=== PATIENT | male | born 1940 | race Two or more races ===

== ENCOUNTER 2018-04-01 18:02 | Inpatient (IN) | payer MEDICARE, MEDICAID ==
[~2018-04-01] VITALS: Ht 165.1 cm; Wt 59.4 kg
[2018-04-01 18:58] LABS: BASOPHILS % (AUTO) 0.9 % (0.0-2.0); HEMATOCRIT 31 % (39-51); HEMOGLOBIN 10.1 g/dL (13.5-17.5); LYMPHOCYTES # (AUTO) 0.9 /CMM (0.8-4.8); LYMPHOCYTES % (AUTO) 17.4 % (20.0-44.0); MEAN CORPUSCULAR HEMOGLOBIN 32 PG (26.0-33.0); MEAN CORPUSCULAR HGB CONC 33 g/dl (31.0-36.0); MEAN CORPUSCULAR VOLUME 99 fL (80-96); MONOCYTES # (AUTO) 0.6 /CMM (0.1-1.30); MONOCYTES % (AUTO) 11.5 % (2.0-12.0); NEUTROPHILS # (AUTO) 3.5 /CMM (1.8-8.9); NEUTROPHILS % (AUTO) 69.2 % (43.0-81.0); PLATELET COUNT (AUTO) 201 /CMM (150-450); RED BLOOD CELL COUNT(AUTO) 3.12 MIL/uL (4.5-6.0); WHITE BLOOD COUNT (AUTO) 5.1 K/uL (4.3-11.0)
[2018-04-01] MEDS ORDERED: IV NS 0.9% 500 ML BAG IV ONE (19:00)
[2018-04-01 19:06] LABS: CALCIUM, SERUM 8.5 mg/dL (8.5-10.1); CARBON DIOXIDE 31 mmol/L (21-32); CHLORIDE 106 mmol/L (98-107); CREATININE 1.4 mg/dL (0.6-1.3); GLUCOSE 116 mg/dL (74-106); POTASSIUM 3.9 mmol/L (3.5-5.1); SODIUM SERUM 141 mmol/L (136-145); UREA NITROGEN, BLOOD 21 mg/dL (7-18)
[2018-04-01 19:12] LABS: ALANINE AMINOTRANSFERASE 34 U/L (12-78); ALBUMIN 3.6 g/dL (3.4-5.0); ALKALINE PHOSPHATASE 85 U/L (46-116); ASPARTATE AMINOTRANSFERASE 22 U/L (15-37); BILIRUBIN,DIRECT 0.1 mg/dL (0.0-0.2); BILIRUBIN,TOTAL 0.3 mg/dL (0.2-1.0); TOTAL PROTEIN, SERUM 7.6 g/dL (6.4-8.2)
[2018-04-01] MEDS ORDERED: LIDOCAINE VISCOUS 2% UD 15 ML UDC ONE (21:51)
[2018-04-01] MEDS ORDERED: MIDAZOLAM HCL 2 MG/2ML VIAL ONE (21:57)
[2018-04-01] MEDS ORDERED: MORPHINE SULFATE INJ 2 MG/ML DISP.SYRIN IV PRN (22:00)
[2018-04-01] MEDS ORDERED: MIDAZOLAM HCL 2 MG/2ML VIAL IV ONE (22:00)
[2018-04-01] MEDS ORDERED: ZOLPIDEM TARTRATE 5 MG TABLET PO PRN (22:00)
[2018-04-01] MEDS ORDERED: IV NS 0.9% 1,000 ML IV PRN (22:00)
[2018-04-01] MEDS ORDERED: BISACODYL SUPP (10 MG) 10 MG/SUPP.RECT SUPP.RECT RC PRN (22:00)
[2018-04-01 23:05] VITALS: BP 148/73
[2018-04-02] MEDS: PANTOPRAZOLE 40 MG VIAL IV SCH ×3 (00:32→21:11)
[2018-04-02 01:37] VITALS: BP 137/75
[2018-04-02 04:00] VITALS: BP 154/71
[2018-04-02 04:59] VITALS: BP 154/71
[2018-04-02 07:12] LABS: EOSINOPHILS % (AUTO) 0.2 % (0.0-6.0); HEMATOCRIT 31 % (39-51); HEMOGLOBIN 10.1 g/dL (13.5-17.5); LYMPHOCYTES # (AUTO) 0.7 /CMM (0.8-4.8); LYMPHOCYTES % (AUTO) 13.5 % (20.0-44.0); MEAN CORPUSCULAR HEMOGLOBIN 33 PG (26.0-33.0); MEAN CORPUSCULAR HGB CONC 33 g/dl (31.0-36.0); MEAN CORPUSCULAR VOLUME 101 fL (80-96); MONOCYTES # (AUTO) 0.5 /CMM (0.1-1.30); MONOCYTES % (AUTO) 9.4 % (2.0-12.0); NEUTROPHILS # (AUTO) 3.9 /CMM (1.8-8.9); NEUTROPHILS % (AUTO) 76.9 % (43.0-81.0); PLATELET COUNT (AUTO) 145 /CMM (150-450); RDW COEFFICIENT OF VARIATION 15.9 (11.5-15.0); RED BLOOD CELL COUNT(AUTO) 3.04 MIL/uL (4.5-6.0)
[2018-04-02 07:14] LABS: CHOLESTEROL 111 mg/dL (<200); HDL CHOLESTEROL 47 mg/dL (40-60); LDL 59 mg/dL (0-99); TRIGLYCERIDES 62 mg/dL (30-150)
[2018-04-02 07:34] LABS: CALCIUM, SERUM 8.1 mg/dL (8.5-10.1); CARBON DIOXIDE 31 mmol/L (21-32); CHLORIDE 107 mmol/L (98-107); GLUCOSE 133 mg/dL (74-106); PHOSPHORUS 2.4 mg/dL (2.5-4.9); POTASSIUM 3.8 mmol/L (3.5-5.1); SODIUM SERUM 144 mmol/L (136-145); UREA NITROGEN, BLOOD 19 mg/dL (7-18)
[2018-04-02 08:00] VITALS: BP 124/81
[2018-04-02] MEDS ORDERED: MORPHINE SULFATE INJ 4 MG/ML DISP.SYRIN IV PRN (08:01)
[2018-04-02] MEDS ORDERED: AMLO10TA2 PO (08:05)
[2018-04-02] MEDS: HEPARIN SODIUM, PORCINE 5000 UNITS/1 ML VIAL SQ SCH ×3 (09:00→21:12)
[2018-04-02 16:00] VITALS: BP 172/70
[2018-04-02] MEDS ORDERED: NEUTRA PHOS 1 POWD.PACKET PO ONE (17:00)
[2018-04-02] MEDS: ONDANSETRON HCL/PF 4 MG/2 ML VIAL IVP PRN ×2 (17:57→21:11)
[2018-04-02 20:00] VITALS: BP 154/74
[2018-04-02] MEDS ORDERED: Morphine Sulfate Inj IV (20:44)
[2018-04-02] MEDS ORDERED: PANT40VI IV (20:44)
[2018-04-02] MEDS ORDERED: BISA10SU8 RC (20:44)
[2018-04-02] MEDS ORDERED: HEPA50008 SQ (20:44)
[2018-04-02] MEDS ORDERED: ONDA4VIA30 IVP (20:44)
[2018-04-02] MEDS ORDERED: NORM10004 IV (20:44)
== END 2018-04-02 22:59 | disposition short-term general hospital (02) | DRG 388 ==
LOC: ER 18:05 → MEDSG2 21:14 → TELE 22:41
PROVIDERS: ADMIT Nurse Practitioner Acute Care; ATTEND Nurse Practitioner Acute Care
DX: K56.609 Unspecified intestinal obstruction, unspecified as to partial versus complete obstruction (principal); N17.0 Acute kidney failure with tubular necrosis; I12.9 Hypertensive chronic kidney disease with stage 1 through stage 4 chronic kidney disease, or unspecified chronic kidney disease; N18.9 Chronic kidney disease, unspecified; Z85.038 Personal history of other malignant neoplasm of large intestine; Z85.05 Personal history of malignant neoplasm of liver; Z98.890 Other specified postprocedural states; Z90.49 Acquired absence of other specified parts of digestive tract; D63.8 Anemia in other chronic diseases classified elsewhere
CPT/HCPCS: 36415; 71045-TC; 74018; 80048-TC; 80061-TC; 80076-TC; 83735-TC; 84100-TC; 85025-TC; 87081-TC; A4606; C9113; J1644; J2250; J2405; J7030; Z7610

== ENCOUNTER 2020-07-01 18:55 | Inpatient (IN) | payer MEDICARE, OTHER ==
[~2020-07-01] VITALS: Ht 167.6 cm; Wt 63.5 kg
[~2020-07-01 18:55] MED LIST: AMLO-213 PO; BISA10SU11 RC; HEPA50008 SQ; Morphine Sulfate Inj IV; NORM10004 IV; ONDA4VIA23 IVP; PANT40VI IV
--- NOTE | 2020-07-01 19:05 | NUR ---
PT BIBRA C/O SOB. BILATERAL WHEEZING NOTED UPON AUSCULTATION. . PT SATTING ON THE 80'S ON ROOM AIR PER REPORT. PT RECEIVED BREATHING TX CIRCUIT WALKER. PT NOW SATTING 98%, PLACED ON 3LPM VIA N/C. PT CONNECTED TO THE SANDWICH ARTIST AND POX
[2020-07-01] MEDS ORDERED: ACETAMINOPHEN ES 500 MG TABLET ONE (19:08)
--- NOTE | 2020-07-01 19:19 | NUR ---
INFLUENZA SWAB SENT TO LAB
--- NOTE | 2020-07-01 19:19 | NUR ---
COVID SWAB COLLECTED AND SENT TO LAB
[2020-07-01] MEDS ORDERED: ACETAMINOPHEN ES 500 MG TABLET PO ONE (19:30)
--- NOTE | 2020-07-01 19:40 | NUR ---
XRAY AT BEDSIDE
[2020-07-01 19:44] LABS: HEMOGLOBIN 9.1 g/dL (13.5-17.5); MEAN CORPUSCULAR HGB CONC 32 g/dl (31.0-36.0); MEAN CORPUSCULAR VOLUME 104 fL (80-96); MONOCYTES # (AUTO) 0.3 /CMM (0.1-1.30)
[2020-07-01 19:49] LABS: BASOPHILS % (AUTO) 0.8 % (0.0-2.0); EOSINOPHILS % (AUTO) 0.5 % (0.0-6.0); HEMATOCRIT 28 % (39-51); LYMPHOCYTES % (AUTO) 22.9 % (20.0-44.0); MONOCYTES % (AUTO) 7.9 % (2.0-12.0); NEUTROPHILS % (AUTO) 67.9 % (43.0-81.0); PLATELET COUNT (AUTO) 168 /CMM (150-450); RED BLOOD CELL COUNT(AUTO) 2.72 MIL/uL (4.5-6.0); WHITE BLOOD COUNT (AUTO) 4.4 K/uL (4.3-11.0)
[2020-07-01 20:03] LABS: D-DIMER 5.64 mg/L(FEU (0.17-0.50)
[2020-07-01 20:13] LABS: ALANINE AMINOTRANSFERASE 102 U/L (12-78); ALKALINE PHOSPHATASE 185 U/L (46-116); ASPARTATE AMINOTRANSFERASE 257 U/L (15-37); B-TYPE NATRIURETIC PEPTIDE 1102 PG/ML (0-125); BILIRUBIN,TOTAL 1.3 mg/dL (0.2-1.0); CALCIUM, SERUM 7.1 mg/dL (8.5-10.1); CARBON DIOXIDE 24 mmol/L (21-32); CHLORIDE 107 mmol/L (98-107); CREATININE 1.1 mg/dL (0.6-1.3); GLUCOSE 153 mg/dL (74-106); SODIUM SERUM 144 mmol/L (136-145); TOTAL PROTEIN, SERUM 6.9 g/dL (6.4-8.2); UREA NITROGEN, BLOOD 22 mg/dL (7-18)
--- NOTE | 2020-07-01 20:22 | NUR ---
RT AT BEDSIDE FOR ABG
[2020-07-01 20:28] LABS: ABG BASE EXCESS -4.9 mmol/L; ABG OXYGEN SATURATION 91.7 % (92.0-98.5); ABG PCO2 37.2 mmHg (35.0-45.0); ABG PH 7.352 (7.350-7.450); ABG PO2 71.5 mmHg (75.0-100.0); AaDO2 170.9 mmHg; COHb 0.8 % (0.5-1.5); MetHb 0.4 % (0.0-1.5); O2Hb 90.6 % (94.0-97.0); SITE, ABG Right Radial; VENT MODE, BG 5L NC
[2020-07-01 20:28] LABS: BILIRUBIN,URINE SMALL (NEGATIVE); BLOOD, URINE NEGATIVE Ery/uL (NEGATIVE); COLOR,URINE YELLOW (YELLOW); LEUKOCYTE ESTERASE ,URINE NEGATIVE (NEGATIVE); NITRITE, URINE NEGATIVE (NEGATIVE); PH,URINE 5.5 (5.0-8.0); PROTEIN,URINE TRACE mg/dl (NEGATIVE); UGLUCOSE NEGATIVE (NEGATIVE)
[2020-07-01 20:42] LABS: RBC,URINE 0-2 /HPF (0-2); WBC,URINE 0-2 /HPF (0-3)
[2020-07-01 20:43] LABS: BACTERIA,URINE RARE /HPF (None Seen); SQUAMOUS EPITHELIAL CELL,UR 0-2 /HPF (None Seen)
--- NOTE | 2020-07-01 20:46 | NUR ---
PT'S SON CIELO [phone]
[2020-07-01 20:59] LABS: BAND % (MANUAL) 12 % (0.0-5.0); EOSINOPHILS % (MANUAL) 2 % (0-4); LYMPHOCYTES % (MANUAL) 26 % (16-48); MONOCYTES % (MANUAL) 5 % (0-11.0); NEUTROPHILS % (MANUAL) 55 (42-76)
--- NOTE | 2020-07-01 20:59 | NUR ---
YASHIRA SENT TO LAB
[2020-07-01] MEDS ORDERED: IOHEXOL-350 100 ML VIAL IV ONE (21:11)
[2020-07-01] MEDS ORDERED: CT SWABBABLE VALVE TRANS SET 1 EA INFUS.SET MC ONE (21:11)
[2020-07-01] MEDS ORDERED: IV NS 0.9% 250 ML IV ONE (21:11)
--- NOTE | 2020-07-01 21:13 | NUR ---
PT TAKEN TO RADIOLOGY FOR CT
[2020-07-01 21:56] LABS: C-REACTIVE PROTEIN 0.5 mg/dL (0.0-0.9); CREATINE KINASE, TOTAL 154 U/L (39-308); FERRITIN 916 ng/mL (8-388)
--- NOTE | 2020-07-01 22:00 | NUR ---
LAB CALLED REGARDING NEGATIVE COVID RESULT.
--- NOTE | 2020-07-01 22:22 | NUR ---
ATTEMPTED TO GIVE REPORT, NURSE NOT AVAILABLE
--- NOTE | 2020-07-01 22:41 | NUR ---
REPORT GIVEN TO JANNA MCNEIL FOR SOFIE
--- NOTE | 2020-07-01 23:07 | NUR ---
RN ADMITTING NOTE RECEIVED PATIENT FROM ER VIA GURNEY ACCOMPANIED BY 2 ER STAFF AND TRANSFERRED TO BED VIA 2 PERSON ASSIST. PATIENT IS ALERT AND ORIENTED X4, PRIMARY LANGUAGE IS NAURUAN BUT UNDERSTANDS AND SPEAKS LITHUANIAN. NO SIGN OF DISTRESS NOTED. PATIENT ON 2L VIA NC WITH RESPIRATIONS EVEN AND UNLABORED, SATURATING AT 99%, WHEEZING NOTED ON INSPIRATION. NOTED IV LINE AT LAC 18G, PATENT AND FLUSHING WELL, PORTACATH AT LEFT CHEST WALL INTACT. COMPREHENSIVE PHYSICAL ASSESSMENT DONE. NOTED NON PITTING EDEMA WITH REDNESS AT B LOWER LEGS. CALL LIGHT WITHIN REACH, SAFETY MEASURES IN PLACE, WILL CONTINUE MONITOR AND ASSESS THROUGHOUT THE SHIFT. WILL CARRY OUT MD ORDERS ACCORDINGLY.
[2020-07-01 23:17] LABS: BILIRUBIN,DIRECT 1.8 mg/dL (0.0-0.2)
[2020-07-01 23:25] VITALS: BP 144/78
--- NOTE | 2020-07-01 23:25 | NUR ---
RN NOTE TELEPHONE CALL RECEIVED FROM TAISHA OF LAB, RELAYED LACTIC ACID CRITICAL VALUE OF 3.5. DR MORALES WAS NOTIFIED AND ORDERED TO START 1/2 NS AT 75 ML/HR. COMPUTER NUMERICAL CONTROL PROGRAMMER WAS MADE AWARE.
--- NOTE | 2020-07-01 23:36 | NUR ---
PT TRANSFERRED TO ROOM VIA ACLS PROTOCOL
[2020-07-02] VITALS: BP 144/78
[2020-07-02] MEDS ORDERED: MAGNESIUM HYDROXIDE 30 ML UDC PO PRN
[2020-07-02] MEDS ORDERED: ONDANSETRON HCL/PF 4 MG/2 ML VIAL IVP PRN
[2020-07-02] MEDS ORDERED: ZOLPIDEM TARTRATE 5 MG TABLET PO PRN
[2020-07-02] MEDS ORDERED: MAG HYDROX/AL HYDROX/SIMETH 30 ML UDC PO PRN
[2020-07-02] MEDS ORDERED: HYDROCODONE/APAP 5/325MG TABLET PO PRN
[2020-07-02] MEDS ORDERED: Z GUARD REMEDY 2 OZ OINT TP PRN
[2020-07-02] MEDS: IV 1/2NS 1000 ML 1,000 ML IV PRN ×2 (00:32→22:37)
[2020-07-02 04:00] VITALS: BP 124/49
[2020-07-02] MEDS ORDERED: LEVOFLOXACIN 500 MG /D5W 100ML 500 MG in PREMIX 1 EA IV SCH (04:00)
[2020-07-02] MEDS ORDERED: LEVOFLOXACIN 500 MG /D5W 100ML 100 ML IV ONE (04:26)
[2020-07-02 07:12] LABS: BASOPHILS % (AUTO) 0.2 % (0.0-2.0); EOSINOPHILS % (AUTO) 0.1 % (0.0-6.0); HEMATOCRIT 23 % (39-51); HEMOGLOBIN 7.8 g/dL (13.5-17.5); LYMPHOCYTES # (AUTO) 0.2 /CMM (0.8-4.8); LYMPHOCYTES % (AUTO) 1.4 % (20.0-44.0); MEAN CORPUSCULAR HGB CONC 33 g/dl (31.0-36.0); MEAN CORPUSCULAR VOLUME 102 fL (80-96); MONOCYTES # (AUTO) 1.2 /CMM (0.1-1.30); MONOCYTES % (AUTO) 7.6 % (2.0-12.0); NEUTROPHILS # (AUTO) 14.6 /CMM (1.8-8.9); NEUTROPHILS % (AUTO) 90.7 % (43.0-81.0); PLATELET COUNT (AUTO) 99 /CMM (150-450); WHITE BLOOD COUNT (AUTO) 16.1 K/uL (4.3-11.0)
--- NOTE | 2020-07-02 07:37 | NUR ---
RN TELE1 PATIENT IN BED, NO S/S OF DISTRESS, ON 2L NASAL CANULA, O2 SAT >95%, A/O X 3, UP TO COMMODE WITH ASSIST, USES URINAL TO VOID, FALL RISK, BED ALARM ON, NPO, MICHELLE CATH LEFT CHEST WALL PRESENT INTACT CLEAN, LEFT AC 18G IV RUNNING 1/2 NS AT 75ML/HR, BED IN LOWEST LOCKED POSITION, CALL LIGHT WITHIN REACH, SAFETY MEASURES IN PLACE, WILL CONTINUE TO MONITOR.
[2020-07-02 07:51] LABS: CALCIUM, SERUM 6.9 mg/dL (8.5-10.1); CREATININE 1.1 mg/dL (0.6-1.3); PHOSPHORUS 3.4 mg/dL (2.5-4.9)
[2020-07-02 08:00] VITALS: BP 131/51
--- NOTE | 2020-07-02 08:00 | NUR ---
TELE 1 RECEIVED REPORT FROM NARESH IN LAB OF CRITICAL MAGNESIUM 0.8 WILL CONTACT
[2020-07-02 08:03] LABS: MAGNESIUM 0.8 mg/dL (1.8-2.4); POTASSIUM 3.7 mmol/L (3.5-5.1)
--- NOTE | 2020-07-02 08:30 | NUR ---
RN TELE1 CALLED SELENA MESA NP, BECAUSE WAS NOT ASSIGNED YET TO NOTIFY OF CRITICAL LAB OF MAGNESIUM 08. SHE ORDERED REPEAT MAGNESIUM DRAW. CALLED LAB TO HAVE THE ORDER COMPLETED SOON POSSIBLE.
[2020-07-02 08:42] LABS: BAND % (MANUAL) 7 % (0.0-5.0); LYMPHOCYTES % (MANUAL) 1 % (16-48); MONOCYTES % (MANUAL) 5 % (0-11.0); NEUTROPHILS % (MANUAL) 87 (42-76)
[2020-07-02] MEDS: ENOXAPARIN SODIUM 40 MG/0.4 ML DISP.SYRIN SQ SCH (09:00)
--- NOTE | 2020-07-02 09:00 | NUR ---
RN TELE1 PLATELETS ARE [address] BIOPSY ORDERED FOR TOMORROW. HELD LOVENOX PER MD ORDER.
[2020-07-02] MEDS ORDERED: DIPH1TAB PO (09:07)
[2020-07-02] MEDS ORDERED: VITA1TAB56 PO (09:07)
[2020-07-02] MEDS ORDERED: IBUP-1953 PO (09:07)
[2020-07-02] MEDS ORDERED: TAMS-12 PO (09:07)
[2020-07-02] MEDS ORDERED: BISA-79 PO (09:07)
--- NOTE | 2020-07-02 09:50 | NUR ---
JANNA TELE1 RECEIVED REPORT FROM NARESH IN LAB, REPEAT MAGNESIUM WAS 0.9 WILL NOTIFY JONNY WEEKS.
--- NOTE | 2020-07-02 09:55 | NUR ---
JANNA JACOBS1 REPORTED MAGNESIUM 0.9 TO JONNY WEEKS, ORDERED 2GM OF IV MAGNESIUM.
[2020-07-02] MEDS: Magnesium 1GM/D5W 100ML PREMIX 100 ML IV SCH ×2 (10:23→11:37)
[2020-07-02] MEDS: PANTOPRAZOLE 40 MG TABLET.DR PO SCH (10:24)
[2020-07-02 12:00] VITALS: BP 131/69
--- NOTE | 2020-07-02 12:05 | NUR ---
JANNA TELE1 O2 SAT 92%, PATIENT REMOVED NASAL CANULA RUNNING AT 2L, EDUCATED AND PUT IT BACK ON NOW O2 SAT IS 95 Addendum: 07/02/20 at 1209 by WIL CABRERA RN 96% NOT 95
[2020-07-02] MEDS ORDERED: ALBUTEROL FS 2.5 MG/0.5 ML VIAL.NEB NEB PRN (13:30)
[2020-07-02] MEDS: methylPREDNISolone SOD SUCC 40 MG/ML VIAL IV SCH ×2 (13:52→21:53)
[2020-07-02] MEDS: ACETAMINOPHEN 325 MG TABLET PO PRN (15:22)
--- NOTE | 2020-07-02 15:30 | NUR ---
RN TELE1 PRN TYLENOL GIVEN FOR TEMP OF 101.3. WILL REASSESS TEMP WITHIN 2 HOURS.
[2020-07-02 16:00] VITALS: BP 154/81
--- NOTE | 2020-07-02 17:30 | NUR ---
RN TELE1 REASSESSED PATIENT TEMPERATURE. IS NOW 99.5 DEGREES FAHRENHEIT. TYLENOL WAS EFFECTIVE IN LOWERING.
[2020-07-02] MEDS ORDERED: PIPERACILLIN /TAZOBACTAM 3.375 G in IV D5W 50 ML IV SCH (19:00)
--- NOTE | 2020-07-02 19:30 | NUR ---
RN TELE1 PATIENT IN BED, NO S/S OF DISTRESS, ON 2 L NC O2 SAT >95%, REPORTED POSTIVE BLOOD CULTURE AND ENDORSED CARE TO SALESPERSON DRIVER NURSE, LAST TEMP WAS HIGH AT 95.5 FARENHEIT, EDEMA PRESENT IN LEGS, IV L HAND INTACT CLEAN DRY, RUNNING 75ML 1.2NS AT 75ML/HR, PATIENT TOLERATING WELL, BED IN LOWEST LOCKED POSITION, CALL LIGHT WITHIN REACH, SAFETY MEASURES IN PLACE. ENDORSED TO [facility] SHIFT TO CALL SON, TO GET PRIMARY PHYSICIANS PHONE NUMBER, FOR JONNY WEEKS TO DISCUSS PATIENT CONDITION.
[2020-07-02 20:00] VITALS: BP 131/67
[2020-07-02] MEDS ORDERED: MEROPENEM 500 MG VIAL IV ONE (21:58)
[2020-07-02] MEDS: MEROPENEM 500 MG in IV NS 0.9% 50 ML IV SCH (22:07)
[2020-07-03] VITALS: BP 134/69
[2020-07-03 04:00] VITALS: BP 125/70
[2020-07-03] MEDS ORDERED: MEROPENEM 500 MG VIAL IV ONE (04:31)
[2020-07-03] MEDS: MEROPENEM 500 MG in IV NS 0.9% 50 ML IV SCH (04:47)
[2020-07-03] MEDS: methylPREDNISolone SOD SUCC 40 MG/ML VIAL IV SCH ×3 (04:54→21:33)
--- NOTE | 2020-07-03 05:32 | NUR ---
RN notes In bed resting comfortably watching TV with no distress noted. Breathing even and unlabored. On 2l O2 via nasal cannula, tolerating well. Alert and oriented, verbally able to communicate needs. Ambulatory. No complaint of pain or discomfort. Needs attended. Vital signs WNL. Collected urine specimen for repeat culture. For biopsy in the lung (mass). Kept clean and dry. Will endorse to next shift for continuity of care.
--- NOTE | 2020-07-03 07:30 | NUR ---
RN TELE1 PATIENT IN BED, NO S/S OF DISTRESS, ON 2L NC, O2 SAT >95%, A/O X 3 WITH EPISODES OF CONFUSION, TELE MONITOR IN PLACE, SINUS RHYTHM, AMMBULATORY WITH ASSIST, REDNESS AND SWELLING BILATERAL LEGS, EDEMA +2 BILATERAL LEGS, FALL RISK, BED ALARM ON, NPO SINCE MIDNIGHT, MICHELLE CATH PRESENT FOR CHEMO, L AC 18G IV INTACT CLEAN DRY FLUSHES WELL, RUNNING 1/2 NS AT 75ML/HR, BED IN LOWEST LOCKED POSITION, SAFETY MEASURES IN PLACE, WILL CONTINUE TO MONITOR.
--- NOTE | 2020-07-03 07:52 | NUR ---
RN TELE1 SPOKE TO ROUTE SALES DRIVER, NOTIFIED OF REDNESS AND EDEMA ON LEGS, SHORTNESS OF BREATH, PLAN TO HAVE CT OF LUNG WITH BIOPSY TODAY, NO NEW ORDERS.
[2020-07-03 08:00] VITALS: BP 136/60
[2020-07-03] MEDS: ENOXAPARIN SODIUM 40 MG/0.4 ML DISP.SYRIN SQ SCH (09:00)
[2020-07-03] MEDS: PANTOPRAZOLE 40 MG TABLET.DR PO SCH (09:16)
[2020-07-03] MEDS ORDERED: Magnesium 1GM/D5W 100ML PREMIX PIGGYBACK IV ONE (09:30)
[2020-07-03] MEDS ORDERED: BISACODYL (5 MG) 5 MG TABLET.DR PO PRN (09:30)
[2020-07-03] MEDS ORDERED: MGSO4/D5W 100 ML IV SCH ×2 (09:30→12:00)
[2020-07-03 10:32] LABS: BASOPHILS % (AUTO) 0.3 % (0.0-2.0); EOSINOPHILS % (AUTO) 0.1 % (0.0-6.0); HEMATOCRIT 31 % (39-51); LYMPHOCYTES # (AUTO) 0.2 /CMM (0.8-4.8); LYMPHOCYTES % (AUTO) 2.1 % (20.0-44.0); MEAN CORPUSCULAR HGB CONC 33 g/dl (31.0-36.0); MEAN CORPUSCULAR VOLUME 102 fL (80-96); MONOCYTES # (AUTO) 0.3 /CMM (0.1-1.30); MONOCYTES % (AUTO) 2.9 % (2.0-12.0); NEUTROPHILS # (AUTO) 8.5 /CMM (1.8-8.9); NEUTROPHILS % (AUTO) 94.6 % (43.0-81.0); PLATELET COUNT (AUTO) 134 /CMM (150-450); RED BLOOD CELL COUNT(AUTO) 3.01 MIL/uL (4.5-6.0)
[2020-07-03 10:37] LABS: CALCIUM, SERUM 7.4 mg/dL (8.5-10.1); CREATININE 1.2 mg/dL (0.6-1.3); MAGNESIUM 1.8 mg/dL (1.8-2.4); POTASSIUM 3.7 mmol/L (3.5-5.1)
[2020-07-03 11:10] LABS: IRON, SERUM 26 ug/dl (50-175); TOTAL IRON BINDING CAPACITY 214 ug/dl (250-450)
--- NOTE | 2020-07-03 11:44 | NUR ---
rn tele1 non admin magnesium ordered for 929 becasue order was not seen. contacted pharmacy to reorder.
[2020-07-03] MEDS: VITAMIN B COMP W-C 1 TAB TABLET PO SCH (11:45)
[2020-07-03] MEDS: AMLODIPINE BESYLATE 10 MG TABLET PO SCH (11:46)
[2020-07-03 12:00] VITALS: BP 137/64
--- NOTE | 2020-07-03 12:30 | NUR ---
REMOVED L HAND IV BECAUSE PATIENT REPORTED PAIN AND PUT 22 GAUGE INTO L ANTECUBITAL AREA. FLUSHING WELL, INTACT CLEAN DRY. TOLERATED WELL
[2020-07-03] MEDS: MEROPENEM 500 MG in IV NS 0.9% 100 ML IV SCH ×2 (13:56→21:33)
[2020-07-03] MEDS: IPRATROPIUM/ALBUTEROL INHALER IH SCH ×2 (13:56→18:15)
--- NOTE | 2020-07-03 15:30 | NUR ---
RN TELE1 CONTACTED [facility] TO RETRIEVE ONCOLOGY AND PATHOLOGY MEDICAL RECORDS, NO ANSWER BUT LEFT A MESSAGE FOR CALL BACK, ENDORSED FOLLOW UP TO FOOD SAFETY DIRECTOR TO RELAY TO TOMORROW'S RN.
[2020-07-03 16:00] VITALS: BP 133/52
--- NOTE | 2020-07-03 19:30 | NUR ---
RN TELE1 PATIENT IS IN BED, NO S/S OF DISTRESS, ON 2 L NASAL CANULA, O 2 SAT 99%, A/O X 3, IV UPPER LEFT ARM 22G IN PLACE RUNNING 1/2 NS AT 75ML/HR, AMBULATORY WITH ASSIST, COMMODE AT BEDSIDE, BED IN LOWEST LOCKED POSITION CALL LIGHT WIHTIN REACH, BED ALARM ON, SAFETY MEASURES INPLACE.
[2020-07-03 20:00] VITALS: BP 160/72
--- NOTE | 2020-07-03 20:00 | NUR ---
PENOLOGY TEACHER NOTES PATIENT IN BED, ALERT AND ORIENTED X3, ABLE TO COMMUNICATE NEEDS. ON O2 VIA NC AT 2 LPM WITH O2 SAT AT 97% DENIES ANY SOB NO RESPIRATORY DISTRESS NOTED, DENIES ANY CHEST PAIN. ON EXTERNAL MONITOR, WITH SINUS RHYTHM HR 92. WITH LEFT AC IVLINE PATENT AND INTACT NO SIGNS OF INFILTRATION NOTED, NO INFECTION NOTED. VS STABLE. CALL LIGHT WITHIN REACH, SIDE RAILS UP X 2, BED LOCKED IN LOWEST POSITION.
[2020-07-03] MEDS: IV 1/2NS 1000 ML 1,000 ML IV PRN (21:32)
[2020-07-04] VITALS (8 sets, daily range): BP systolic 119–150; BP diastolic 58–95
--- NOTE | 2020-07-04 | NUR ---
HOT MILL ROLLER NOTES PATIENT WITH EPISODE OF CONFUSION, GETTING UP FROM BED, LOOKING FOR HIS SON, CLAIMING SON IS COMING TO GIVE FOOD. ALSO WITH EPISODE OF REMOVING O2, NO SOB NOTED. ON FREQUENT VISUAL CHECK, REMINDED PATIENT NOT TO TAKE OUT OXYGEN.
[2020-07-04] MEDS: IPRATROPIUM/ALBUTEROL INHALER IH SCH ×4 (01:34→18:18)
[2020-07-04] MEDS: MEROPENEM 500 MG in IV NS 0.9% 100 ML IV SCH ×2 (05:18→14:52)
[2020-07-04] MEDS: methylPREDNISolone SOD SUCC 40 MG/ML VIAL IV SCH (05:18)
--- NOTE | 2020-07-04 06:28 | NUR ---
BURGLAR ALARM INSPECTOR NOTES PATIENT IN BED SLEEPING, EASILY AROUSABLE BY VERBAL AND TOUCH STIMULI. WITH O2 VIA NC AT 2 LPM, SATING AT 100%, BREATHING EVEN AND UNLABORED. NO SOB NOTED.. PATIENT REFUSED TO HAVE BLOOD PRESSURE AND TEMP CHECK, DENIES ANY PAIN.REFUSED BLOOD DRAW FOR AM LABS. UNCOOPERATIVE AND EASILY GETTING AGGRESSIVE WITH LEFT FOREARM IV PATENT AND INTACT WITH IVF 0.45 NS @ 75 ML/HR INFUSING WELL. ALL SAFETY MEASURES IMPLEMENTED, CALL LIGHT WITHIN REACH, SIDE RAILS UP X 2, BED LOCKED IN LOWEST POSITION. WILL ENDORSE TO AM SHIFT NURSE TO FOLLOW UP
[2020-07-04] MEDS ORDERED: methylPREDNISolone SOD SUCC 40 MG/ML VIAL IV SCH ×2 (07:00→21:00)
--- NOTE | 2020-07-04 07:30 | NUR ---
RN TELE1 PATIENT IN BED, NO S/S OF DISTRESS, A/O X3, ON 2L NASAL CANULA, O2 SAT> 95%, TELE MONITOR ON SINUS RHYTHM, BATHROOM PRIVILEGES, AMBULATORY, REDNESS AND EDEMA BILATERAL LEGS, BED ALARM ON CARDIAC DIET, CALL LIGHT WIHTIN REACH, BED IN LOWEST LOCKED POSITION, SAFETY MEASURES IN [place], IV REMOVED DURING NIGHT, WILL ATTEMPT TO GET A NEW ONE IN SOON.
[2020-07-04 08:07] LABS: IMMUNOGLOBULIN A, SERUM 234 mg/dL (61-437); IMMUNOGLOBULIN G, SERUM 1336 mg/dL (603-1613); IMMUNOGLOBULIN M, SERUM 63 mg/dL (15-143)
[2020-07-04] MEDS: TAMSULOSIN 0.4 MG CAP.SR.24H PO SCH (08:15)
[2020-07-04] MEDS: AMLODIPINE BESYLATE 10 MG TABLET PO SCH (08:15)
[2020-07-04] MEDS: VITAMIN B COMP W-C 1 TAB TABLET PO SCH (08:15)
[2020-07-04] MEDS: PANTOPRAZOLE 40 MG TABLET.DR PO SCH (08:15)
[2020-07-04] MEDS: ENOXAPARIN SODIUM 40 MG/0.4 ML DISP.SYRIN SQ SCH (08:22)
--- NOTE | 2020-07-04 08:23 | NUR ---
NON ADMIN LOVENOX BECAUSE PLATELETS ARE 134.
--- NOTE | 2020-07-04 09:00 | NUR ---
RN TELE1 PATIENT ACCIDENTALLY REMOVED THE IV DURING THE NIGHT SO REMOVED IV AND PLACED A 24 GAUGE IN THE LEFT FOREARM.
[2020-07-04 12:41] LABS: BASOPHILS % (AUTO) 0.3 % (0.0-2.0); HEMATOCRIT 30 % (39-51); HEMOGLOBIN 9.7 g/dL (13.5-17.5); LYMPHOCYTES # (AUTO) 0.2 /CMM (0.8-4.8); MEAN CORPUSCULAR HGB CONC 33 g/dl (31.0-36.0); MEAN CORPUSCULAR VOLUME 102 fL (80-96); MONOCYTES # (AUTO) 0.2 /CMM (0.1-1.30); MONOCYTES % (AUTO) 2.8 % (2.0-12.0); NEUTROPHILS % (AUTO) 93.9 % (43.0-81.0); PLATELET COUNT (AUTO) 156 /CMM (150-450); RED BLOOD CELL COUNT(AUTO) 2.91 MIL/uL (4.5-6.0); WHITE BLOOD COUNT (AUTO) 7.5 K/uL (4.3-11.0)
[2020-07-04 13:09] LABS: CALCIUM, SERUM 7.6 mg/dL (8.5-10.1); CREATININE 1.3 mg/dL (0.6-1.3); POTASSIUM 3.7 mmol/L (3.5-5.1)
--- NOTE | 2020-07-04 14:00 | NUR ---
RN TELE1 NOTIFIED JONNY WEEKS MD, THAT THE PATIENT'S IV IS NOT WORKING. ORDERED TO PLACE A MIDLINE.
--- NOTE | 2020-07-04 14:15 | NUR ---
RN TELE1 MIDLINE INSERTED TO RIGHT UPPER ARM OF THE PATIENT, TOLERATED WELL, INTACT CLEAN DRY, FLUSHES WELL.
--- NOTE | 2020-07-04 14:30 | NUR ---
RN TELE1 NOTIFIED PHARMACY THAT IV WAS NOT IN PLACE FOR THE PATIENTS AND NEW ONE THAT WAS INSERTED IS NO LONGER WORKING SO NOW THAT A MIDLINE IS PLACE ON THE PATIENT, PHARMACY APPROVED TO GIVE MERREM NOW.
[2020-07-04 15:12] LABS: *SPE A/G RATIO 0.8 (0.7-1.7); *SPE ALBUMIN 2.8 g/dL (2.9-4.4); *SPE ALPHA-1-GLOBULIN 0.5 g/dL (0.0-0.4); *SPE ALPHA-2-GLOBULIN 0.8 g/dL (0.4-1.0); *SPE GLOBULIN, TOTAL 3.6 g/dL (2.2-3.9); *SPE M-SPIKE Not Observed g/dL (Not Observed); *SPEGAMMA GLOBULIN 1.3 g/dL (0.4-1.8)
--- NOTE | 2020-07-04 16:20 | NUR ---
RN TELE1 URINE SPECIMEN COLLECTED, LABELED, AND NOTIFIED LAB. TOLD TO PUT IN FRIDGE AND LAB SAID THEY WILL PICK IT UP SOON.
--- NOTE | 2020-07-04 17:00 | NUR ---
RN TELE1 TRANSFERED PATIENT TO ROOM 312 BED 2 VIA WHEEL CHAIR, GAVE REPORT AT BEDSIDE TO ARNAV, ANSWERED ALL QUESTIONS, PATIENT TOLERATED WELL, MEDICATIONS WERE GIVEN TO ARNAV, BELONGINGS REVIEWED AND BROUGHT. GAVE ARNAV CONTACT INFO IF HAS FURTHER QUESTIONS.
--- NOTE | 2020-07-04 17:00 | NUR ---
BANKRUPTCY PARALEGAL NOTE Patient arrived from [facility] A/ox3 with episodes of confusion, showing no signs of acute distress or SOB, saturating 100% on 2L NC. BP 138/79 HR 88 T97.6F. Patient denies any pain or discomfort at this time. IV line in the ASHTYN midline is clean and intact running 0.45% NS@ 75mls/hr. Patient presents with BLE redness/swelling, unsteady gait. Bedside commode close to bed. Bed alarm on. Call light is within reach. Bed is in lowest position, side rails x2 in upright position, call light is within reach, fall safety and aspiration precautions enforced. Will continue with plan of care.
--- NOTE | 2020-07-04 19:04 | NUR ---
RN CLOSING NOTE Patient is resting in bed, A/ox3 with episodes of confusion, showing no signs of acute distress or SOB, saturating 100% on 2L. Patient denies any pain or discomfort at this time. IV line in the ASHTYN midline is clean and intact running 0.45% NS@ 75mls/hr. Patient presents with BLE redness/swelling, unsteady gait. Bedside commode close to bed. Bed alarm on. Call light is within reach. Bed is in lowest position, side rails x2 in upright position, call light is within reach, fall safety and aspiration precautions enforced. Will endorse to hourly shift for SOFIE.
--- NOTE | 2020-07-04 19:45 | NUR ---
MS RN OPENING NOTES RECEIVED PATIENT RESTING IN BED COMFORTABLY; A/OX3, TAGALOG/ETHIOPIAN SPEAKING; ABLE TO MAKE NEEDS KNOWN; BREATHING EVEN AND UNLABORED; TOLERATING 2LPM VIA NC WELL; NO SOB NOTED; NO DISTRESS NOTED; PATIENT ORIENTED TO STAFF AND UNIT; ASHTYN MIDLINE INTACT AND PATENT, FLUSHING WELL; SAFETY PRECAUTIONS IMPLEMENTED; BED LOCKED IN LOW POSITION; SIDE RAILSX2; CALL LIGHT WITHIN REACH; WILL CONT TO MONITOR
[2020-07-04] MEDS: LEVOFLOXACIN (250MG) 250 MG TABLET PO SCH (20:02)
--- NOTE | 2020-07-04 21:00 | NUR ---
FIELD EXAMINER NOTES REPORT GIVEN TO JANNA BELTRAN FOR SOFIE
--- NOTE | 2020-07-04 21:27 | NUR ---
RN NOTES RECEIVED REPORT FROM JANNA JIMENEZ. PATIENT IS IN STABLE CONDITION. SAFETY MEASURES IN PLACE, ASPIRATION PRECAUTION EMPHASIZED, CALL LIGHT WITH IN EASY REACH. COMMODE AT BEDSIDE, ALL NEEDS ANTICIPATED, WILL CONTINUE TO MONITOR ACCORDINGLY.
[2020-07-05 00:44] VITALS: BP 144/95
[2020-07-05 04:16] VITALS: BP 144/95
--- NOTE | 2020-07-05 06:11 | NUR ---
RN NOTES ALL NEEDS ATTENDED AND MET. ABLE TO REST AND SLEPT AT INTERVALS. SAFETY MEASURES IN PLACE. ASPIRATION PRECAUTION EMPHASIZED. CALL LIGHT WITHIN EASY REACH. ALL NEEDS ANTICIPATED. DENIES ANY PAIN OR DISCOMFORT AT THIS TIME. WILL ENDORSE TO AM NURSE FOR CONTINUITY OF CARE.
[2020-07-05] MEDS: PANTOPRAZOLE 40 MG TABLET.DR PO SCH (06:52)
[2020-07-05] MEDS: IPRATROPIUM/ALBUTEROL INHALER IH SCH ×3 (06:55→12:00)
--- NOTE | 2020-07-05 07:30 | NUR ---
MS/RN OPENING NOTE Patient resting in bed, A&O x 3, tagalog speaking. Denies any pain/discomfort at this time. Breathing even and non-labored on RA, no SOB noted. Patient removes 2L oxygen via NC from time to time. No cardiac distress noted. Midline access noted on ASHTYN, patent and intact, and running 75 ml/hr. Bed locked to its lowest position, side rails x 2 up, call light in hand. Will continue with current medical management.
[2020-07-05 08:00] VITALS: BP 160/86
[2020-07-05] MEDS: ENOXAPARIN SODIUM 40 MG/0.4 ML DISP.SYRIN SQ SCH ×2 (09:00→10:00)
[2020-07-05 09:11] LABS: AFP, TUMOR MARKER 2.1 ng/mL (0.0-8.3)
[2020-07-05] MEDS: TAMSULOSIN 0.4 MG CAP.SR.24H PO SCH (09:57)
[2020-07-05] MEDS: methylPREDNISolone SOD SUCC 40 MG/ML VIAL IV SCH (09:57)
[2020-07-05] MEDS: VITAMIN B COMP W-C 1 TAB TABLET PO SCH (09:57)
[2020-07-05] MEDS: AMLODIPINE BESYLATE 10 MG TABLET PO SCH (09:57)
[2020-07-05 11:12] LABS: BASOPHILS % (AUTO) 0.2 % (0.0-2.0); EOSINOPHILS % (AUTO) 0.1 % (0.0-6.0); HEMATOCRIT 31 % (39-51); HEMOGLOBIN 10.3 g/dL (13.5-17.5); LYMPHOCYTES # (AUTO) 0.4 /CMM (0.8-4.8); LYMPHOCYTES % (AUTO) 4.7 % (20.0-44.0); MEAN CORPUSCULAR HGB CONC 33 g/dl (31.0-36.0); MEAN CORPUSCULAR VOLUME 101 fL (80-96); MONOCYTES # (AUTO) 0.6 /CMM (0.1-1.30); MONOCYTES % (AUTO) 7.4 % (2.0-12.0); NEUTROPHILS % (AUTO) 87.6 % (43.0-81.0); PLATELET COUNT (AUTO) 180 /CMM (150-450); WHITE BLOOD COUNT (AUTO) 7.9 K/uL (4.3-11.0)
[2020-07-05 13:54] LABS: CALCIUM, SERUM 8.3 mg/dL (8.5-10.1); CREATININE 1.3 mg/dL (0.6-1.3); POTASSIUM 3.9 mmol/L (3.5-5.1)
[2020-07-05] MEDS: IPRATROPIUM NEB FS 0.5 MG/2.5 ML AMPUL.NEB NEB SCH ×2 (14:35→20:11)
[2020-07-05] MEDS: ALBUTEROL FS 2.5 MG/0.5 ML VIAL.NEB NEB SCH ×2 (14:35→20:11)
--- NOTE | 2020-07-05 16:15 | NUR ---
MS/RN NOTE Spoke with Bessy from [facility], states they've never received the fax for authorization of release of medical records regarding patient. Re-faxed patient's authorization of release of medical records at 1615, Bessy states they have received it and will fax patient's medical records. Awaiting for documents.
[2020-07-05] MEDS: IV 1/2NS 1000 ML 1,000 ML IV PRN (18:14)
--- NOTE | 2020-07-05 18:33 | NUR ---
MS/RN CLOSING NOTE Patient resting in bed, A&O x 3. All needs met and attended to. Denies any pain/discomfort at this time. Breathing even and non-labored on 2L oxygen via NC, no SOB noted. Patient removes 2L oxygen via NC from time to time. No cardiac distress noted. Midline access noted on ASHTYN, patent and intact, and running 1/2 NS @ 75 ml/hr. Fall precautions maintained. Will endorse to side sawyer nurse.
--- NOTE | 2020-07-05 19:32 | NUR ---
MS RN OPENING NOTES PATIENT AWAKE IN BED. A/OX3. ON 2L NC; NO S/S OF ACUTE RESPIRATORY DISTRESS; BREATHING IS EVEN AND UNLABORED. NO S/S OF PAIN NOTED. MIDLINE PRESENT ON RIGHT UPPER ARM WITH 1/2 NS RUNNING AT 75 ML/HR. PORTACATH PRESENT ON LEFT UPPER CHEST. SAFETY MEASURES IN PLACE AND PATIENT'S NEEDS MET. BED LOCKED, HOB ELEVATED, SIDE RAILS X2, CALL LIGHT WITHIN REACH. WILL CONTINUE TO MONITOR.
[2020-07-05 20:00] VITALS: BP 149/77
[2020-07-05] MEDS: LEVOFLOXACIN (250MG) 250 MG TABLET PO SCH (20:18)
[2020-07-06] MEDS: IPRATROPIUM NEB FS 0.5 MG/2.5 ML AMPUL.NEB NEB SCH ×3 (01:47→14:10)
[2020-07-06] MEDS: ALBUTEROL FS 2.5 MG/0.5 ML VIAL.NEB NEB SCH ×3 (01:47→14:10)
--- NOTE | 2020-07-06 07:30 | NUR ---
MS/RN OPENING NOTE Patient awake in bed, A&O x 3. Denies any pain/discomfort at this time. Breathing even and non-labored on RA, no SOB noted. Patient removes 2L oxygen via NC from time to time. No cardiac distress noted. Midline access noted on ASHTYN, patent and intact, and running 1/2 NS @ 75 ml/hr. Bed locked to its lowest position, side rails x 2 up, call light in hand. Will continue with current medical management.
--- NOTE | 2020-07-06 07:40 | NUR ---
MS RN CLOSING NOTES PATIENT SLEEPING, EASY TO AWAKEN. A/OX3. ON 2L NC; NO S/S OF ACUTE RESPIRATORY DISTRESS; BREATHING IS EVEN AND UNLABORED. NO C/O PAIN. MIDLINE PRESENT ON RIGHT UPPER ARM WITH 1/2 NS RUNNING AT 75 ML/HR. SAFETY MEASURES IN PLACE AND PATIENT'S NEEDS MET. ENDORSED TO DAY SHIFT RN PLAN OF CARE.
[2020-07-06 08:00] VITALS: BP 153/73
[2020-07-06] MEDS: TAMSULOSIN 0.4 MG CAP.SR.24H PO SCH (08:33)
[2020-07-06] MEDS: VITAMIN B COMP W-C 1 TAB TABLET PO SCH (08:33)
[2020-07-06] MEDS: methylPREDNISolone SOD SUCC 40 MG/ML VIAL IV SCH (08:33)
[2020-07-06] MEDS: PANTOPRAZOLE 40 MG TABLET.DR PO SCH (08:33)
[2020-07-06] MEDS: ENOXAPARIN SODIUM 40 MG/0.4 ML DISP.SYRIN SQ SCH (08:34)
[2020-07-06] MEDS: AMLODIPINE BESYLATE 10 MG TABLET PO SCH (08:53)
[2020-07-06] MEDS ORDERED: LEVO500T90 PO (09:30)
[2020-07-06] MEDS: ACETAMINOPHEN 325 MG TABLET PO PRN (13:22)
--- NOTE | 2020-07-06 13:22 | NUR ---
MS/RN NOTE Patient complaining of 3/10 dull ache pain on his abdominal hernia, states he just wants to take tylenol. Administered tylenol 650 mg. Will continue to monitor.
[2020-07-06 16:04] VITALS: BP 102/62
--- NOTE | 2020-07-06 17:15 | NUR ---
MS/CHANNELER OUTSOLE NOTE Patient picked up by son, Yariel, at 1715. All needs met and attended to. Breathing even and non-labored on RA. No respiratory or cardiac distress noted. ASHTYN midline removed with catheter intact, placed clean dry dressing on the site. No s/s of infiltration, infection, bleeding noted on site. Sensation from all peripheral extremities intact. Photos of skin impairments taken and placed on chart. Educated patient and son regarding discharge instructions, answered all their questions to their satisfaction. Patient and son verbalized understanding. Patient left facility @ 1715 with all belongings and hospital documents in hand.
== END 2020-07-06 18:00 | disposition home health service (06) | DRG 871 ==
LOC: ER 18:55 → TELE1 22:38 → MEDSG1 07-04 09:51 → MED 07-04 16:59
PROVIDERS: ADMIT Student in an Organized Health Care Education/Training Program; ATTEND Nurse Practitioner Acute Care
PROC: 05HY33Z Insertion of Infusion Device into Upper Vein, Percutaneous Approach (ICD-10-PCS; principal; 2020-07-04)
DX: A41.50 Gram-negative sepsis, unspecified (principal); J96.01 Acute respiratory failure with hypoxia; J18.9 Pneumonia, unspecified organism; J44.0 Chronic obstructive pulmonary disease with (acute) lower respiratory infection; J44.1 Chronic obstructive pulmonary disease with (acute) exacerbation; I31.3 Pericardial effusion (noninflammatory); C78.7 Secondary malignant neoplasm of liver and intrahepatic bile duct; E83.42 Hypomagnesemia; D69.6 Thrombocytopenia, unspecified; Z85.038 Personal history of other malignant neoplasm of large intestine; M48.10 Ankylosing hyperostosis [Forestier], site unspecified; B96.1 Klebsiella pneumoniae [K. pneumoniae] as the cause of diseases classified elsewhere; D53.9 Nutritional anemia, unspecified; D63.8 Anemia in other chronic diseases classified elsewhere; Z87.891 Personal history of nicotine dependence; Z79.899 Other long term (current) drug therapy; R00.0 Tachycardia, unspecified; I35.1 Nonrheumatic aortic (valve) insufficiency; R91.8 Other nonspecific abnormal finding of lung field
CPT/HCPCS: 36415; 36600; 71045-TC; 80048-TC; 80053-TC; 80061-TC; 81001; 82105; 82248-TC; 82378; 82550-TC; 82728-TC; 82784; 82803-TC; 83540-TC; 83605-TC; 83615-TC; 83735-TC; 83880; 84100-TC; 84155; 84165; 84484-TC; 85025-TC; 85378-TC; 85385-TC; 85730-TC; 86140-TC; 86334; 87040-TC; 87081-TC; 87086-TC; 87186-TC; 93307-TC; 93970-TC; 94799-TC; 97116-TC; 97530-TC; A4216; C9803; G0378; J1650; J1956; J2185; J2543; J2920; J3475; J3490; J7030; J7050; J7060; Q9967; U0003

== ENCOUNTER 2021-02-25 12:35 | Inpatient (IN) | payer OTHER, MEDICARE ==
[~2021-02-25] VITALS: Ht 165.1 cm; Wt 56.2 kg
[~2021-02-25 12:35] MED LIST changes: +BISA-79 PO; -BISA10SU11 RC; +DIPH1TAB PO; -HEPA50008 SQ; +IBUP-1953 PO; +LEVO500T90 PO; -Morphine Sulfate Inj IV; -NORM10004 IV; -ONDA4VIA23 IVP; -PANT40VI IV; +TAMS-12 PO; +VITA1TAB56 PO
[2021-02-25] MEDS ORDERED: IV NS 0.9% 500 ML BAG IV ONE (13:00)
[2021-02-25 13:09] LABS: BASOPHILS % (AUTO) 0.6 % (0.0-2.0); EOSINOPHILS % (AUTO) 1.1 % (0.0-6.0); HEMATOCRIT 37 % (39-51); HEMOGLOBIN 12.4 g/dL (13.5-17.5); LYMPHOCYTES # (AUTO) 1.4 K/uL (0.8-4.8); LYMPHOCYTES % (AUTO) 39.3 % (20.0-44.0); MEAN CORPUSCULAR HGB CONC 33 g/dl (31.0-36.0); MEAN CORPUSCULAR VOLUME 96 fL (80-96); MONOCYTES # (AUTO) 0.3 K/uL (0.1-1.30); MONOCYTES % (AUTO) 8.4 % (2.0-12.0); NEUTROPHILS # (AUTO) 1.8 K/uL (1.8-8.9); NEUTROPHILS % (AUTO) 50.6 % (43.0-81.0); PLATELET COUNT (AUTO) 72 K/uL (150-450); RED BLOOD CELL COUNT(AUTO) 3.86 MIL/uL (4.5-6.0); WHITE BLOOD COUNT (AUTO) 3.6 K/uL (4.3-11.0)
--- NOTE | 2021-02-25 13:20 | NUR ---
THE PATIENT BIBS FOR CONSTIPATED X 1 WEEK, URGE TO GO BM BUT UNABLE TO. TOOK LAXATIVE NO RELIEF. ABDOMEN SOFT AND NON-DISTENDED. WILL CONTINUE TO MONITOR THE PATIENT.
[2021-02-25 13:28] LABS: CALCIUM, SERUM 8.2 mg/dL (8.5-10.1); CARBON DIOXIDE 20 mmol/L (21-32); CHLORIDE 104 mmol/L (98-107); CREATININE 1.9 mg/dL (0.6-1.3); GLUCOSE 99 mg/dL (74-106); POTASSIUM 4.6 mmol/L (3.5-5.1); SODIUM SERUM 138 mmol/L (136-145); UREA NITROGEN, BLOOD 36 mg/dL (7-18)
[2021-02-25 13:33] LABS: ALANINE AMINOTRANSFERASE 30 U/L (12-78); ALKALINE PHOSPHATASE 67 U/L (46-116); ASPARTATE AMINOTRANSFERASE 42 U/L (15-37); BILIRUBIN,DIRECT 0.2 mg/dL (0.0-0.2); LIPASE 117 U/L (73-393); TOTAL PROTEIN, SERUM 8.3 g/dL (6.4-8.2)
--- NOTE | 2021-02-25 13:33 | NUR ---
THE PATIENT IS TAKEN TO CT
--- NOTE | 2021-02-25 13:42 | NUR ---
The patient is back from CT
[2021-02-25 14:04] LABS: EOSINOPHILS % (MANUAL) 2 % (0-4); LYMPHOCYTES % (MANUAL) 36 % (16-48); MONOCYTES % (MANUAL) 8 % (0-11.0); NEUTROPHILS % (MANUAL) 54 (42-76)
[2021-02-25 14:46] LABS: BILIRUBIN,URINE NEGATIVE (NEGATIVE); COLOR,URINE YELLOW (YELLOW); LEUKOCYTE ESTERASE ,URINE NEGATIVE (NEGATIVE); NITRITE, URINE NEGATIVE (NEGATIVE); PROTEIN,URINE NEGATIVE (NEGATIVE); UGLUCOSE NEGATIVE (NEGATIVE); UROBILINOGEN,URINE 0.2 EU/dL (0.2)
[2021-02-25 14:59] LABS: BACTERIA,URINE None seen /HPF (None Seen); SQUAMOUS EPITHELIAL CELL,UR 0-2 /HPF (None Seen); WBC,URINE 0-2 /HPF (0-3)
[2021-02-25] MEDS ORDERED: MORPHINE SULFATE INJ 2 MG/ML DISP.SYRIN IV ONE (15:30)
[2021-02-25] MEDS ORDERED: Z GUARD REMEDY 2 OZ OINT TP PRN (16:00)
[2021-02-25] MEDS ORDERED: ZOLPIDEM TARTRATE 5 MG TABLET PO PRN (16:00)
[2021-02-25] MEDS ORDERED: ONDANSETRON HCL/PF 4 MG/2 ML VIAL IVP PRN (16:00)
[2021-02-25] MEDS ORDERED: MAGNESIUM HYDROXIDE 30 ML UDC PO PRN (16:00)
[2021-02-25] MEDS ORDERED: IV NS 0.9% 1,000 ML IV PRN (16:00)
--- NOTE | 2021-02-25 16:07 | NUR ---
COVID SWAB DONE AND SENT TO THE LAB
--- NOTE | 2021-02-25 16:10 | NUR ---
PT ASSIGNED TO 309-1
--- NOTE | 2021-02-25 16:59 | NUR ---
REPORT GIVEN TO NURSE SHULTZ
--- NOTE | 2021-02-25 17:00 | NUR ---
RN NOTE RECEIVED REPORT FROM RA. PT TO BE BROUGHT TO ROOM 309-1. SCHEDULED FOR SURGERY TOMORROW [address] DELGADO.
[2021-02-25] MEDS ORDERED: PIPERACILLIN /TAZOBACTAM 3.375 G in IV D5W 50 ML IV SCH (18:00)
--- NOTE | 2021-02-25 18:10 | NUR ---
THE PATIENT IS TRANSFERED TO ASSIGNED ROOM IN STABLE CONDITION.
[2021-02-25] MEDS: ZOSYN IVPB 2.25 G in IV D5W 50ml IV SCH ×2 (19:20→23:41)
[2021-02-25 20:00] VITALS: BP 133/80
--- NOTE | 2021-02-25 20:31 | NUR ---
MS RN Opening Notes Patient was last seen awake resting in bed. Patient's on room air with no respiratory distress noted. Patient has an IV access on on his LAC gauge #20. Patient's in no acute distress at this time. Safety measures in place: Bed locked, bed alarm on, side rails upx3, and call light within reach. Will continue to monitor the patient.
[2021-02-26] VITALS (9 sets, daily range): BP systolic 98–142; BP diastolic 59–76
[2021-02-26] MEDS ORDERED: FENTANYL PF 100MCG/2ML AMPUL ONE (04:22)
[2021-02-26] MEDS ORDERED: MIDAZOLAM HCL 2 MG/2ML VIAL ONE (04:22)
[2021-02-26] MEDS ORDERED: ROCURONIUM BROMIDE 50 MG/5 ML ONE (04:23)
[2021-02-26] MEDS ORDERED: FAMOTIDINE/PF INJ 20 MG/2 ML VIAL IV ONE (04:23)
[2021-02-26] MEDS ORDERED: ANESTHESIA TRAY IN PYXIS 1 EA TRAY MC ONE (04:26)
[2021-02-26] MEDS ORDERED: BUPIVACAINE MPF 0.5% W/EPI INJ 30 ML VIAL ONE (04:27)
[2021-02-26] MEDS ORDERED: LIDOCAINE 1% INJ 50 ML MDV IJ ONE (04:27)
[2021-02-26] MEDS ORDERED: MORPHINE SULFATE INJ 2 MG/ML DISP.SYRIN IV PRN (04:30)
[2021-02-26] MEDS: ZOSYN IVPB 2.25 G in IV D5W 50ml IV SCH ×4 (05:08→23:02)
[2021-02-26] MEDS ORDERED: BUPIVACAINE 0.25% 75 MG/30 ML VIAL ONE (05:46)
[2021-02-26] MEDS ORDERED: hydrALAZINE HCL IV 20 MG VIAL ONE (06:25)
[2021-02-26] MEDS ORDERED: SEVOFLURANE 250 ML BOTTLE IH ONE (07:11)
--- NOTE | 2021-02-26 08:00 | NUR ---
received pt from recovery room with dx: s/p Reduction and repair incarcerated left inguinal hernia with extra-large mesh plug. surgical dressing in place, no drainage/discharge noted. vss, afebrile. instructed to call for assistance. regular diet ordered. will continue to monitor.
[2021-02-26] MEDS: AMLODIPINE BESYLATE 10 MG TABLET PO SCH (09:00)
[2021-02-26 09:14] LABS: BASOPHILS % (AUTO) 0.3 % (0.0-2.0); EOSINOPHILS % (AUTO) 0.1 % (0.0-6.0); HEMATOCRIT 40 % (39-51); HEMOGLOBIN 13.2 g/dL (13.5-17.5); LYMPHOCYTES # (AUTO) 0.2 K/uL (0.8-4.8); LYMPHOCYTES % (AUTO) 3.7 % (20.0-44.0); MEAN CORPUSCULAR HGB CONC 33 g/dl (31.0-36.0); MEAN CORPUSCULAR VOLUME 98 fL (80-96); MONOCYTES # (AUTO) 0.1 K/uL (0.1-1.30); MONOCYTES % (AUTO) 1.6 % (2.0-12.0); NEUTROPHILS # (AUTO) 5.1 K/uL (1.8-8.9); NEUTROPHILS % (AUTO) 94.3 % (43.0-81.0); PLATELET COUNT (AUTO) 87 K/uL (150-450); RED BLOOD CELL COUNT(AUTO) 4.11 MIL/uL (4.5-6.0); WHITE BLOOD COUNT (AUTO) 5.5 K/uL (4.3-11.0)
[2021-02-26 09:32] LABS: CHOLESTEROL 163 mg/dL (<200); HDL CHOLESTEROL 39 mg/dL (40-60); LDL 106 mg/dL (0-99); TRIGLYCERIDES 114 mg/dL (30-150)
[2021-02-26 09:38] LABS: ALANINE AMINOTRANSFERASE 74 U/L (12-78); ALBUMIN 3.6 g/dL (3.4-5.0); ALKALINE PHOSPHATASE 79 U/L (46-116); ASPARTATE AMINOTRANSFERASE 120 U/L (15-37); BILIRUBIN,TOTAL 1.4 mg/dL (0.2-1.0); CALCIUM, SERUM 7.5 mg/dL (8.5-10.1); CARBON DIOXIDE 18 mmol/L (21-32); CHLORIDE 109 mmol/L (98-107); CREATININE 1.8 mg/dL (0.6-1.3); GLUCOSE 185 mg/dL (74-106); MAGNESIUM 2.8 mg/dL (1.8-2.4); PHOSPHORUS 3.5 mg/dL (2.5-4.9); POTASSIUM 4.3 mmol/L (3.5-5.1); SODIUM SERUM 143 mmol/L (136-145); TOTAL PROTEIN, SERUM 7.7 g/dL (6.4-8.2); UREA NITROGEN, BLOOD 28 mg/dL (7-18)
--- NOTE | 2021-02-26 10:00 | NUR ---
m/s salt operator: notes resting comfortable in bed. no distress noted. vss. call light within reach.
[2021-02-26 11:25] LABS: LYMPHOCYTES % (MANUAL) 5 % (16-48); MONOCYTES % (MANUAL) 2 % (0-11.0); NEUTROPHILS % (MANUAL) 93 (42-76)
--- NOTE | 2021-02-26 12:00 | NUR ---
m/s word processing supervisor: notes having lunch at this time. hob elevated. vss. will continue to monitor.
[2021-02-26] MEDS: ACETAMINOPHEN 325 MG TABLET PO PRN ×2 (13:11→19:41)
--- NOTE | 2021-02-26 14:00 | NUR ---
m/s fill plant operator: notes resting comfortable in bed. no distress noted. call light within reach.
--- NOTE | 2021-02-26 17:30 | NUR ---
m/s dairy feed mixing operator: notes having dinner at this time. hob elevated. call light within reach.
--- NOTE | 2021-02-26 18:30 | NUR ---
m/s measurement and sensing technician: notes resting quietly in bed by watching tv. no c/o pain or any discomfort. iv fluids infusing. instructed to call for assistance.
--- NOTE | 2021-02-26 19:00 | NUR ---
m/s special education secretary: notes report given to stan (rn) for continuity of care.
--- NOTE | 2021-02-26 19:30 | NUR ---
MS RN OPENING NOTES RECEIVED PATIENT IN BED, AWAKE, A&0 X 4 WITH PERIODS OF FORGETFULNESS NOTED. ON ROOM AIR TOLERATING WELL. NO S/SX OF ACUTE DISTRESS NOTED. IV ACCESS ON LAC, PATENT WITH AN ONGOING IVF OF NS 75CC/HR INFUSING WELL. NO S/SX OF INFILTRATION NOTED. ON REGULAR DIET. WITH COMPLAINTS OF PAIN ON LEFT LOWER ABDOMEN WITH PAIN SCALE OF 3/10. DUE PRN PAIN MEDICATION GIVEN ORDERED. SAFETY PRECAUTIONS IN PLACE: BED ON LOWEST LOCKED POSITION, KEPT SIDE RAILS UP X 2. KEPT CALL LIGHT WITHIN EASY REACH. WILL CONTINUE TO MONITOR PATIENT'S CURRENT STATUS.
[2021-02-27] MEDS: HYDROCODONE/APAP 5/325MG TABLET PO PRN (01:42)
--- NOTE | 2021-02-27 01:45 | NUR ---
RN NOTES PATIENT HAS C/O OF PAIN ON LEFT LOWER ABDOMEN WITH PAIN SCALE OF 7/10, DUE NORCO GIVEN ORDERED. WILL CONTINUE TO MONITOR PATIENT'S PAIN STATUS.
[2021-02-27] MEDS: ZOSYN IVPB 2.25 G in IV D5W 50ml IV SCH ×4 (05:34→23:23)
--- NOTE | 2021-02-27 06:30 | NUR ---
MS RN CLOSING NOTES PATIENT IN BED, AWAKE, A&0 X 3 WITH PERIODS OF FORGETFULNESS NOTED. ON ROOM AIR TOLERATING WELL. NO S/SX OF ACUTE DISTRESS NOTED. IV ACCESS ON LAC, PATENT WITH AN ONGOING IVF OF NS 75CC/HR INFUSING WELL. NO S/SX OF INFILTRATION NOTED. ON REGULAR DIET. WITH COMPLAINTS OF PAIN ON LEFT LOWER ABDOMEN WITH PAIN SCALE OF 2/10. SAFETY PRECAUTIONS IN PLACE AND MAINTAINED DURING THE SHIFT: BED ON LOWEST LOCKED POSITION, KEPT SIDE RAILS UP X 2. KEPT CALL LIGHT WITHIN EASY REACH. ALL NEEDS ATTENDED AND MET. WILL ENDORSE TO MORNING SHIFT NURSE FOR SOFIE.
[2021-02-27 07:04] LABS: EOSINOPHILS % (AUTO) 0.4 % (0.0-6.0); HEMATOCRIT 34 % (39-51); HEMOGLOBIN 11.5 g/dL (13.5-17.5); LYMPHOCYTES # (AUTO) 0.5 K/uL (0.8-4.8); LYMPHOCYTES % (AUTO) 4.8 % (20.0-44.0); MEAN CORPUSCULAR HGB CONC 34 g/dl (31.0-36.0); MEAN CORPUSCULAR VOLUME 97 fL (80-96); MONOCYTES % (AUTO) 10.2 % (2.0-12.0); NEUTROPHILS # (AUTO) 8.4 K/uL (1.8-8.9); NEUTROPHILS % (AUTO) 84.6 % (43.0-81.0); PLATELET COUNT (AUTO) 78 K/uL (150-450); RED BLOOD CELL COUNT(AUTO) 3.53 MIL/uL (4.5-6.0); WHITE BLOOD COUNT (AUTO) 9.9 K/uL (4.3-11.0)
[2021-02-27 07:45] LABS: CALCIUM, SERUM 7.3 mg/dL (8.5-10.1); CARBON DIOXIDE 17 mmol/L (21-32); CHLORIDE 107 mmol/L (98-107); CREATININE 2.9 mg/dL (0.6-1.3); GLUCOSE 98 mg/dL (74-106); POTASSIUM 5.1 mmol/L (3.5-5.1); SODIUM SERUM 139 mmol/L (136-145); UREA NITROGEN, BLOOD 41 mg/dL (7-18)
--- NOTE | 2021-02-27 07:50 | NUR ---
m/s sectionizer: md visit seen and examined by dr. martin with orders. orders acknowledged.
[2021-02-27 08:00] VITALS: BP 166/88
[2021-02-27] MEDS: AMLODIPINE BESYLATE 10 MG TABLET PO SCH (08:30)
--- NOTE | 2021-02-27 09:45 | NUR ---
m/s soil technologist: surgeon f/u seen by dr. lopez at this time.
[2021-02-27 10:38] LABS: LYMPHOCYTES % (MANUAL) 3 % (16-48); MONOCYTES % (MANUAL) 8 % (0-11.0); NEUTROPHILS % (MANUAL) 89 (42-76)
--- NOTE | 2021-02-27 14:00 | NUR ---
m/s predatory animal hunter: notes pt pulled his iv out accidently when he got out of bed. pt remains confuse and disoriented to place and situation. reality orientation provided prn. will continue to monitor. attempted to insert iv, but unsuccessful. pt refused iv insertion after. will continue to monitor.
[2021-02-27 15:39] VITALS: BP 149/70
--- NOTE | 2021-02-27 16:00 | NUR ---
m/s composition professor: notes pt still refusing iv insertion, pt has giuseppe cath, but using it for chemo as stated.
--- NOTE | 2021-02-27 17:26 | NUR ---
m/s control chemist: nephro f/u seen by dr. BLEDSOE with order for us bladder. order acknowledged.
--- NOTE | 2021-02-27 18:15 | NUR ---
m/s carpenter supervisor wooden ship: notes us bladder scan result post void with 278ml.
--- NOTE | 2021-02-27 18:40 | NUR ---
m/s canvas goods supervisor: notes attempted to insert iv, still unsuccessful. pt has a giuseppe cath, but using it for chemo. dr. martin notified and made aware with order okay for midline insertion. order carried out and acknowledge. cn and danitag bead supervisor aware.
--- NOTE | 2021-02-27 19:20 | NUR ---
m/s jailor: notes report given to stan (rn) for continuity of care.
--- NOTE | 2021-02-27 19:30 | NUR ---
MS RN OPENING NOTES RECEIVED PATIENT IN BED, AWAKE, WITH PERIODS OF FORGETFULNESS NOTED. NOT IN ANY FORM OF ACUTE DISTRESS NOTED. NO IV ACCESS AT THIS TIME. FOR MIDLINE INSERTION. ON ROOM AIR TOLERATING WELL, NO SOB NOTED. SAFETY PRECAUTIONS IN PLACE: BED IN LOWEST LOCKED POSITION, SIDE RAILS UP X 2, KEPT CALL LIGHT WITHIN EASY REACH. WILL CONTINUE TO MONITOR PATIENT'S CURRENT CONDITION.
[2021-02-27 20:00] VITALS: BP 145/75
[2021-02-27 20:21] VITALS: BP 145/75
[2021-02-28] MEDS: ZOSYN IVPB 2.25 G in IV D5W 50ml IV SCH ×3 (05:12→18:02)
--- NOTE | 2021-02-28 06:33 | NUR ---
MS RN CLOSING NOTES PATIENT IN BED, AWAKE, WITH PERIODS OF FORGETFULNESS NOTED. NOT IN ANY FORM OF ACUTE DISTRESS NOTED. IV ACCESS ON ASHTNY MIDLINE, PATENT AND FLUSHES WELL, NO REDNESS, NO S/SX OF INFILTRATION NOTED.. ON ROOM AIR TOLERATING WELL, NO SOB NOTED. SAFETY PRECAUTIONS IN PLACE AND MAINTAINED DURING THE SHIFT: BED IN LOWEST LOCKED POSITION, SIDE RAILS UP X 2, KEPT CALL LIGHT WITHIN EASY REACH. ALL NEEDS ATTENDED, WILL ENDORSE TO MORNING SHIFT NURSE FOR SOFIE.
[2021-02-28 07:42] LABS: BASOPHILS % (AUTO) 0.2 % (0.0-2.0); EOSINOPHILS % (AUTO) 0.9 % (0.0-6.0); HEMATOCRIT 32 % (39-51); LYMPHOCYTES # (AUTO) 0.5 K/uL (0.8-4.8); LYMPHOCYTES % (AUTO) 6.2 % (20.0-44.0); MEAN CORPUSCULAR HGB CONC 34 g/dl (31.0-36.0); MEAN CORPUSCULAR VOLUME 97 fL (80-96); MONOCYTES # (AUTO) 0.9 K/uL (0.1-1.30); MONOCYTES % (AUTO) 11.4 % (2.0-12.0); NEUTROPHILS # (AUTO) 6.6 K/uL (1.8-8.9); NEUTROPHILS % (AUTO) 81.3 % (43.0-81.0); PLATELET COUNT (AUTO) 79 K/uL (150-450); RED BLOOD CELL COUNT(AUTO) 3.35 MIL/uL (4.5-6.0); WHITE BLOOD COUNT (AUTO) 8.1 K/uL (4.3-11.0)
[2021-02-28 07:55] LABS: CALCIUM, SERUM 7.4 mg/dL (8.5-10.1); CARBON DIOXIDE 21 mmol/L (21-32); CHLORIDE 110 mmol/L (98-107); CREATININE 2.5 mg/dL (0.6-1.3); GLUCOSE 104 mg/dL (74-106); POTASSIUM 4.7 mmol/L (3.5-5.1); SODIUM SERUM 142 mmol/L (136-145)
--- NOTE | 2021-02-28 07:56 | NUR ---
RN NOTE INSERTED CLARKE CATHETER [address]F PER DR EVANS. CATHETER INSERTED W STERILE TECHNIQUE. TOLERATED WELL.
[2021-02-28 08:00] VITALS: BP 151/76
[2021-02-28 08:01] VITALS: BP 151/76
[2021-02-28 08:06] LABS: UREA NITROGEN, BLOOD 42 mg/dL (7-18)
--- NOTE | 2021-02-28 08:23 | NUR ---
RN OPENING NOTE- PATIENT IN BED, AWAKE, CONFUSION NOTED. ASHTYN MIDLINE . ON ROOM AIR TOLERATING WELL, NO SOB NOTED. SAFETY PRECAUTIONS IN PLACE: BED IN LOWEST LOCKED POSITION, SIDE RAILS UP X 2, KEPT CALL LIGHT WITHIN EASY REACH. WILL CONTINUE TO MONITOR PATIENT'S CURRENT CONDITION.
[2021-02-28] MEDS: TAMSULOSIN 0.4 MG CAP.SR.24H PO SCH (09:36)
[2021-02-28] MEDS: AMLODIPINE BESYLATE 10 MG TABLET PO SCH (09:37)
[2021-02-28 11:02] LABS: EOSINOPHILS % (MANUAL) 2 % (0-4); LYMPHOCYTES % (MANUAL) 4 % (16-48); MONOCYTES % (MANUAL) 11 % (0-11.0); NEUTROPHILS % (MANUAL) 83 (42-76)
[2021-02-28 16:00] VITALS: BP 148/71
[2021-02-28] MEDS: HYDROCODONE/APAP 5/325MG TABLET PO PRN (18:36)
--- NOTE | 2021-02-28 19:08 | NUR ---
RN CLOSING NOTE- CLARKE CATHETER PATENT DRAINING YELLOW UA. 1400 CC OUTPUT. PATIENT IN BED, AWAKE, CONFUSION NOTED. ASHTYN MIDLINE . ON ROOM AIR TOLERATING WELL, NO SOB NOTED. SAFETY PRECAUTIONS IN PLACE: BED IN LOWEST LOCKED POSITION, SIDE RAILS UP X 2, KEPT CALL LIGHT WITHIN EASY REACH. WILL CONTINUE TO MONITOR PATIENT'S CURRENT CONDITION. NORCO GIVEN FOR ABDOMINAL PAIN 6-10. EFFECTIVE
--- NOTE | 2021-02-28 19:20 | NUR ---
MS/RN OPENING NOTE RECEIVED PATIENT SLEEPING IN BED. ALERT AND ORIENTED X 2-3. ABLE TO MAKE NEEDS KNOWN. DENIES PAIN AT THIS TIME. CONTINUES ON ROOM AIR WITH NO S/SX OF RESPIRATORY DISTRESS NOTED. IV ACCESS TO RIGHT UPPER ARM MIDLINE INTACT, PATENT AND SALINE LOCKED. CLARKE CATHETER IN PLACE DRAINING CLEAR, YELLOW URINE. CONTINUES ON IV ABX. CALL LIGHT WITHIN REACH. ASPIRATION, FALL AND SAFETY PRECAUTIONS MAINTAINED. WILL CONTINUE TO MONITOR.
[2021-02-28 20:00] VITALS: BP 141/64
[2021-03-01] MEDS: HYDROCODONE/APAP 5/325MG TABLET PO PRN ×3 (00:13→20:24)
[2021-03-01] MEDS: ZOSYN IVPB 2.25 G in IV D5W 50ml IV SCH ×4 (00:13→17:40)
--- NOTE | 2021-03-01 00:15 | NUR ---
MS/RN NOTE PATIENT WITH C/O ABDOMINAL PAIN AND SURGICAL SITE PAIN 02/10 - ADMINISTERED NORCO WITH PENDING EFFECT.
--- NOTE | 2021-03-01 00:45 | NUR ---
MS/RN NOTE PATIENT CURRENTLY SLEEPING
--- NOTE | 2021-03-01 06:20 | NUR ---
MS/RN CLOSING NOTE PATIENT CURRENTLY RESTING IN BED. AWAKE, ALERT AND ORIENTED X 3. ABLE TO MAKE NEEDS KNOWN. DENIES PAIN AT THIS TIME. CONTINUES ON ROOM AIR WITH NO S/SX OF RESPIRATORY DISTRESS NOTED. IV ACCESS TO RIGHT UPPER ARM MIDLINE INTACT, PATENT AND SALINE LOCKED. CLARKE CATHETER IN PLACE DRAINING CLEAR, YELLOW URINE. CONTINUES ON IV ABX. CALL LIGHT WITHIN REACH. ASPIRATION, FALL AND SAFETY PRECAUTIONS MAINTAINED. WILL ENDORSE PLAN OF CARE TO ONCOMING SHIFT.
[2021-03-01 06:50] LABS: BASOPHILS % (AUTO) 0.2 % (0.0-2.0); EOSINOPHILS % (AUTO) 1.8 % (0.0-6.0); HEMATOCRIT 32 % (39-51); HEMOGLOBIN 10.8 g/dL (13.5-17.5); LYMPHOCYTES % (AUTO) 12.4 % (20.0-44.0); MEAN CORPUSCULAR HGB CONC 34 g/dl (31.0-36.0); MEAN CORPUSCULAR VOLUME 97 fL (80-96); MONOCYTES # (AUTO) 1.1 K/uL (0.1-1.30); MONOCYTES % (AUTO) 14.5 % (2.0-12.0); NEUTROPHILS # (AUTO) 5.5 K/uL (1.8-8.9); NEUTROPHILS % (AUTO) 71.1 % (43.0-81.0); PLATELET COUNT (AUTO) 85 K/uL (150-450); RED BLOOD CELL COUNT(AUTO) 3.31 MIL/uL (4.5-6.0); WHITE BLOOD COUNT (AUTO) 7.7 K/uL (4.3-11.0)
[2021-03-01 07:12] LABS: CALCIUM, SERUM 7.5 mg/dL (8.5-10.1); CARBON DIOXIDE 18 mmol/L (21-32); CHLORIDE 111 mmol/L (98-107); GLUCOSE 121 mg/dL (74-106); POTASSIUM 4.4 mmol/L (3.5-5.1); SODIUM SERUM 142 mmol/L (136-145); UREA NITROGEN, BLOOD 30 mg/dL (7-18)
--- NOTE | 2021-03-01 07:40 | NUR ---
MS RN OPENING NOTES RECEIVED PATIENT AWAKE IN BED IN NO ACUTE SIGNS OF DISTRESS. A/O X 3. ABLE TO MAKE NEEDS KNOWN, DENIES PAIN OR ANY DISCOMFORTS AT THIS TIME. ON ROOM AIR, BREATHING EVEN AND UNLABORED, NO SOB NOTED. RIGHT UPPER ARM MIDLINE INTACT, PATENT AND FLUSHES WELL. Rahman IN PLACE AND DRAINING CLEAR YELLOW URINE VIA GRAVITY. SAFETY MEASURES IN PLACE: BED IN LOWEST LOCKED POSITION WITH SR UP X2. CALL LIGHT WITHIN REACH. WILL CONTINUE TO MONITOR PT ACCORDINGLY.
[2021-03-01 08:00] VITALS: BP 133/68
[2021-03-01] MEDS: TAMSULOSIN 0.4 MG CAP.SR.24H PO SCH (09:03)
[2021-03-01] MEDS: AMLODIPINE BESYLATE 10 MG TABLET PO SCH (09:04)
[2021-03-01 16:00] VITALS: BP 101/54
--- NOTE | 2021-03-01 18:41 | NUR ---
MS RN CLOSING NOTES PATIENT IN BED AWAKE AND WATCHING TV AT THIS TIME. A/O X 3-4. ABLE TO MAKE NEEDS KNOWN. ON ROOM AIR, BREATHING EVEN AND UNLABORED, NO SOB NOTED DURING SHIFT. ASHTYN MIDLINE INTACT, PATENT AND FLUSHES WELL. CLARKE IN PLACE DRAINING CLEAR YELLOW URINE TO BEDSIDE URINARY BAG, CLARKE CARE DONE. ALL NEEDS AND CARE ATTENDED WELL. SAFETY MEASURES KEPT IN PLACE: BED IN LOWEST LOCKED POSITION WITH SR UP X2. CALL LIGHT WITHIN REACH. WILL ENDORSE SOFIE TO ADULT LIVE IN CAREGIVER NURSE.
--- NOTE | 2021-03-01 19:42 | NUR ---
RN OPENING NOTES: [id number] PATIENT AWAKE IN SITTING ON THE CHAIR, NO COMPLAIN OF PAIN AND DISCOMFORT, A/OX2-3 WITH EPISODE OF FORGETFULNESS, BRP WITH SUPERVISION, UNSTEADY GAIT, ON CLARKE CATH WITH 50CC OUTPUT, WITH ASHTYN MIDLINE #18 SL, PATIENT KEPT CLEANAND DRY, ALL NEEDS MET, WILL CONTINUE TO MONITOR.
[2021-03-01 20:00] VITALS: BP 108/61
[2021-03-02] MEDS: ZOSYN IVPB 2.25 G in IV D5W 50ml IV SCH ×3 (00:27→11:49)
--- NOTE | 2021-03-02 05:00 | NUR ---
RN NOTES: PATIENT ACCIDENTALLY PULLED HIS MIDLINE AND FOUND AT BEDSIDE, WHEN ASK HE SAID MAYBE HE WAS DREAMING, NO BLEEDING WAS NOTED:
[2021-03-02 07:00] LABS: BASOPHILS % (AUTO) 0.2 % (0.0-2.0); EOSINOPHILS % (AUTO) 2.7 % (0.0-6.0); HEMATOCRIT 33 % (39-51); HEMOGLOBIN 10.8 g/dL (13.5-17.5); LYMPHOCYTES # (AUTO) 0.9 K/uL (0.8-4.8); LYMPHOCYTES % (AUTO) 11.9 % (20.0-44.0); MEAN CORPUSCULAR HGB CONC 33 g/dl (31.0-36.0); MEAN CORPUSCULAR VOLUME 98 fL (80-96); MONOCYTES # (AUTO) 1.2 K/uL (0.1-1.30); MONOCYTES % (AUTO) 15.7 % (2.0-12.0); NEUTROPHILS # (AUTO) 5.3 K/uL (1.8-8.9); NEUTROPHILS % (AUTO) 69.5 % (43.0-81.0); PLATELET COUNT (AUTO) 91 K/uL (150-450); RED BLOOD CELL COUNT(AUTO) 3.32 MIL/uL (4.5-6.0); WHITE BLOOD COUNT (AUTO) 7.7 K/uL (4.3-11.0)
--- NOTE | 2021-03-02 07:00 | NUR ---
RN CLOSING NOTES: PATIENT AWAKE IN BED, NO COMPLAIN OF PAIN AN DISCOMFORT, BED IN LOW POSITION, CALL LIGHTS WITHIN REACH, A/OX 3, AMBULATORY WITH SUPERVISION, ON CLARKE CATHETER INFUSING WELL, WITH IV LINE AT RFA #22 INFUSING WELL, PATIENT KEPT CLEAN AND DRY, ALL NEEDS MET ENDORSE TO INCOMING SHIFT.
[2021-03-02 07:05] LABS: CALCIUM, SERUM 8.2 mg/dL (8.5-10.1); CARBON DIOXIDE 19 mmol/L (21-32); CHLORIDE 111 mmol/L (98-107); GLUCOSE 102 mg/dL (74-106); POTASSIUM 4.7 mmol/L (3.5-5.1); SODIUM SERUM 143 mmol/L (136-145); UREA NITROGEN, BLOOD 35 mg/dL (7-18)
--- NOTE | 2021-03-02 07:12 | NUR ---
MS RN OPENING NOTE RECEIVED PATIENT ON BED, ALERT AND ORIENTED X 3. ABLE TO MAKE NEEDS KNOWN. PATIENT DENIES PAIN AT THIS TIME. PATIENT ON ROOM AIR WITH EQUAL AND UNLABORED BREATHING. WITH NO SIGNS OF RESPIRATORY DISTRESS. WITH RIGHT FOREARM IV ACCESS G22, ON SALINE LOCK, PATENT AND INTACT. MAINTAINED ON MODERATE TO HIGH BACK REST. CALL LIGHT WITHIN REACH AT ALL TIMES. SAFETY PRECAUTIONS MAINTAINED WITH BED LOCKED AND AT LOWEST POSITION. WILL CONTINUE TO MONITOR.
[2021-03-02 08:00] VITALS: BP 169/85
[2021-03-02] MEDS: AMLODIPINE BESYLATE 10 MG TABLET PO SCH (08:40)
[2021-03-02] MEDS: TAMSULOSIN 0.4 MG CAP.SR.24H PO SCH (08:40)
[2021-03-02 10:43] LABS: EOSINOPHILS % (MANUAL) 2 % (0-4); LYMPHOCYTES % (MANUAL) 11 % (16-48); MONOCYTES % (MANUAL) 16 % (0-11.0); NEUTROPHILS % (MANUAL) 71 (42-76)
[2021-03-02] MEDS: MAG HYDROX/AL HYDROX/SIMETH 30 ML UDC PO PRN (11:48)
[2021-03-02 16:32] VITALS: BP 165/62
[2021-03-02] MEDS: HYDROCODONE/APAP 5/325MG TABLET PO PRN ×2 (17:15→21:27)
--- NOTE | 2021-03-02 19:00 | NUR ---
MS RN CLOSING NOTE RECEIVED PATIENT ON BED, ALERT AND ORIENTED X 3. ABLE TO MAKE NEEDS KNOWN. PATIENT DENIES PAIN AT THIS TIME. PATIENT ON ROOM AIR WITH EQUAL AND UNLABORED BREATHING. WITH NO SIGNS OF RESPIRATORY DISTRESS. WITH RIGHT FOREARM IV ACCESS G22, ON SALINE LOCK, PATENT AND INTACT. MAINTAINED ON MODERATE TO HIGH BACK REST. CALL LIGHT WITHIN REACH AT ALL TIMES. SAFETY PRECAUTIONS MAINTAINED WITH BED LOCKED AND AT LOWEST POSITION. WILL ENDORSE PATIENT TO NEXT SHIFT FOR CONTINUITY OF CARE.
--- NOTE | 2021-03-02 19:34 | NUR ---
MS RN NOTES PATIENT IN BED. A/OX3. NO S/S OF APPARENT DISTRESS. NO C/O PAIN AT THIS TIME. NO FLUIDS RUNNING AT THIS TIME. CLARKE CATHETER DRAINING CLEAR, DARK YELLOW URINE. SAFETY IN PLACE. WILL CONTINUE TO MONITOR.
[2021-03-02 20:00] VITALS: BP 162/81
--- NOTE | 2021-03-02 21:27 | NUR ---
MS RN NOTES PATIENT C/O 7/10 PAIN. GIVEN NORCO-5/325 PRN. WILL REASSESS AND CONTINUE TO MONITOR.
--- NOTE | 2021-03-02 22:00 | NUR ---
MS RN NOTES PATIENT BP 151/87 UPON RE-CHECKED -- AFTER PAIN SUBSIDED. WILL CONTINUE TO MONITOR.
--- NOTE | 2021-03-03 06:50 | NUR ---
PATIENT IN BED WITH EYES CLOSED, EASY TO AROUSE. A/OX3-4, SERIES OF CONFUSION. NO S/S OF APPARENT DISTRESS. NO C/O PAIN AT THIS TIME. NO FLUID RUNNING AT THIS TIME. ALL NEEDS ATTENDED. SAFETY KEPT IN PLACE THE WHOLE SHIFT. NO SIGNIFICANT CHANGE SINCE LAST SHIFT. WILL ENDORSE CARE TO MORNING SHIFT RN.
--- NOTE | 2021-03-03 07:12 | NUR ---
MS RN OPENING NOTE RECEIVED PATIENT ON BED, ALERT AND ORIENTED X 3 BUT FORGETFUL. ABLE TO MAKE NEEDS KNOWN. PATIENT DENIES PAIN AT THIS TIME. PATIENT ON ROOM AIR WITH EQUAL AND UNLABORED BREATHING. WITH NO SIGNS OF RESPIRATORY DISTRESS. WITH RIGHT FOREARM IV ACCESS G20, ON SALINE LOCK, PATENT AND INTACT. WITH CLARKE CATHETER TO URINE BAG WITH YELLOWISH URINE DRAINING WELL. MAINTAINED ON MODERATE TO HIGH BACK REST. CALL LIGHT WITHIN REACH AT ALL TIMES. SAFETY PRECAUTIONS MAINTAINED WITH BED LOCKED AND AT LOWEST POSITION. WILL CONTINUE TO MONITOR.
[2021-03-03 08:00] VITALS: BP 168/82
[2021-03-03] MEDS: AMLODIPINE BESYLATE 10 MG TABLET PO SCH (08:58)
[2021-03-03] MEDS: TAMSULOSIN 0.4 MG CAP.SR.24H PO SCH (08:58)
--- NOTE | 2021-03-03 10:15 | NUR ---
MS RN NOTE PATIENT SEEN BY DR. EVANS WITH ORDER TO REMOVE CLARKE CATHETER AND OBSERVE FOR SELF VOIDING VS NEED FOR CONTINUITY OF CATHETER. CLARKE CATHETER REMOVED ORDERED. PROCEDURE TOLERATED WELL. PATIENT HEALTH TEACHING DONE REGARDING URINARY RETENTION. WILL CONTINUE TO MONITOR PATIENT.
[2021-03-03 16:00] VITALS: BP 141/71
[2021-03-03] MEDS: MAG HYDROX/AL HYDROX/SIMETH 30 ML UDC PO PRN (18:34)
--- NOTE | 2021-03-03 18:48 | NUR ---
MS RN CLOSING NOTE RECEIVED PATIENT ON BED, ALERT AND ORIENTED X 3 BUT FORGETFUL AT TIMES. ABLE TO MAKE NEEDS KNOWN. PATIENT DENIES PAIN AT THIS TIME. PATIENT ON ROOM AIR WITH EQUAL AND UNLABORED BREATHING. WITH NO SIGNS OF RESPIRATORY DISTRESS. WITH RIGHT FOREARM IV ACCESS G22, ON SALINE LOCK, PATENT AND INTACT. PATIENT OBSERVED FOR VOIDING, PATIENT HAD VOIDED 3X SINCE CLARKE CATHETER REMOVED THIS MORNING. MAINTAINED ON MODERATE TO HIGH BACK REST. CALL LIGHT WITHIN REACH AT ALL TIMES. SAFETY PRECAUTIONS MAINTAINED WITH BED LOCKED AND AT LOWEST POSITION. WILL ENDORSE PATIENT TO NEXT SHIFT FOR CONTINUITY OF CARE.
[2021-03-03 18:50] LABS: CALCIUM, SERUM 7.9 mg/dL (8.5-10.1); CARBON DIOXIDE 23 mmol/L (21-32); CHLORIDE 112 mmol/L (98-107); CREATININE 1.5 mg/dL (0.6-1.3); GLUCOSE 117 mg/dL (74-106); POTASSIUM 4.8 mmol/L (3.5-5.1); SODIUM SERUM 144 mmol/L (136-145); UREA NITROGEN, BLOOD 30 mg/dL (7-18)
[2021-03-03 19:03] LABS: BASOPHILS % (AUTO) 0.2 % (0.0-2.0); HEMOGLOBIN 10.5 g/dL (13.5-17.5); LYMPHOCYTES # (AUTO) 0.8 K/uL (0.8-4.8); MEAN CORPUSCULAR HGB CONC 34 g/dl (31.0-36.0); MONOCYTES # (AUTO) 1.2 K/uL (0.1-1.30); NEUTROPHILS # (AUTO) 4.8 K/uL (1.8-8.9); WHITE BLOOD COUNT (AUTO) 6.9 K/uL (4.3-11.0)
[2021-03-03 19:07] LABS: EOSINOPHILS % (AUTO) 1.8 % (0.0-6.0); HEMATOCRIT 31 % (39-51); LYMPHOCYTES % (AUTO) 11.7 % (20.0-44.0); MEAN CORPUSCULAR VOLUME 98 fL (80-96); MONOCYTES % (AUTO) 17.3 % (2.0-12.0); PLATELET COUNT (AUTO) 87 K/uL (150-450); RED BLOOD CELL COUNT(AUTO) 3.18 MIL/uL (4.5-6.0)
--- NOTE | 2021-03-03 19:38 | NUR ---
MS RN NOTES RECEIVED PATIENT IN ROOM. A/OX3, FORGETFUL. NO S/S OF APPARENT DISTRESS. NO C/O PAIN AT THIS TIME. NO FLUIDS RUNNING AT THIS TIME. NEEDS ATTENDED. SAFETY IN PLACE. WILL CONTINUE TO MONITOR.
[2021-03-03 20:00] VITALS: BP 151/72
[2021-03-03 21:05] LABS: LYMPHOCYTES % (MANUAL) 15 % (16-48); MONOCYTES % (MANUAL) 15 % (0-11.0); NEUTROPHILS % (MANUAL) 70 (42-76)
--- NOTE | 2021-03-04 06:21 | NUR ---
MS RN CLOSING NOTE PATIENT IN BED WITH EYES CLOSED, EASY TO AROUSE. A/OX3, SERIES OF FORGETFULNESS. NO S/S OF APPARENT DISTRESS. NO C/O PAIN AT THIS TIME. SAFETY KEPT IN PLACE THE WHOLE SHIFT: BED IN LOWEST, LOCKED POSITION; CALL LIGHT WITHIN REACH. NO SIGNIFICANT CHANGE SINCE LAST SHIFT. WILL ENDORSE CARE TO MORNING SHIFT RN.
--- NOTE | 2021-03-04 07:05 | NUR ---
MS RN OPENING NOTE RECEIVED PATIENT ON BED ASLEEP BUT EASILY WAKES UP, ALERT AND ORIENTED X 3 BUT FORGETFUL. ABLE TO MAKE NEEDS KNOWN. PATIENT DENIES PAIN AT THIS TIME. PATIENT ON ROOM AIR WITH EQUAL AND UNLABORED BREATHING. WITH NO SIGNS OF RESPIRATORY DISTRESS. WITH RIGHT FOREARM IV ACCESS G20, ON SALINE LOCK, PATENT AND INTACT. WITH CLARKE CATHETER TO URINE BAG WITH YELLOWISH URINE DRAINING WELL. MAINTAINED ON MODERATE TO HIGH BACK REST. CALL LIGHT WITHIN REACH AT ALL TIMES. SAFETY PRECAUTIONS MAINTAINED WITH BED LOCKED AND AT LOWEST POSITION. WILL CONTINUE TO MONITOR.
[2021-03-04] MEDS ORDERED: TAMS-12 PO (07:35)
[2021-03-04 08:12] VITALS: BP 146/66
[2021-03-04 08:36] VITALS: BP 146/66
[2021-03-04] MEDS: TAMSULOSIN 0.4 MG CAP.SR.24H PO SCH (08:36)
[2021-03-04] MEDS: AMLODIPINE BESYLATE 10 MG TABLET PO SCH (08:36)
--- NOTE | 2021-03-04 08:50 | NUR ---
MS RN NOTE PATIENT SEEN BY DR. EVANS WITH ORDERS FOR DISCHARGE. PATIENT AWARE. HEALTH TEACHING DONE REGARDING DISCHARGE AND MD ORDERS INCLUDING DISEASE PROCESS AND MANAGEMENT, FALL PREVENTION AND INFECTION CONTROLL. VERBALIZED UNDERSTANDING AND APPRECIATION. WILL CONTINUE TO MONITOR PATIENT.
--- NOTE | 2021-03-04 13:00 | NUR ---
MS RN NOTE PATIENT DISCHARGED ORDERED, IN STABLE CONDITION. IV ACCESS AND ID BAND REMOVED. PROCEDURE TOLERATED WELL. PATIENT ACCOMPANIED TO THE LOBBY ON A WHEELCHAIR AND PICKED UP BY SON VIA PRIVATE CAR. ENDORSED ACCORDINGLY.
== END 2021-03-04 13:10 | disposition home health service (06) | DRG 228 ==
LOC: ER 12:35 → MED 16:46
PROVIDERS: ADMIT Internal Medicine; ATTEND Family Medicine
PROC: 0YU60JZ Supplement Left Inguinal Region with Synthetic Substitute, Open Approach (ICD-10-PCS; principal; 2021-02-26)
PROC: 05HB33Z Insertion of Infusion Device into Right Basilic Vein, Percutaneous Approach (ICD-10-PCS; 2021-02-27)
DX: K40.30 Unilateral inguinal hernia, with obstruction, without gangrene, not specified as recurrent (principal); N17.0 Acute kidney failure with tubular necrosis; I13.0 Hypertensive heart and chronic kidney disease with heart failure and stage 1 through stage 4 chronic kidney disease, or unspecified chronic kidney disease; I50.9 Heart failure, unspecified; D63.8 Anemia in other chronic diseases classified elsewhere; J44.9 Chronic obstructive pulmonary disease, unspecified; N18.9 Chronic kidney disease, unspecified; Z20.822 Contact with and (suspected) exposure to COVID-19; Z85.05 Personal history of malignant neoplasm of liver; Z85.038 Personal history of other malignant neoplasm of large intestine; Z90.49 Acquired absence of other specified parts of digestive tract; Z87.891 Personal history of nicotine dependence; Z79.899 Other long term (current) drug therapy; K59.00 Constipation, unspecified; D72.819 Decreased white blood cell count, unspecified; N40.1 Benign prostatic hyperplasia with lower urinary tract symptoms; R33.8 Other retention of urine; N50.89 Other specified disorders of the male genital organs
CPT/HCPCS: 36410; 36415; 71045-TC; 76856-TC; 80048-TC; 80053-TC; 80061-TC; 80076-TC; 81001; 83690-TC; 83735-TC; 84100-TC; 85025-TC; 85610-TC; 85730-TC; 86850-TC; 87081-TC; 88302-TC; A6209; C1781; G0378; J0360; J2250; J2405; J2543; J2704; J2765; J3010; J3490; J7030; J7040; J7050; J7060

== ENCOUNTER 2021-03-13 12:00 | Inpatient (IN) | payer MEDICARE, OTHER ==
[~2021-03-13] VITALS: Ht 167.6 cm; Wt 54.9 kg
[~2021-03-13 12:00] MED LIST changes: -BISA-79 PO; -DIPH1TAB PO; -IBUP-1953 PO; -LEVO500T90 PO; -VITA1TAB56 PO
--- NOTE | 2021-03-13 12:10 | NUR ---
BIB [facility] 102 FROM HOME,LOW BACK PAIN AFTER A GLF BECAUSE HE WAS DIZZY AND WEAK. PATIENT A/OX2, WITH EPISODES OF CONFUSION. PATIENT'S SPO2 85% ON ROOM AIR, PLACED ON 3LPM VIA NC WITH SPO2 95%. NEEDS ATTENDED.
--- NOTE | 2021-03-13 12:15 | NUR ---
IV LINE ESTABLISHED, BLOOD DRAWN AND SENT TO LAB.
--- NOTE | 2021-03-13 12:24 | NUR ---
MOVE SHEET SUBMITTED AND CALLED FOR TELE BED.
[2021-03-13] MEDS ORDERED: FURO40TA5 PO (12:30)
[2021-03-13] MEDS ORDERED: TAMS-12 PO (12:30)
[2021-03-13] MEDS ORDERED: STIVARGA PO (12:30)
[2021-03-13] MEDS ORDERED: IV NS 0.9% 1,000 ML BAG IV ONE ×2 (12:30→13:00)
[2021-03-13 12:35] LABS: BASOPHILS % (AUTO) 0.4 % (0.0-2.0); EOSINOPHILS % (AUTO) 0.3 % (0.0-6.0); HEMATOCRIT 31 % (39-51); HEMOGLOBIN 10.4 g/dL (13.5-17.5); LYMPHOCYTES # (AUTO) 0.5 K/uL (0.8-4.8); LYMPHOCYTES % (AUTO) 22.9 % (20.0-44.0); MEAN CORPUSCULAR HGB CONC 34 g/dl (31.0-36.0); MEAN CORPUSCULAR VOLUME 96 fL (80-96); MONOCYTES # (AUTO) 0.4 K/uL (0.1-1.30); NEUTROPHILS # (AUTO) 1.3 K/uL (1.8-8.9); NEUTROPHILS % (AUTO) 59.4 % (43.0-81.0); PLATELET COUNT (AUTO) 72 K/uL (150-450); WHITE BLOOD COUNT (AUTO) 2.1 K/uL (4.3-11.0)
[2021-03-13 12:42] LABS: CALCIUM, SERUM 8.4 mg/dL (8.5-10.1); CARBON DIOXIDE 25 mmol/L (21-32); CHLORIDE 101 mmol/L (98-107); CREATININE 2.8 mg/dL (0.6-1.3); GLUCOSE 141 mg/dL (74-106); POTASSIUM 5.6 mmol/L (3.5-5.1); SODIUM SERUM 137 mmol/L (136-145); UREA NITROGEN, BLOOD 75 mg/dL (7-18)
[2021-03-13 12:56] LABS: ALANINE AMINOTRANSFERASE 73 U/L (12-78); ALBUMIN 3.1 g/dL (3.4-5.0); ALKALINE PHOSPHATASE 68 U/L (46-116); ASPARTATE AMINOTRANSFERASE 107 U/L (15-37); BILIRUBIN,DIRECT 0.2 mg/dL (0.0-0.2); BILIRUBIN,TOTAL 0.6 mg/dL (0.2-1.0); TOTAL PROTEIN, SERUM 7.9 g/dL (6.4-8.2)
[2021-03-13] MEDS ORDERED: VANCOMYCIN 1 GM in IV D5W 250 ML IV ONE (13:00)
[2021-03-13] MEDS ORDERED: PIPERACILLIN /TAZOBACTAM 3.375 G in IV D5W 50 ML IV ONE (13:00)
[2021-03-13 13:04] LABS: D-DIMER 26.57 mg/L(FEU (0.17-0.50)
--- NOTE | 2021-03-13 13:20 | NUR ---
ASKED FOR CM TO CALL US BACK SINCE LABS HAVE RESOLVED.
--- NOTE | 2021-03-13 13:50 | NUR ---
COVID SWAB SENT.
--- NOTE | 2021-03-13 14:55 | NUR ---
SPOKE TO [facility], CLINICALS PROVIDED. WILL CALL BACK FOR POSSIBLE AUTH.
--- NOTE | 2021-03-13 15:00 | NUR ---
ADMITTED GOT AUTH FOR PT TO STAY.
[2021-03-13] MEDS ORDERED: FUROSEMIDE 40 MG/4 ML VIAL IV ONE (15:30)
[2021-03-13] MEDS ORDERED: INSULIN REGULAR, HUMAN 100 UNIT/ML 10 ML VIAL IV ONE (15:30)
[2021-03-13] MEDS ORDERED: CALCIUM CHLORIDE 1,000 MG/10 ML DISP.SYRIN IV ONE (15:30)
[2021-03-13] MEDS ORDERED: DEXTROSE 50%-WATER 50 ML DISP.SYRIN IV ONE (15:30)
--- NOTE | 2021-03-13 15:41 | NUR ---
GOT BED 313-2
[2021-03-13 15:44] LABS: BAND % (MANUAL) 3 % (0.0-5.0); LYMPHOCYTES % (MANUAL) 22 % (16-48); NEUTROPHILS % (MANUAL) 60 (42-76)
[2021-03-13 15:45] LABS: MONOCYTES % (MANUAL) 15 % (0-11.0)
[2021-03-13] MEDS ORDERED: CALCIUM CHLORIDE 1,000 MG/10 ML DISP.SYRIN ONE (15:53)
[2021-03-13] MEDS ORDERED: FUROSEMIDE 20 MG/2 ML VIAL ONE (15:53)
[2021-03-13] MEDS ORDERED: DEXTROSE 50%-WATER 50 ML DISP.SYRIN ONE (15:53)
[2021-03-13] MEDS ORDERED: INSULIN REGULAR, HUMAN 100 UNIT/ML 10 ML VIAL ONE (15:53)
[2021-03-13] MEDS ORDERED: HEPARIN INFUSION/D5W 500 ML IV PRN (16:00)
[2021-03-13] MEDS ORDERED: ACETAMINOPHEN 325 MG TABLET PO PRN (16:00)
[2021-03-13] MEDS ORDERED: ONDANSETRON HCL/PF 4 MG/2 ML VIAL IVP PRN (16:00)
--- NOTE | 2021-03-13 16:00 | NUR ---
PATIENT WENT TO RADIOLOGY FOR VQ SCAN
--- NOTE | 2021-03-13 16:30 | NUR ---
REPORT GIVEN TO AMANDA SALDIVAR FOR SOFIE.
--- NOTE | 2021-03-13 17:10 | NUR ---
PATIENT CAME BACK FROM VQ SCAN.
--- NOTE | 2021-03-13 18:00 | NUR ---
PATIENT TRANSFERRED TO TELE FLOOR, IN STABLE CONDITION. NO DISTRESS NOTED. PATIENT ON 3LPM VIA NC WITH SPO2 OF 95%. ENDORSED TO GAB SALDIVAR.
--- NOTE | 2021-03-13 18:00 | NUR ---
PT. BROUGHT UP FROM ER,MADE COMFORTABLE. HOOKED UP TO TELE SR RATE OF 82.NO COMPLAINTS OFFERED,ON O2.VS STABLE.SIDE RAILS UP.
[2021-03-13 18:30] VITALS: BP 132/58
--- NOTE | 2021-03-13 18:44 | NUR ---
HEPARIN DRIP STARTED AT 1000 UNITS,20 ML PER HR. BASED ON ER PTT.TANYA WOOD CASKET ASSEMBLER HERE AND AWARE TO ENTER HOME MEDS.
--- NOTE | 2021-03-13 19:10 | NUR ---
CLEANER AND POLISHER OPENING NOTES: RECEIVED PATIENT IN BED, AWAKE, A/O X4. NO S/S OF DISTRESS NOTED. NO COMPLAIN OF PAIN. CALL LIGHT WITHIN REACH. BED IN LOWEST AND LOCKED POSITION. INSTRUCTED PATIENT TO CALL FOR ANY ASSISTANCE, PATIENT VERBALIZED UNDERSTANDING. BEDREST FOR NOW, RODRIGO MOON MADE AWARE. USES URINAL AT THE BEDSIDE. ON HEPARIN DRIP AT 20ML/HOUR RUNNING.
[2021-03-13] MEDS ORDERED: MISCELLANEOUS MED 1 EA EA XX ONE ×2 (19:30)
[2021-03-13 20:00] VITALS: BP 126/56
[2021-03-13 21:27] LABS: CALCIUM, SERUM 8.7 mg/dL (8.5-10.1); CARBON DIOXIDE 24 mmol/L (21-32); CHLORIDE 103 mmol/L (98-107); CREATININE 2.6 mg/dL (0.6-1.3); GLUCOSE 113 mg/dL (74-106); POTASSIUM 4.7 mmol/L (3.5-5.1); SODIUM SERUM 138 mmol/L (136-145); UREA NITROGEN, BLOOD 64 mg/dL (7-18)
--- NOTE | 2021-03-13 21:55 | NUR ---
BLOOD SUGAR CHECKED AT 2113, 117.
--- NOTE | 2021-03-13 23:32 | NUR ---
PATIENT'S SON BROUGHT IN THE HOME MED-STIVARGA WITH INSTRUCTIONS ON IT EARLIER, AND KEPT IN THE LOCKED DEPOSIT IN THE NURSING STATION CHARGE NURSE AWARE, WILL SEND TO THE PHARMACY IN AM, WILL ENDORSE TO THE NEXT SHIFT RN.
[2021-03-14] VITALS: BP 144/71
--- NOTE | 2021-03-14 02:10 | NUR ---
CHARGE NURSE RECEIVED THE PTT [id number]. PER PROTOCOL, HEPARIN HELD AT 0154, FOR ONE HOUR. NEXT PTT DRAW WILL BE AT 0900, WILL ENDORSE TO THE NEXT SHIFT RN.
--- NOTE | 2021-03-14 03:08 | NUR ---
HEPARIN DRIP RESUMED AT 0254 AT 17ML/HOUR OR 850 UNITS PER HOUR. NEXT PTT DRAW AT 0900.
[2021-03-14 04:00] VITALS: BP 131/52
[2021-03-14 04:57] LABS: BILIRUBIN,URINE NEGATIVE (NEGATIVE); COLOR,URINE YELLOW (YELLOW); LEUKOCYTE ESTERASE ,URINE NEGATIVE (NEGATIVE); NITRITE, URINE NEGATIVE (NEGATIVE); PROTEIN,URINE NEGATIVE (NEGATIVE); UGLUCOSE NEGATIVE (NEGATIVE); UROBILINOGEN,URINE 0.2 EU/dL (0.2)
--- NOTE | 2021-03-14 06:24 | NUR ---
ENGINEERING PRODUCTION WORKER CLOSING NOTES: PATIENT IN BED, AWAKE, A/O X4. NO S/S OF DISTRESS NOTED. NO COMPLAIN OF PAIN. CALL LIGHT WITHIN REACH. BED ALARM ON. BED IN LOWEST AND LOCKED POSITION. HOB ELEVATED AT ALL TIMES. WITH HEPARIN DRIP AT 17ML/HOUR. NO BLEEDING NOTED. RESTED THROUGHOUT THE NIGHT.
--- NOTE | 2021-03-14 07:35 | NUR ---
FAMILY COUNSELOR NOTES RECEIVED PATIENT IN BED, ASLEEP, EASILY AWAKEN BY VERBAL AND TACTILE STIMULI, ON ROOM AIR TOLERATING WELL, NO SOB NOTED. ON EXTERNAL MONITOR SHOWING SR HR AT 68 BPM. IV ACCESS ON RAC, PATENT AND INTACT, NO REDNESS, NO INFILTRATION NOTED. , ONGOING HEPARIN DRIP AT 850 UNITS/HR, NO S/SX OF BLEEDING NOTED AT THIS TIME SAFETY PRECAUTIONS OBSERVED: BED ON LOWEST LOCKED POSITION, SIDE RAILS UP X 2, CALL LIGHT WITHIN EASY REACH, WILL CONTINUE TO MONITOR ACCORDINGLY.
[2021-03-14] MEDS ORDERED: TAMSULOSIN 0.4 MG CAP.SR.24H PO SCH (09:00)
[2021-03-14 09:31] LABS: BASOPHILS % (AUTO) 0.5 % (0.0-2.0); HEMATOCRIT 31 % (39-51); HEMOGLOBIN 10.3 g/dL (13.5-17.5); LYMPHOCYTES # (AUTO) 0.4 K/uL (0.8-4.8); LYMPHOCYTES % (AUTO) 17.1 % (20.0-44.0); MEAN CORPUSCULAR HGB CONC 33 g/dl (31.0-36.0); MEAN CORPUSCULAR VOLUME 96 fL (80-96); MONOCYTES # (AUTO) 0.3 K/uL (0.1-1.30); MONOCYTES % (AUTO) 12.1 % (2.0-12.0); NEUTROPHILS # (AUTO) 1.7 K/uL (1.8-8.9); NEUTROPHILS % (AUTO) 68.3 % (43.0-81.0); PLATELET COUNT (AUTO) 86 K/uL (150-450); RED BLOOD CELL COUNT(AUTO) 3.23 MIL/uL (4.5-6.0); WHITE BLOOD COUNT (AUTO) 2.5 K/uL (4.3-11.0)
--- NOTE | 2021-03-14 09:39 | NUR ---
WOUND CARE CONSULT: PT NOTED TO HAVE DISCOLORATION AND SWELLING TO LEFT GROIN AREA WITH DRESSING IN PLACE FROM PROCEDURE. PT IS INCONTINENT AT TIMES. RECOMMENDATIONS MADE FOR SKIN PROTECTION. DISCUSSED WITH NURSING STAFF. MD IN AGREEMENT WITH PLAN OF CARE.
--- NOTE | 2021-03-14 09:41 | NUR ---
RN NOTES PATIENT'S STIVARGA (OWN STOCKS OF MEDICATION) FORWARDED TO PHARMACY. STOCKS RECEIVED BY RICARDO.
--- NOTE | 2021-03-14 09:49 | NUR ---
JANNA NOTES DISCONTINUED HEPARIN PER MD ORDER. NO S/SX OF BLEEDING NOTED AT THIS TIME. Addendum: 03/14/21 at 1100 by KALLI STOCK RN REMAINING 230 ML OF HEPARIN DISCARDED PER SOP.
[2021-03-14 09:54] LABS: CALCIUM, SERUM 8.4 mg/dL (8.5-10.1); CARBON DIOXIDE 25 mmol/L (21-32); CHLORIDE 100 mmol/L (98-107); CREATININE 2.3 mg/dL (0.6-1.3); GLUCOSE 142 mg/dL (74-106); MAGNESIUM 2.4 mg/dL (1.8-2.4); PHOSPHORUS 4.2 mg/dL (2.5-4.9); POTASSIUM 4.5 mmol/L (3.5-5.1); SODIUM SERUM 135 mmol/L (136-145); UREA NITROGEN, BLOOD 62 mg/dL (7-18)
[2021-03-14 09:59] LABS: CHOLESTEROL 124 mg/dL (<200); HDL CHOLESTEROL 35 mg/dL (40-60); LDL 72 mg/dL (0-99); TRIGLYCERIDES 78 mg/dL (30-150)
[2021-03-14] MEDS ORDERED: Z GUARD REMEDY 2 OZ OINT TP PRN (10:00)
--- NOTE | 2021-03-14 10:44 | NUR ---
RN NOTES BLADDER SCAN DONE, URINE VOLUME 150 ML.
[2021-03-14] MEDS: Z GUARD REMEDY 2 OZ OINT TP SCH (12:04)
[2021-03-14 16:00] VITALS: BP_SYST 120; BP_SYST 88; BP_DIAS 50; BP_DIAS 57
[2021-03-14] MEDS: APIXABAN 2.5 MG TABLET PO SCH (17:44)
--- NOTE | 2021-03-14 18:39 | NUR ---
MS RN CLOSING NOTES PATIENT IN BED, ASLEEP, EASILY AWAKEN BY VERBAL AND TACTILE STIMULI, ON ROOM AIR TOLERATING WELL, NO SOB NOTED. IV ACCESS ON RAC, PATENT AND INTACT, NO REDNESS, NO INFILTRATION NOTED. NO S/SX OF BLEEDING NOTED AT THIS TIME SAFETY PRECAUTIONS OBSERVED AND MAINTAINED DURING THE SHIFT: BED ON LOWEST LOCKED POSITION, SIDE RAILS UP X 2, CALL LIGHT WITHIN EASY REACH, ALL NEEDS ATTENDED. WILL ENDORSE TO ONCOMING SHIFT FOR SOFIE.
[2021-03-14 20:00] VITALS: BP 124/64
--- NOTE | 2021-03-15 05:25 | NUR ---
MS RN CLOSING NOTES: PATIENT IN BED, ASLEEP, EASILY AROUSABLE. NO S/S OF DISTRESS NOTED. CALL LIGHT WITHIN REACH. BED IN LOWEST AND LOCKED POSITION. RESTED THROUGHOUT THE NIGHT. HEELS OFFLOADED. TURNED AND REPOSITIONED Q2 HOURS. A/O X4.
--- NOTE | 2021-03-15 07:15 | NUR ---
MS RN NOTES PATIENT IN BED RESTING, AWAKE AND VERBALLY RESPONSIVE. A/O X3, ABLE TO MAKE NEEDS KNOWN. BREATHING EVEN AND UNLABORED, ON O2 VIA NC AT 3LPM, NO SOB NOTED. IV ACCESS ON RAC, PATENT AND INTACT. NO S/SX OF BLEEDING NOTED AT THIS TIME. SAFETY PRECAUTIONS IN PLACE: BED ON LOWEST LOCKED POSITION, SIDE RAILS UP X 2, CALL LIGHT WITHIN EASY REACH. WILL CONTINUE TO MONITOR.
[2021-03-15 08:00] VITALS: BP 125/51
--- NOTE | 2021-03-15 08:16 | NUR ---
RN NOTES PATIENT WAS ENCOURAGED TO EAT AND ASSISTED W/ FEEDING NEEDED.
[2021-03-15] MEDS: Z GUARD REMEDY 2 OZ OINT TP SCH (09:10)
[2021-03-15] MEDS: APIXABAN 2.5 MG TABLET PO SCH ×2 (09:46→16:49)
[2021-03-15 11:22] LABS: BASOPHILS % (AUTO) 0.2 % (0.0-2.0); EOSINOPHILS % (AUTO) 1.8 % (0.0-6.0); HEMATOCRIT 31 % (39-51); HEMOGLOBIN 10.4 g/dL (13.5-17.5); LYMPHOCYTES # (AUTO) 0.5 K/uL (0.8-4.8); MEAN CORPUSCULAR HGB CONC 34 g/dl (31.0-36.0); MEAN CORPUSCULAR VOLUME 96 fL (80-96); MONOCYTES # (AUTO) 0.4 K/uL (0.1-1.30); MONOCYTES % (AUTO) 14.5 % (2.0-12.0); NEUTROPHILS # (AUTO) 1.7 K/uL (1.8-8.9); NEUTROPHILS % (AUTO) 65.5 % (43.0-81.0); PLATELET COUNT (AUTO) 91 K/uL (150-450); RED BLOOD CELL COUNT(AUTO) 3.22 MIL/uL (4.5-6.0); WHITE BLOOD COUNT (AUTO) 2.5 K/uL (4.3-11.0)
[2021-03-15 11:34] LABS: CALCIUM, SERUM 8.2 mg/dL (8.5-10.1); CARBON DIOXIDE 23 mmol/L (21-32); CHLORIDE 103 mmol/L (98-107); CREATININE 2.1 mg/dL (0.6-1.3); GLUCOSE 156 mg/dL (74-106); POTASSIUM 4.6 mmol/L (3.5-5.1); SODIUM SERUM 136 mmol/L (136-145); UREA NITROGEN, BLOOD 58 mg/dL (7-18)
--- NOTE | 2021-03-15 12:10 | NUR ---
RN NOTES PATIENT WAS SEEN BY DR. NOYOLA TODAY W/ ORDERS NOTED.
[2021-03-15 12:20] LABS: MAGNESIUM 2.8 mg/dL (1.8-2.4); PHOSPHORUS 3.4 mg/dL (2.5-4.9)
[2021-03-15] MEDS ORDERED: IV NS 0.9% 1,000 ML IV ONE (13:00)
[2021-03-15 16:00] VITALS: BP 131/73
[2021-03-15] MEDS: TAMSULOSIN 0.4 MG CAP.SR.24H PO SCH (17:17)
--- NOTE | 2021-03-15 18:50 | NUR ---
RN NOTES PATIENT SEEN IN BED RESTING, AWAKE AND VERBALLY RESPONSIVE. CONTINUES ON O2 VIA NC, BREATHING NON-LABORED. IV LINE INTACT AND PATENT. ABLE TO USE URINAL AND DIAPER TODAY; NO COMPLAINT OF BLADDER DISTENTION. BLADDER SCAN DONE; RESIDUAL LESS THAN 50CC. SAFETY MEASURES MAINTAINED. WILL ENDORSE TO BOW MACHINE OPERATOR RN FOR SOFIE.
[2021-03-15 20:00] VITALS: BP 125/65
--- NOTE | 2021-03-16 00:56 | NUR ---
MS/TELE/RN PATIENT IS SLEEPING, APPEAR COMFORTABLE, NO SIGNS OF DISTRESS NOTED, CALL LIGHT IN REACH, WILL CONTINUE TO MONITOR.
--- NOTE | 2021-03-16 06:13 | NUR ---
MS/TELE/RN PATIENT IS STILL SLEEPING AT THIS TIME, APPEAR COMFORTABLE, NO SIGNS OF DISTRESS NOTED, CALL LIGHT IN REACH, ALL NEEDS ATTENDED AT THIS TIME, WILL CONTINUE TO MONITOR.
--- NOTE | 2021-03-16 07:12 | NUR ---
MS RN OPENING NOTE PT ASLEEP ON BED BUT WAKES UP TO CALL, A/O X2-3 BUT FORGETFUL, ABLE TO VERBALIZE ALL NEEDS. PATIENT DENIES PAIN OR DISCOMFORT AT THIS TIME. WITH IV ACCESS ON RIGHT AC G 18 PATENT AND INTACT. PT USES BEDSIDE COMMODE WITH TRANSFER ASSIST, INSTRUCTED TO CALL FOR ASSISTANCE. FALL PRECAUTIONS DONE. SAFETY MEASURES IN PLACE, BED IN LOWEST LOCKED AND AT LOWEST POSITION, SIDE RAILS UP X2, CALL LIGHT AND TABLE WITHIN REACH. WILL CONTINUE TO MONITOR.
[2021-03-16 08:00] VITALS: BP 114/52
[2021-03-16] MEDS: APIXABAN 2.5 MG TABLET PO SCH ×2 (08:51→18:16)
[2021-03-16] MEDS: Z GUARD REMEDY 2 OZ OINT TP SCH (11:11)
--- NOTE | 2021-03-16 12:30 | NUR ---
MS RN NOTE PATIENT SEEN BY DR. NOYOLA, WITH NO NEW ORDER AT THIS TIME.
[2021-03-16] MEDS: DOCUSATE SODIUM 100 MG CAPSULE PO SCH (13:41)
[2021-03-16] MEDS: SENNOSIDES/DOCUSATE SODIUM 1 TAB TABLET PO SCH (13:41)
[2021-03-16 14:41] LABS: BASOPHILS % (AUTO) 0.2 % (0.0-2.0); EOSINOPHILS % (AUTO) 2.1 % (0.0-6.0); HEMATOCRIT 28 % (39-51); HEMOGLOBIN 9.7 g/dL (13.5-17.5); LYMPHOCYTES # (AUTO) 0.4 K/uL (0.8-4.8); LYMPHOCYTES % (AUTO) 10.8 % (20.0-44.0); MEAN CORPUSCULAR HGB CONC 34 g/dl (31.0-36.0); MEAN CORPUSCULAR VOLUME 96 fL (80-96); MONOCYTES # (AUTO) 0.3 K/uL (0.1-1.30); MONOCYTES % (AUTO) 10.2 % (2.0-12.0); NEUTROPHILS # (AUTO) 2.5 K/uL (1.8-8.9); NEUTROPHILS % (AUTO) 76.7 % (43.0-81.0); PLATELET COUNT (AUTO) 106 K/uL (150-450); RED BLOOD CELL COUNT(AUTO) 2.96 MIL/uL (4.5-6.0); WHITE BLOOD COUNT (AUTO) 3.3 K/uL (4.3-11.0)
[2021-03-16 15:09] LABS: CARBON DIOXIDE 25 mmol/L (21-32); CHLORIDE 107 mmol/L (98-107); CREATININE 1.6 mg/dL (0.6-1.3); GLUCOSE 108 mg/dL (74-106); PHOSPHORUS 2.6 mg/dL (2.5-4.9); POTASSIUM 4.9 mmol/L (3.5-5.1); SODIUM SERUM 139 mmol/L (136-145); UREA NITROGEN, BLOOD 45 mg/dL (7-18)
[2021-03-16] MEDS ORDERED: ASPI-1169 PO (15:17)
--- NOTE | 2021-03-16 16:00 | NUR ---
MS RN NOTE SEEN BY DR. NOYOLA WITH ORDER TO DISCHARGE PATIENT. PATIENT HEALTH TEACHING DONE AND VERBALIZED UNDERSTANDING. WILL CONTINUE TO MONITOR PATIENT.
--- NOTE | 2021-03-16 17:30 | NUR ---
MS RN NOTE PATIENT'S SON CAME AN VISITED AND WAS REQUESTING TO STAY FOR TONIGHT TO HAVE PATIENT PLACED ON SNF BECAUSE HER MOTHER CANNOT TAKE CARE OF HIM YET. PUPPY SITTER ALREADY GONE FO THE DAY. DR. NOYOLA NOTIFIED AND AGREED PER FAMILY'S REQUEST.
[2021-03-16] MEDS: TAMSULOSIN 0.4 MG CAP.SR.24H PO SCH (18:12)
--- NOTE | 2021-03-16 19:00 | NUR ---
MS RN CLOSING NOTE PT ASLEEP ON BED BUT WAKES UP TO CALL, A/O X2-3 BUT FORGETFUL, ABLE TO VERBALIZE ALL NEEDS. PATIENT DENIES PAIN OR DISCOMFORT AT THIS TIME. WITH IV ACCESS ON RIGHT AC G 18 PATENT AND INTACT. PT USES BEDSIDE COMMODE WITH TRANSFER ASSIST, INSTRUCTED TO CALL FOR ASSISTANCE. FALL PRECAUTIONS DONE. SAFETY MEASURES IN PLACE, BED IN LOWEST LOCKED AND AT LOWEST POSITION, SIDE RAILS UP X2, CALL LIGHT AND TABLE WITHIN REACH. WILL ENDORSE TO NEXT SHIFT FOR CONTINUITY OF CARE.
[2021-03-16 20:00] VITALS: BP 130/67
--- NOTE | 2021-03-16 20:00 | NUR ---
RN NOTES RECEIVED PATIENT IN BED, ALERT/ORIENTED X3, ROOM AIR, PAIN WITH MOVEMENT, WITH ORDER OF ORTHOSTATIC BP, GENERALIZED WEAKNESS, KEPT SAFE, WILL CONTINUE TO MONITOR.
[2021-03-16 20:10] VITALS: BP 133/67
[2021-03-16 20:12] VITALS: BP 130/67
--- NOTE | 2021-03-16 20:12 | NUR ---
RN NOTES IN COMPLETING ORTHOSTATIC BP, PATIENT UNABLE TO STAND UP.
[2021-03-16 20:41] VITALS: BP 130/67
--- NOTE | 2021-03-17 06:31 | NUR ---
ALERT/ORIENTED X3, ROOM AIR, FORGETFUL, GENERALIZED WEAKNESS, INCARCERATED HERNIA, SCROTAL EDEMA AND REDNESS, DISCHARGE ON HOLD, FAMILY UNABLE TO CARE FOR PATIENT, REQUESTING PLACEMENT TO SNF
--- NOTE | 2021-03-17 07:10 | NUR ---
MS RN OPENING NOTE PT AWAKE ON BED A/O X2-3 BUT FORGETFUL. PATIENT ABLE TO VERBALIZE ALL NEEDS. PATIENT DENIES PAIN OR DISCOMFORT AT THIS TIME. WITH IV ACCESS ON RIGHT AC G 18 PATENT AND INTACT. WITH LEFT CHEST WALL MICHELLE CATH. PT USES BEDSIDE COMMODE WITH TRANSFER ASSIST, INSTRUCTED TO CALL FOR ASSISTANCE. FALL PRECAUTIONS ENFORCED SAFETY MEASURES IN PLACE, BED IN LOWEST LOCKED AND AT LOWEST POSITION, SIDE RAILS UP X2, CALL LIGHT AND TABLE WITHIN REACH. WILL CONTINUE TO MONITOR PATIENT.
[2021-03-17 08:00] VITALS: BP 143/95
[2021-03-17] MEDS: APIXABAN 2.5 MG TABLET PO SCH (08:47)
[2021-03-17] MEDS: DOCUSATE SODIUM 100 MG CAPSULE PO SCH (09:00)
[2021-03-17] MEDS: SENNOSIDES/DOCUSATE SODIUM 1 TAB TABLET PO SCH (09:00)
--- NOTE | 2021-03-17 09:10 | NUR ---
MS RN NOTE DINKEY MOTOR OPERATOR CAME AND UNABLE TO DRAW BLOOD. WILL RETURN LATER TO TRY AGAIN PER PILI.
--- NOTE | 2021-03-17 09:10 | NUR ---
MS RN NOTE PATIENT NOT GIVEN STOOL SOFTENER, WITH 2 BOWEL MOVEMENT TODAY SINCE 12MN. WILL CONTINUE TO MONITOR PATIENT.
--- NOTE | 2021-03-17 09:30 | NUR ---
MS RN NOTE CYTOGENETICS TECHNOLOGIST NOTIFIED OF MD ORDER REGARDING PLACEMENT TO SNF PER FAMILY'S REQUEST. WILL CONTINUE TO MONITOR PATIENT.
--- NOTE | 2021-03-17 11:00 | NUR ---
MS RN NOTE PATIENT SEEN BY DR. NOYOLA, STILL WAITING FOR PLACEMENT AT SNF PER FAMILY'S REQUEST. AWAITING UPDATE FROM DIESEL LOCOMOTIVE ENGINEER.
[2021-03-17] MEDS: Z GUARD REMEDY 2 OZ OINT TP SCH (11:53)
[2021-03-17 12:20] LABS: BASOPHILS % (AUTO) 0.3 % (0.0-2.0); EOSINOPHILS % (AUTO) 0.9 % (0.0-6.0); HEMATOCRIT 30 % (39-51); LYMPHOCYTES # (AUTO) 0.4 K/uL (0.8-4.8); LYMPHOCYTES % (AUTO) 9.9 % (20.0-44.0); MEAN CORPUSCULAR HGB CONC 33 g/dl (31.0-36.0); MEAN CORPUSCULAR VOLUME 97 fL (80-96); MONOCYTES # (AUTO) 0.4 K/uL (0.1-1.30); MONOCYTES % (AUTO) 9.8 % (2.0-12.0); NEUTROPHILS # (AUTO) 3.6 K/uL (1.8-8.9); NEUTROPHILS % (AUTO) 79.1 % (43.0-81.0); PLATELET COUNT (AUTO) 114 K/uL (150-450); RED BLOOD CELL COUNT(AUTO) 3.11 MIL/uL (4.5-6.0); WHITE BLOOD COUNT (AUTO) 4.5 K/uL (4.3-11.0)
[2021-03-17 12:31] LABS: CALCIUM, SERUM 7.7 mg/dL (8.5-10.1); CARBON DIOXIDE 25 mmol/L (21-32); CHLORIDE 107 mmol/L (98-107); CREATININE 1.7 mg/dL (0.6-1.3); GLUCOSE 132 mg/dL (74-106); MAGNESIUM 2.9 mg/dL (1.8-2.4); PHOSPHORUS 2.5 mg/dL (2.5-4.9); POTASSIUM 4.6 mmol/L (3.5-5.1); SODIUM SERUM 140 mmol/L (136-145); UREA NITROGEN, BLOOD 39 mg/dL (7-18)
--- NOTE | 2021-03-17 14:00 | NUR ---
MS RN NOTE PATIENT FOR PL[facility] PER RESIDENT IN DIAGNOSTIC RADIOLOGY. SON CIELO AWARE, PATIENT AWARE OF TRANSFER. HEALTH TEACHING REINFORCED AND VERBALIZED UNDERSTANDING AND APPRECIATION. AWAITING TRANSPORT PICK-UP AROUND 3PM. WILL CONTINUE TO MONITOR PATIENT.
--- NOTE | 2021-03-17 15:25 | NUR ---
MS RN NOTE PATIENT FOR TRANSFER TO [facility]. PATIENT ENDORSED TO JANNA DONG . IV ACCESS REMOVED AND COVERED WITH BANDAID, WITH NO SIGNS AND SYMPTOMS OF BLEEDING. PATIENT BELONGING LIST AND INSTRUCTIONS ATTACHED TO CHART AND COPY PROVIDED FOR TRANSFER. PATIENT PICKED UP BY 2 EMT PERSONNEL AND TRANSPORTED VIA GURNEY. PATIENT REMAINS MEDICALLY STABLE. ENDORSED ACCORDINGLY.
--- NOTE | 2021-03-17 16:58 | NUR ---
RN NOTE PATIENT RECEIVED VIA GURNEY, VTS WNL, ALERT AND ORIENTED X4, ON ROOM AIR, BREATHING EVEN AND UNLABORED. Addendum: 03/17/21 at 1659 by AASHISH CORDERO RN RN NOTE PATIENT RECEIVED VIA GURNEY, VTS WNL, ALERT AND ORIENTED X4, ON ROOM AIR, BREATHING EVEN AND UNLABORED. BED WHEELS LOCKS, SAFETY MEASURES OBSERVED. CALL LIGHT WITHIN REACH, WILL CONTINUE TO MONITOR
[2021-03-17] MEDS: TAMSULOSIN 0.4 MG CAP.SR.24H PO SCH (17:12)
--- NOTE | 2021-03-17 19:53 | NUR ---
CLAIM PROFESSIONAL OPENING NOTES Patient is A&Ox4. In bed resting but easy to wake. No signs of distress. Not coughing at this time. Denies any needs. Denies pain. Addendum: 03/17/21 at 6 by BHAVESH DEVI RN Correction MS not tele
[2021-03-17 20:00] VITALS: BP 120/63
--- NOTE | 2021-03-17 21:31 | NUR ---
Attempted to take orthostatic BP. Pt uncooperative. sundowning behavior. Will try again in AM. Addendum: 03/17/21 at 2306 by BHAVESH DEVI RN Wrong patient
--- NOTE | 2021-03-18 00:30 | NUR ---
Patient refused IV insertion stating "not again" and "not now" then continuing to say "i don't need it! let me sleep!" Explained risks and benefits.
[2021-03-18 04:00] VITALS: BP 133/66
--- NOTE | 2021-03-18 06:06 | NUR ---
MS RN CLOSING NOTES Patient in bed resting most of night though easy to wake. A&Ox4. No overnight events. No coughing noted. Denies SOB. O2 sat stays around 93% on RA. Asymptomatic for COVID at this time though isolation measures for possible in place.
--- NOTE | 2021-03-18 07:30 | NUR ---
MS RN OPENING NOTE PT AWAKE IN BED A/O X2-3 BUT FORGETFUL. SPEAKS TAGALOG, PATIENT ABLE TO VERBALIZE ALL NEEDS. SATTING 93% ON ROOM AIR, RESPIRATIO UNLABORED, PATIENT DENIES PAIN OR DISCOMFORT AT THIS TIME. REFUSE IV INSERTION DESPITE EXPLAINING THE NEED. WITH LEFT CHEST WALL MICHELLE CATH. PT USES BEDSIDE COMMODE WITH TRANSFER ASSIST, INSTRUCTED TO CALL FOR ASSISTANCE. FALL PRECAUTIONS ENFORCED SAFETY MEASURES IN PLACE, BED IN LOWEST LOCKED AND AT LOWEST POSITION, SIDE RAILS UP X2, CALL LIGHT AND TABLE WITHIN REACH. WILL ISOLATION PRECAUTION OBSERVED. CONTINUE TO MONITOR PATIENT.
[2021-03-18] MEDS: Z GUARD REMEDY 2 OZ OINT TP SCH (09:01)
[2021-03-18] MEDS: ASPIRIN 81 MG TAB.CHEW PO SCH (09:01)
[2021-03-18] MEDS: DOCUSATE SODIUM 100 MG CAPSULE PO SCH (09:01)
[2021-03-18] MEDS: SENNOSIDES/DOCUSATE SODIUM 1 TAB TABLET PO SCH (09:01)
--- NOTE | 2021-03-18 09:30 | NUR ---
RN NOTES DUE MEDS GIVEN
[2021-03-18 10:00] VITALS: BP_SYST 103; BP_SYST 114; BP_SYST 78; BP_DIAS 40; BP_DIAS 55; BP_DIAS 63
[2021-03-18] MEDS ORDERED: IV NS 0.9% 500 ML IV ONE (16:00)
--- NOTE | 2021-03-18 16:08 | NUR ---
RN NOTES PATIENT WITH ORDER FOR NS 500ML WIDE OPEN. INFORMED DAKOTA RICHEY PATIENT REFUSING IV INSERTION.
[2021-03-18] MEDS: TAMSULOSIN 0.4 MG CAP.SR.24H PO SCH (17:21)
--- NOTE | 2021-03-18 18:45 | NUR ---
MS RN CLOSING NOTE PT RESTING COMFORTABLY, A/O X2-3 BUT FORGETFUL. SPEAKS TAGALOG, PATIENT ABLE TO VERBALIZE ALL NEEDS. SATTING 94% ON ROOM AIR, RESPIRATION UNLABORED, PATIENT DENIES PAIN OR DISCOMFORT AT THIS TIME. REFUSE IV INSERTION DESPITE EXPLAINING THE NEED. WITH LEFT CHEST WALL MICHELLE CATH. PT USES BEDSIDE COMMODE WITH TRANSFER ASSIST, INSTRUCTED TO CALL FOR ASSISTANCE. FALL PRECAUTIONS ENFORCED SAFETY MEASURES IN PLACE, BED IN LOWEST LOCKED AND AT LOWEST POSITION, SIDE RAILS UP X2, CALL LIGHT AND TABLE WITHIN REACH. ISOLATION PRECAUTION OBSERVED. WILL ENDORSE TO NEXT SHIFT FOR SOFIE.
--- NOTE | 2021-03-18 19:55 | NUR ---
MS RN OPENING NOTE RECEIVED PT AWAKE IN BED. A/O X2-3, FORGETFUL AT TIMES. PT IS TAGALOG-SPEAKING, BUT ABLE TO VERBALIZE ALL NEEDS. PT IS STABLE ON ROOM AIR. NO SOB OR S/S OF RESPIRATORY DISTRESS NOTED. PT DENIES PAIN OR DISCOMFORT AT THIS TIME. PT REFUSED IV INSERTION DESPITE EDUCATING PT ON RISKS AND BENEFITS. PT NOTED WITH LEFT CHEST WALL MICHELLE CATH. SAFETY PRECAUTIONS MAINTAINED. BED IN LOWEST LOCKED POSITION, HOB ELEVATED, SIDE RAILS UP X2, BED ALARM ON. CALL LIGHT AND TABLE WITHIN REACH. WILL CONTINUE WITH PLAN OF CARE.
[2021-03-18 20:00] VITALS: BP 110/60
--- NOTE | 2021-03-19 06:12 | NUR ---
MS RN CLOSING NOTE PT IS IN BED WITH EYES CLOSED, AROUSABLE TO STIMULATION. A/O X2-3, FORGETFUL AT TIMES. PT IS TAGALOG-SPEAKING, BUT ABLE TO VERBALIZE ALL NEEDS. PT IS STABLE ON ROOM AIR. NO SOB OR S/S OF RESPIRATORY DISTRESS NOTED. PT DENIES PAIN OR DISCOMFORT AT THIS TIME. PT REFUSED IV INSERTION DESPITE EDUCATING PT ON RISKS AND BENEFITS. PT NOTED WITH LEFT CHEST WALL MICHELLE CATH. ALL NEEDS HAVE BEEN MET. SAFETY PRECAUTIONS MAINTAINED AT ALL TIMES. BED IN LOWEST LOCKED POSITION, HOB ELEVATED, SIDE RAILS UP X2, BED ALARM ON. CALL LIGHT AND TABLE WITHIN REACH. WILL ENDORSE TO ONCOMING NURSE FOR SOFIE.
[2021-03-19 07:24] LABS: BASOPHILS % (AUTO) 0.5 % (0.0-2.0); EOSINOPHILS % (AUTO) 1.9 % (0.0-6.0); HEMATOCRIT 29 % (39-51); HEMOGLOBIN 9.9 g/dL (13.5-17.5); LYMPHOCYTES # (AUTO) 0.6 K/uL (0.8-4.8); LYMPHOCYTES % (AUTO) 11.5 % (20.0-44.0); MEAN CORPUSCULAR HGB CONC 34 g/dl (31.0-36.0); MEAN CORPUSCULAR VOLUME 96 fL (80-96); MONOCYTES # (AUTO) 0.6 K/uL (0.1-1.30); MONOCYTES % (AUTO) 12.1 % (2.0-12.0); NEUTROPHILS # (AUTO) 3.7 K/uL (1.8-8.9); PLATELET COUNT (AUTO) 142 K/uL (150-450); RED BLOOD CELL COUNT(AUTO) 3.05 MIL/uL (4.5-6.0)
--- NOTE | 2021-03-19 07:29 | NUR ---
RN OPENING NOTES RECEIVED PT IN BED RESTING. PT A/OX2, PT HAS DIFFICULTY HEARING. PT IS TAGALOG-SPEAKING, BUT ABLE TO VERBALIZE ALL NEEDS. PT HAS NO C/O SOB, OR PAIN, PT ON RA AND TOLERATING WELL. PT CONTINUES TO REFUSE IV INSERTION. PT NOTED WITH LEFT CHEST WALL MICHELLE CATH. ALL NEEDS HAVE BEEN MET. ALL SAFETY PRECAUTIONS MAINTAINED AT ALL TIMES. BED IN LOWEST LOCKED POSITION, HOB ELEVATED, SIDE RAILS UP X2, BED ALARM ON. CALL LIGHT AND TABLE WITHIN REACH. WILL CONTINUE TO MONITOR.
[2021-03-19 07:55] LABS: CALCIUM, SERUM 7.9 mg/dL (8.5-10.1); CARBON DIOXIDE 23 mmol/L (21-32); CHLORIDE 108 mmol/L (98-107); CREATININE 1.7 mg/dL (0.6-1.3); GLUCOSE 104 mg/dL (74-106); MAGNESIUM 2.9 mg/dL (1.8-2.4); PHOSPHORUS 2.4 mg/dL (2.5-4.9); POTASSIUM 4.6 mmol/L (3.5-5.1); SODIUM SERUM 140 mmol/L (136-145); UREA NITROGEN, BLOOD 36 mg/dL (7-18)
[2021-03-19] MEDS: DOCUSATE SODIUM 100 MG CAPSULE PO SCH (08:27)
[2021-03-19] MEDS: ASPIRIN 81 MG TAB.CHEW PO SCH (08:27)
[2021-03-19] MEDS: SENNOSIDES/DOCUSATE SODIUM 1 TAB TABLET PO SCH (08:27)
[2021-03-19] MEDS: Z GUARD REMEDY 2 OZ OINT TP SCH (08:41)
--- NOTE | 2021-03-19 09:26 | NUR ---
RN NOTES; BLADDER SCAN DONE. PT HAD 62ML OF URINE IN THE BLADDER.
[2021-03-19] MEDS ORDERED: K PHOS NEUTRAL 250 MG TABLET PO ONE (10:00)
[2021-03-19] MEDS: TAMSULOSIN 0.4 MG CAP.SR.24H PO SCH (17:11)
--- NOTE | 2021-03-19 18:15 | NUR ---
RN CLOSING NOTES PT IN BED IN SIDE LYING POS. RESTING. PT A/OX2, PT HAS DIFFICULTY HEARING. PT IS TAGALOG-SPEAKING, BUT ABLE TO VERBALIZE ALL NEEDS. PCR RESULTS CAME IN. PT IS COVID +. PT HAS NO C/O SOB AND ABLE TO TOLERATE BEING ON ROOM AIR. NO C/O PAIN. PT CONTINUES TO REFUSE IV INSERTION, EXPLAINED RISKS AND BENEFITS, PT STILL DECLINES. PT NOTED WITH LEFT CHEST WALL MICHELLE CATH. ALL NEEDS HAVE BEEN MET. D/C ORDERS IN, WIHT PAPER WORK DONE. WAITING TO FIND PLACEMENT. ALL SAFETY PRECAUTIONS MAINTAINED AT ALL TIMES. BED IN LOWEST LOCKED POSITION, HOB ELEVATED, SIDE RAILS UP X2, BED ALARM ON. CALL LIGHT AND TABLE WITHIN REACH. ENDORSED TO FLOOR COVERING PRINTER RN IN STABLE CONDITION.
--- NOTE | 2021-03-19 19:40 | NUR ---
RN NOTE PT RECEIVED IN BED. CURRENTLY ON ROOM AIR SHOWING NO S/S OF RESP DISTRESS/SOB. BREATHING EVEN AND UNLABORED. PT IS A&OX2-3. SKIN INTACT. PT ON CARDIAC DIET. PT IS REFUSING IV ACCESS. LEFT CHEST WALL MICHELLE CATH NOTED. ALL SAFETY MEASURES IMPLEMENTED. CALL LIGHT WITHIN REACH. BED ALARM ON. BED LOCKED AND IN LOWEST POSITION. WILL CONTINUE TO MONITOR THROUGHOUT THE SHIFT.
[2021-03-19 20:00] VITALS: BP 142/62
[2021-03-20 04:00] VITALS: BP 136/65
--- NOTE | 2021-03-20 06:59 | NUR ---
RN NOTE NO CHANGES IN PT CONDITION DURING SHIFT. PT IS ON ROOM AIR WITH NO S/S OF RESP DISTRESS/SOB. LEFT CHEST WALL MICHELLE CATH NOTED. PT REFUSED IV ACCESS. PT KEPT CLEAN AND COMFORTABLE. ALL SAFETY MEASURES IMPLEMENTED. WILL ENDORSE TO MORNING SHIFT RN FOR SOFIE.
[2021-03-20 07:47] LABS: CALCIUM, SERUM 7.8 mg/dL (8.5-10.1); CARBON DIOXIDE 24 mmol/L (21-32); CHLORIDE 108 mmol/L (98-107); CREATININE 1.6 mg/dL (0.6-1.3); GLUCOSE 107 mg/dL (74-106); PHOSPHORUS 2.7 mg/dL (2.5-4.9); POTASSIUM 4.6 mmol/L (3.5-5.1); SODIUM SERUM 141 mmol/L (136-145); UREA NITROGEN, BLOOD 29 mg/dL (7-18)
[2021-03-20] MEDS: ASPIRIN 81 MG TAB.CHEW PO SCH (09:32)
[2021-03-20] MEDS: SENNOSIDES/DOCUSATE SODIUM 1 TAB TABLET PO SCH (09:33)
[2021-03-20] MEDS: DOCUSATE SODIUM 100 MG CAPSULE PO SCH (09:33)
[2021-03-20] MEDS: Z GUARD REMEDY 2 OZ OINT TP SCH (09:33)
[2021-03-20] MEDS: TAMSULOSIN 0.4 MG CAP.SR.24H PO SCH (09:44)
--- NOTE | 2021-03-20 12:50 | NUR ---
room air sat 86% on ambulation md aware ordered home oxygen.
--- NOTE | 2021-03-20 13:03 | NUR ---
addendum pt room air sat 98%,aboe wrong entry.cm arrange homehealth .
--- NOTE | 2021-03-20 13:25 | NUR ---
PATIENT WALKS WITH PT ON ROOM AIR NO DISTRESS,PER PATIENT." I DONT NEED OXYGEN ".SAT 94% .
--- NOTE | 2021-03-20 14:13 | NUR ---
RN NOTES PT RECEIVED SLEEPING BED. A & o X 3 , CURRENTLY ON ROOM AIR SHOWING NO S/S OF RESP DISTRESS/SOB. BREATHING EVEN AND UNLABORED. NO SOB, PT SKIN INTACT. PT ON CARDIAC DIET. LEFT CHEST WALL MICHELLE CATH NOTED. ALL SAFETY MEASURES IMPLEMENTED. CALL LIGHT WITHIN REACH. BED ALARM ON. BED LOCKED AND IN LOWEST POSITION. WILL CONTINUE TO MONITOR THROUGHOUT THE SHIFT.
--- NOTE | 2021-03-20 15:42 | NUR ---
RN NOTES PREPARING PT FOR D/C, HE REQUESTED A WARM BLANKET AND A CUP OF HOT COFFEE TO RELAX , PROVIDED WARM BLANKET AND COFFEE - EFFECTIVE PT RELAXED. FAMILY SHORTLY ARRIVED THERE AFTER TO PICKUP PT FOR D/C & TAKE TO HALF-WAY FACILITY, COMPLIANT WITH CARE, ALL NEEDS MET, NO IV TO D/C HE HAD REFUSED, NO F/C TO D/C AND SKIN INTACT, NO C/O PAIN, NO SOB AND NO LABORED BREATHING NOTED, SAFE TRANSFER FROM BED TO WHEEL CHAIR TO TRANSPORT FAMILY DRIVING PERSONAL CAR TO TAKE PT TO SNF FROM WHERE HE HAD CAME FROM AND ALL RECORDS AND DOCUMENTS GIVEN TO FAMILY MEMBER FOR FACILITY.
== END 2021-03-20 14:27 | disposition home health service (06) | DRG 640 ==
LOC: ER 12:04 → TELE 15:46 → MED 03-14 12:03 → UNDODISIN 03-17 15:20 → MEDSG1 03-17 16:40
PROVIDERS: ADMIT Nurse Practitioner Acute Care; ATTEND Nurse Practitioner Acute Care
DX: E86.0 Dehydration (principal); N17.0 Acute kidney failure with tubular necrosis; U07.1 COVID-19; E44.0 Moderate protein-calorie malnutrition; D68.59 Other primary thrombophilia; I13.0 Hypertensive heart and chronic kidney disease with heart failure and stage 1 through stage 4 chronic kidney disease, or unspecified chronic kidney disease; I50.32 Chronic diastolic (congestive) heart failure; D61.818 Other pancytopenia; E87.2 Acidosis; I95.1 Orthostatic hypotension; E87.5 Hyperkalemia; W18.30XA Fall on same level, unspecified, initial encounter; N18.9 Chronic kidney disease, unspecified; Y92.009 Unspecified place in unspecified non-institutional (private) residence as the place of occurrence of the external cause; Z79.899 Other long term (current) drug therapy; Z85.05 Personal history of malignant neoplasm of liver; G89.29 Other chronic pain; J44.9 Chronic obstructive pulmonary disease, unspecified; D72.819 Decreased white blood cell count, unspecified; I35.1 Nonrheumatic aortic (valve) insufficiency; Z98.890 Other specified postprocedural states; R09.02 Hypoxemia; Z85.038 Personal history of other malignant neoplasm of large intestine; Z91.81 History of falling; Z87.891 Personal history of nicotine dependence; Z87.448 Personal history of other diseases of urinary system
CPT/HCPCS: 36415; 71045-TC; 71250-TC; 72110-TC; 76770-TC; 78582; 80048-TC; 80061-TC; 80076-TC; 82962-TC; 83605-TC; 83735-TC; 83880; 84100-TC; 84484-TC; 85025-TC; 85378-TC; 85730-TC; 87040-TC; 87081-TC; 93307-TC; 93970-TC; 97110-TC; 97112-TC; 97116-TC; 97530-TC; A9540; A9567; C9803; G0378; J1644; J1815; J1940; J2543; J3370; J3490; J7030; J7060; U0003

== ENCOUNTER 2021-08-11 12:02 | Inpatient (IN) | payer MEDICARE, OTHER ==
[~2021-08-11] VITALS: Ht 167.6 cm; Wt 59.9 kg
[~2021-08-11 12:02] MED LIST changes: +ASPI-1169 PO; +FURO40TA5 PO; +STIVARGA PO
--- NOTE | 2021-08-11 12:02 | NUR ---
PT BIB FAMILY C/O L LOWER ABDOMINAL X 5 DAYS. PT IS AAOX3, NOT IN RESPIRATORY DISTRESS, HOOKED TO HISTOLOGY ASSISTANT, KEPT RESTED AND COMFORTABLE. WILL CONTINUE TO MONITOR.
--- NOTE | 2021-08-11 12:13 | NUR ---
called to triage,no answer
--- NOTE | 2021-08-11 12:56 | NUR ---
X RAY AT BEDSIDE
[2021-08-11] MEDS ORDERED: IV NS 0.9% 1,000 ML BAG IV ONE (13:00)
--- NOTE | 2021-08-11 13:40 | NUR ---
URINE SPECIMEN COLLECTED AND SENT TO LAB.
[2021-08-11] MEDS ORDERED: CARV6.252 PO (13:52)
[2021-08-11 14:46] LABS: WHITE BLOOD COUNT (AUTO) 5.7 K/uL (4.3-11.0)
[2021-08-11 14:53] LABS: BASOPHILS % (AUTO) 0.3 % (0.0-2.0); EOSINOPHILS % (AUTO) 2.9 % (0.0-6.0); LYMPHOCYTES # (AUTO) 0.6 K/uL (0.8-4.8); LYMPHOCYTES % (AUTO) 9.9 % (20.0-44.0); MEAN CORPUSCULAR HGB CONC 33 g/dl (31.0-36.0); MEAN CORPUSCULAR VOLUME 96 fL (80-96); MONOCYTES # (AUTO) 0.8 K/uL (0.1-1.30); MONOCYTES % (AUTO) 13.7 % (2.0-12.0); NEUTROPHILS # (AUTO) 4.2 K/uL (1.8-8.9); NEUTROPHILS % (AUTO) 73.2 % (43.0-81.0); PLATELET COUNT (AUTO) 109 K/uL (150-450); RED BLOOD CELL COUNT(AUTO) 2.12 MIL/uL (4.5-6.0)
--- NOTE | 2021-08-11 14:53 | NUR ---
COVID ANTIGEN SWAB DONE AND SENT TO THE LAB
[2021-08-11 14:57] LABS: HEMOGLOBIN 6.8 g/dL (13.5-17.5)
[2021-08-11 14:58] LABS: HEMATOCRIT 20 % (39-51)
[2021-08-11 15:05] LABS: BILIRUBIN,URINE NEGATIVE (NEGATIVE); COLOR,URINE YELLOW (YELLOW); LEUKOCYTE ESTERASE ,URINE NEGATIVE (NEGATIVE); NITRITE, URINE NEGATIVE (NEGATIVE); PH,URINE 5.5 (5.0-8.0); PROTEIN,URINE 30 mg/dl (NEGATIVE); UGLUCOSE NEGATIVE (NEGATIVE); UROBILINOGEN,URINE 0.2 EU/dL (0.2)
[2021-08-11 15:33] LABS: BACTERIA,URINE None seen /HPF (None Seen); WBC,URINE 0-2 /HPF (0-3)
[2021-08-11 15:34] LABS: ALANINE AMINOTRANSFERASE 24 U/L (12-78); ALBUMIN 2.4 g/dL (3.4-5.0); ALKALINE PHOSPHATASE 81 U/L (46-116); ASPARTATE AMINOTRANSFERASE 21 U/L (15-37); BILIRUBIN,DIRECT 0.2 mg/dL (0.0-0.2); BILIRUBIN,TOTAL 0.3 mg/dL (0.2-1.0); CALCIUM, SERUM 7.4 mg/dL (8.5-10.1); CARBON DIOXIDE 22 mmol/L (21-32); CHLORIDE 109 mmol/L (98-107); CREATININE 1.7 mg/dL (0.6-1.3); GLUCOSE 115 mg/dL (74-106); LIPASE 48 U/L (73-393); POTASSIUM 4.7 mmol/L (3.5-5.1); SODIUM SERUM 141 mmol/L (136-145); TOTAL PROTEIN, SERUM 7.3 g/dL (6.4-8.2); UREA NITROGEN, BLOOD 26 mg/dL (7-18)
[2021-08-11 15:43] LABS: EOSINOPHILS % (MANUAL) 2 % (0-4); LYMPHOCYTES % (MANUAL) 6 % (16-48); MONOCYTES % (MANUAL) 7 % (0-11.0); NEUTROPHILS % (MANUAL) 85 (42-76)
[2021-08-11] MEDS ORDERED: PIPERACILLIN /TAZOBACTAM 3.375 G in IV D5W 50 ML IV ONE (16:00)
[2021-08-11] MEDS ORDERED: VANCOMYCIN 1 GM in IV D5W 250 ML IV ONE (16:00)
[2021-08-11] MEDS ORDERED: IV NS 0.9% 250 ML IV ONE (16:42)
[2021-08-11] MEDS ORDERED: IOHEXOL-300 100 ML VIAL IV ONE (16:42)
--- NOTE | 2021-08-11 16:53 | NUR ---
PT IS BACK FROM THE CT SCAN.
[2021-08-11] MEDS ORDERED: MORPHINE SULFATE INJ 2 MG/ML DISP.SYRIN IV PRN (18:30)
[2021-08-11] MEDS ORDERED: ACETAMINOPHEN 325 MG TABLET PO PRN (18:30)
[2021-08-11] MEDS ORDERED: MAGNESIUM HYDROXIDE 30 ML UDC PO PRN (18:30)
[2021-08-11] MEDS ORDERED: ZOLPIDEM TARTRATE 5 MG TABLET PO PRN (18:30)
[2021-08-11] MEDS ORDERED: ONDANSETRON HCL/PF 4 MG/2 ML VIAL IVP PRN (18:30)
[2021-08-11] MEDS ORDERED: Z GUARD REMEDY 4 OZ OINT TP PRN (18:30)
[2021-08-11] MEDS ORDERED: MAG HYDROX/AL HYDROX/SIMETH 30 ML UDC PO PRN (18:30)
[2021-08-11] MEDS ORDERED: MEROPENEM 500 MG in IV NS 0.9% 50 ML IV SCH (21:00)
--- NOTE | 2021-08-11 22:48 | NUR ---
MRSA SWAB COLLECTED AND SENT TO LAB. PATIENT'S BELONGINGS LIST DONE.
[2021-08-12] MEDS ORDERED: MEROPENEM 500 MG VIAL IV ONE (00:18)
[2021-08-12] MEDS ORDERED: PIPERACILLIN /TAZOBACTAM 3.375 G in IV D5W 50 ML IV SCH (01:00)
[2021-08-12] MEDS ORDERED: HYDROCODONE/APAP 5/325MG TABLET ONE (01:37)
[2021-08-12] MEDS: HYDROCODONE/APAP 5/325MG TABLET PO PRN (01:47)
--- NOTE | 2021-08-12 05:00 | NUR ---
PATIENT RESTING IN BED, VSS, NO ACUTE DISTRESS NOTED. AM CARE DONE, PT TURNED Q2HR. PT CONNECTED TO MONITORS.
[2021-08-12 06:11] LABS: CALCIUM, SERUM 7.8 mg/dL (8.5-10.1); CARBON DIOXIDE 23 mmol/L (21-32); CHLORIDE 108 mmol/L (98-107); CREATININE 1.8 mg/dL (0.6-1.3); GLUCOSE 90 mg/dL (74-106); PHOSPHORUS 3.4 mg/dL (2.5-4.9); POTASSIUM 4.5 mmol/L (3.5-5.1); SODIUM SERUM 140 mmol/L (136-145); UREA NITROGEN, BLOOD 24 mg/dL (7-18)
[2021-08-12 07:00] LABS: BASOPHILS % (AUTO) 0.4 % (0.0-2.0); EOSINOPHILS % (AUTO) 1.7 % (0.0-6.0); HEMATOCRIT 24 % (39-51); LYMPHOCYTES # (AUTO) 0.5 K/uL (0.8-4.8); MEAN CORPUSCULAR HGB CONC 33 g/dl (31.0-36.0); MEAN CORPUSCULAR VOLUME 96 fL (80-96); MONOCYTES # (AUTO) 0.9 K/uL (0.1-1.30); MONOCYTES % (AUTO) 13.6 % (2.0-12.0); NEUTROPHILS # (AUTO) 5.3 K/uL (1.8-8.9); NEUTROPHILS % (AUTO) 77.3 % (43.0-81.0); PLATELET COUNT (AUTO) 151 K/uL (150-450); RED BLOOD CELL COUNT(AUTO) 2.51 MIL/uL (4.5-6.0); WHITE BLOOD COUNT (AUTO) 6.8 K/uL (4.3-11.0)
--- NOTE | 2021-08-12 07:59 | NUR ---
THE PATIENT IS RECEIVED IN ER BED #12. THE PATIENT IS ALERT AND ORIENTED X3. DENIES PAIN. IN ROOM AIR AND DENIES SOB. RESPIRATION REGULAR AND UNLABORED. WILL CONTINUE TO MONITOR THE PATIENT.
[2021-08-12] MEDS: PANTOPRAZOLE 40 MG TABLET.DR PO SCH (08:30)
[2021-08-12] MEDS ORDERED: PANTOPRAZOLE 40 MG TABLET.DR PO ONE (08:35)
--- NOTE | 2021-08-12 08:57 | NUR ---
HOME MEDICATION STIVARGA 40 MG TABLETS HANDED TO THE PHARMACIST. ENVELOP #[id number]. THE RECEIPT IS IN THE PATIENT`S CHART.
[2021-08-12] MEDS: MEROPENEM 500 MG in IV NS 0.9% 50 ML IV SCH ×2 (08:58→18:10)
--- NOTE | 2021-08-12 11:50 | NUR ---
PT AAOX2, RR EVEN & UNLABORED. DENIES CP, SOB, DIZZINESS, N/V/D, ABD PAIN AT THIS TIME. WILL CONT TO MONITOR.
--- NOTE | 2021-08-12 13:37 | NUR ---
PT RESTING, EASILY AWAKEN BY VERBAL STIMULI. DENIES CP, SOB, DIZZINESS, N/V AT THIS TIME. WILL CONT TO MONITOR.
--- NOTE | 2021-08-12 14:11 | NUR ---
GOT BED 326-2
--- NOTE | 2021-08-12 14:35 | NUR ---
REPORT GIVEN TO NURSE SUSHILI FOR SOFIE
--- NOTE | 2021-08-12 15:30 | NUR ---
COMMUNICATIONS ANALYST OPENING NOTES RECEIVED PATIENT FROM ER. ALERT AND ORIENTED TIMES 3. NO PAIN OTED. NO SOB NOTED. WVITAL SIGNS WITHIN NORMAL RANGES. MICHELLE CATH ON THE LEFT UPPER CHEST. SKIN DRYNESS ON BOTH PALM NOTED. LEFT LOWER ABDOMINAL WOUND NOTED. IV SITE ON THE RIGHT FOREARM #20 INTACT.IV SITE ON THE LEFT AC #18 INTACT. BLE TO VERBALIZE NEEDS. BED LOCKED IN LOWEST POSITION. TABLE AND CALL LIGHT WITHIN REACH . WILL CONTINUE TO MONITOR.
[2021-08-12] MEDS: VANCOMYCIN 0.75 GM in IV D5W 250 ML IV SCH (16:03)
[2021-08-12] MEDS: CARVEDILOL 6.25 MG TABLET PO SCH (18:16)
--- NOTE | 2021-08-12 18:30 | NUR ---
INSTRUCTOR WARPER CLOSING NOTES PTIENT ALERT AND ORIENTED TIMES 3. NO PAIN NOTED. NO SOB NOTED. VITAL SIGNS WITHIN NORMAL RANGES. MICHELLE CATH ON THE LEFT UPPER CHEST. SKIN DRYNESS ON BOTH PALM NOTED. LEFT LOWER ABDOMINAL WOUND NOTED. IV SITE ON THE RIGHT FOREARM #20 INTACT.IV SITE ON THE LEFT AC #18 INTACT. PATIENT ABLE TO VERBALIZE NEEDS. ALL DUE MEDS GIVEN ORDERED.BED LOCKED IN LOWEST POSITION. TABLE AND CALL LIGHT WITHIN REACH . WILL ENDORSE INCOMING FOR SOFIE.
--- NOTE | 2021-08-12 19:45 | NUR ---
TOWN PLANNER NOTES RECEIVED ON BED A/O X3,BREATHING EASY,NO SOB,ABLE TO VERBALIZED NEEDS,CONVERSANT,WITH IV ACCESS ON RIGHT AND LEFT ARM.STARTED ON NS AT 70ML/HR RATE INFUSING ON RIGHT FOREARM SALINE LOCK VIA IV PUMP,SITE PATENT.NOTED SKIN REDNESS ON LEFT GROIN AREA,TENDER TO THE TOUCH.NOTED LEFT UPPER ARM MICHELLE CATH FOR CHEMO TREATMENT BEFORE,NOW ON CHEMO PILLS.FALL PRECAUTION OBSERVED,BED ON LOWEST POSITION AND LOCKED,BED ALARM,CALL LIGHT IN REACH,NEEDS ANTICIPATED.
[2021-08-12 20:00] VITALS: BP 128/69
[2021-08-12] MEDS ORDERED: STIVARGA 40 MG PO SCH (20:00)
[2021-08-12] MEDS: IV NS 0.9% 1,000 ML IV PRN (20:10)
[2021-08-13] VITALS: BP 135/65
[2021-08-13] MEDS: MEROPENEM 500 MG in IV NS 0.9% 50 ML IV SCH ×3 (00:52→17:37)
--- NOTE | 2021-08-13 01:00 | NUR ---
FUNERAL CAR DRIVER NOTES SB 57 ON TELE MONITOR,AWAKE,WATCHING TV PROGRAM,BREATHING NON LABORED,KEPT NPO GOING FOR CT ABDOMEN AND CHEST WITH CONTRAST,CONSENT ON CHART,CALL LIGHT IN REACH,NEEDS ATTENDED.
[2021-08-13 04:00] VITALS: BP 144/65
[2021-08-13] MEDS: PANTOPRAZOLE 40 MG TABLET.DR PO SCH (07:30)
[2021-08-13 07:55] LABS: BASOPHILS % (AUTO) 0.3 % (0.0-2.0); EOSINOPHILS % (AUTO) 3.3 % (0.0-6.0); HEMATOCRIT 23 % (39-51); HEMOGLOBIN 7.4 g/dL (13.5-17.5); LYMPHOCYTES # (AUTO) 0.8 K/uL (0.8-4.8); LYMPHOCYTES % (AUTO) 13.9 % (20.0-44.0); MEAN CORPUSCULAR HGB CONC 33 g/dl (31.0-36.0); MEAN CORPUSCULAR VOLUME 95 fL (80-96); MONOCYTES # (AUTO) 1.1 K/uL (0.1-1.30); MONOCYTES % (AUTO) 17.7 % (2.0-12.0); NEUTROPHILS # (AUTO) 3.9 K/uL (1.8-8.9); NEUTROPHILS % (AUTO) 64.8 % (43.0-81.0); PLATELET COUNT (AUTO) 130 K/uL (150-450); RED BLOOD CELL COUNT(AUTO) 2.36 MIL/uL (4.5-6.0)
--- NOTE | 2021-08-13 07:56 | NUR ---
RN Note Patient received in bed AO x 2-3, able to responds all stimuli. No distress observed. Respiratory even and unlabored on room air, no SOB observed. Skin is warm to touch, keep clean/dry. Call light within reach, kept elevated HOB for ensure airway and lower bed position for safety. Patient keep on NPO for CT ABD today. Will continue to monitor.
[2021-08-13 08:00] VITALS: BP 170/72
--- NOTE | 2021-08-13 08:55 | NUR ---
WOUND CARE CONSULT: RECEIVED CONSULT FOR LEFT GROIN AREA. RAISED AREA NOTED TO LEFT GROIN/LOWER ABDOMEN WITH INDURATION. PT FOLLOWED BY SURGEON AT THIS TIME. DEFER TO SURGEON. RECOMMENDATIONS MADE FOR SKIN PROTECTION AND DISCUSSED WITH NURSING STAFF. MD IN AGREEMENT WITH PLAN OF CARE.
[2021-08-13] MEDS ORDERED: AMLODIPINE BESYLATE 10 MG TABLET PO SCH (09:00)
[2021-08-13] MEDS: TAMSULOSIN 0.4 MG CAP.SR.24H PO SCH (09:00)
[2021-08-13 09:02] LABS: ALANINE AMINOTRANSFERASE 21 U/L (12-78); ALBUMIN 2.1 g/dL (3.4-5.0); ALKALINE PHOSPHATASE 69 U/L (46-116); ASPARTATE AMINOTRANSFERASE 21 U/L (15-37); BILIRUBIN,TOTAL 0.3 mg/dL (0.2-1.0); CALCIUM, SERUM 7.7 mg/dL (8.5-10.1); CARBON DIOXIDE 21 mmol/L (21-32); CHLORIDE 110 mmol/L (98-107); CREATININE 1.8 mg/dL (0.6-1.3); GLUCOSE 110 mg/dL (74-106); POTASSIUM 4.2 mmol/L (3.5-5.1); SODIUM SERUM 141 mmol/L (136-145); TOTAL PROTEIN, SERUM 6.6 g/dL (6.4-8.2); UREA NITROGEN, BLOOD 25 mg/dL (7-18)
[2021-08-13 09:18] LABS: C-REACTIVE PROTEIN 4.2 mg/dL (0.0-0.9)
[2021-08-13 09:20] LABS: THYROID STIMULATING HORMONE 6.935 uIU/mL (0.358-3.74)
[2021-08-13] MEDS: CARVEDILOL 6.25 MG TABLET PO SCH ×2 (09:42→17:38)
--- NOTE | 2021-08-13 10:10 | NUR ---
Patient was going to CT ABD with contrast but Dr. Joel hold it due to creatine is high, informed MD regarding above.
[2021-08-13 12:00] VITALS: BP 175/60
--- NOTE | 2021-08-13 12:56 | NUR ---
Patient noted SBP > 170 during resting in bed, received new order Clonidine 0.1 mg q 6 hours prn for SBP > 160. Noted and carry out.
[2021-08-13] MEDS: CLONIDINE HCL 0.1 MG TABLET PO PRN ×2 (13:31→22:38)
--- NOTE | 2021-08-13 14:00 | NUR ---
Dr. Joel wants to f Addendum: 08/13/21 at 1400 by ANALY ARREOLA RN Error
--- NOTE | 2021-08-13 14:01 | NUR ---
Dr. Joel wants to get the note from Dr. Andujar/Oncology, patient singed on authorization of health information.
--- NOTE | 2021-08-13 15:25 | NUR ---
Authorization of health information faxed over to the [facility], a waiting medica record.
[2021-08-13 16:00] VITALS: BP 144/66
[2021-08-13] MEDS: VANCOMYCIN 0.75 GM in IV D5W 250 ML IV SCH (16:13)
[2021-08-13] MEDS: IV NS 0.9% 1,000 ML IV PRN (17:38)
--- NOTE | 2021-08-13 18:40 | NUR ---
RN Closing Note Patient in bed AO x 2-3, confused occasionally. No distress observed, respiratory even and unlabored on room air. Skin is warm to touch, keep clean/dry, seen by wound care consult today. Kept elevated HOB for ensure airway and lower position of the bed for safety. Patient noted Hgb level 7.4, MD made aware and no new order at this time. Call light within reach, all needs met. will endorse ship's captain.
--- NOTE | 2021-08-13 18:43 | NUR ---
RN Closing Note Patient in bed remains AO x 4. No distress observed, respiratory even and unlabored on room air. Skin is warm to touch, keep clean/dry. Kept elevated HOB for ensure airway and lower position of the bed for safety. Patient done CT ABD and it shows bilateral lower lobe atelectasis and pleural effusion, informed MD. Call light within reach, all needs met. will endorse shift commander. Addendum: 08/13/21 at 1849 by ANALY ARREOLA RN error
[2021-08-13 20:00] VITALS: BP 169/65
[2021-08-13 22:17] LABS: BAND % (MANUAL) 2 % (0.0-5.0); EOSINOPHILS % (MANUAL) 1 % (0-4); LYMPHOCYTES % (MANUAL) 10 % (16-48); MONOCYTES % (MANUAL) 19 % (0-11.0); NEUTROPHILS % (MANUAL) 68 (42-76)
--- NOTE | 2021-08-13 22:45 | NUR ---
PRN clonidine given as per order for SBP >160
[2021-08-14] VITALS: BP 141/66
--- NOTE | 2021-08-14 | NUR ---
B/P down to 141/66
[2021-08-14] MEDS: MEROPENEM 500 MG in IV NS 0.9% 50 ML IV SCH ×3 (00:26→17:16)
[2021-08-14 04:00] VITALS: BP 181/70
[2021-08-14] MEDS: IV NS 0.9% 1,000 ML IV PRN (05:58)
[2021-08-14 07:06] LABS: AFP, TUMOR MARKER <0.9 ng/mL (0.0-8.3)
--- NOTE | 2021-08-14 07:20 | NUR ---
Patient A&Ox3. VSS overnight. States he is currently comfortable and in no signs of distress. Tolerating warm compress to groin area. Still swollen and reddened. Able to get to BSC with 1 person assist. Clear yellow urine. Tolerating IV ABX and IVF well. No complaints of pain overnight. Safety measures in place.
--- NOTE | 2021-08-14 07:20 | NUR ---
WEIGHT ANALYST OPENING NOTES RECEIVED PATIENT ON BED ALERT AND ORIENTED X 2 WITH NO SIGNS OF DISTRESS. PATIENT IS ROOM AIR WITH EQUAL AND UNLABORED BREATHING. PATIENT IS ON TELE MONITOR WITH READING OF SINUS JACOB AT 55. PATIENT WITH LEFT FA G 18 WITH NS AT 70 ML /HR. SAFETY MEASURES IN PLACE WITH CALL LIGHT WITHIN REACH, BED IN LOWEST POSITION, SR UP X 3 WITH BED ALARM ON FOR SAFETY. WILL CONTINUE TO MONITOR PATIENT.
[2021-08-14 07:59] LABS: BASOPHILS % (AUTO) 0.7 % (0.0-2.0); EOSINOPHILS % (AUTO) 4.2 % (0.0-6.0); HEMATOCRIT 21 % (39-51); HEMOGLOBIN 7.1 g/dL (13.5-17.5); LYMPHOCYTES # (AUTO) 0.6 K/uL (0.8-4.8); LYMPHOCYTES % (AUTO) 14.3 % (20.0-44.0); MEAN CORPUSCULAR HGB CONC 33 g/dl (31.0-36.0); MEAN CORPUSCULAR VOLUME 95 fL (80-96); MONOCYTES # (AUTO) 0.9 K/uL (0.1-1.30); NEUTROPHILS # (AUTO) 2.7 K/uL (1.8-8.9); NEUTROPHILS % (AUTO) 60.8 % (43.0-81.0); PLATELET COUNT (AUTO) 118 K/uL (150-450); RED BLOOD CELL COUNT(AUTO) 2.25 MIL/uL (4.5-6.0); WHITE BLOOD COUNT (AUTO) 4.4 K/uL (4.3-11.0)
[2021-08-14 08:00] VITALS: BP 182/68
[2021-08-14 08:07] LABS: CARBOHYDRATE AG 19-9 65 U/mL (0-35); IMMUNOGLOBULIN A, SERUM 335 mg/dL (61-437); IMMUNOGLOBULIN G, SERUM 1866 mg/dL (603-1613); IMMUNOGLOBULIN M, SERUM 91 mg/dL (15-143)
[2021-08-14 08:14] LABS: T4 (THYROXINE) 4.9 ug/dL (4.7-13.3)
[2021-08-14] MEDS: TAMSULOSIN 0.4 MG CAP.SR.24H PO SCH (08:15)
[2021-08-14] MEDS: PANTOPRAZOLE 40 MG TABLET.DR PO SCH (08:15)
[2021-08-14] MEDS: CARVEDILOL 6.25 MG TABLET PO SCH ×2 (08:16→17:17)
[2021-08-14] MEDS ORDERED: hydrALAZINE HCL IV 20 MG VIAL IV PRN (08:30)
[2021-08-14 08:38] LABS: CALCIUM, SERUM 7.4 mg/dL (8.5-10.1); CARBON DIOXIDE 20 mmol/L (21-32); CHLORIDE 112 mmol/L (98-107); CREATININE 1.5 mg/dL (0.6-1.3); GLUCOSE 117 mg/dL (74-106); POTASSIUM 4.2 mmol/L (3.5-5.1); SODIUM SERUM 142 mmol/L (136-145); UREA NITROGEN, BLOOD 22 mg/dL (7-18)
[2021-08-14] MEDS: AMLODIPINE BESYLATE 10 MG TABLET PO SCH (09:39)
--- NOTE | 2021-08-14 11:00 | NUR ---
FILM PROCESSOR NOTE PATIENT SEEN BY DR. CRAWFORD WITH ORDER TO TRANSFUSE 1 U OF BLOOD. ORDERS MADE AND CARRIED OUT. WILL CONTINUE TO MONITOR PATIENT.
[2021-08-14 11:07] LABS: *ANA ANTI-CENTROMERE B AB <0.2 AI (0.0-0.9); *ANA ANTI-DNA(DS) AB, QN <1 IU/mL (0-9); *ANA ANTI-JO-1 <0.2 AI (0.0-0.9); *ANA ANTICHROMATIN ANTIBODY <0.2 AI (0.0-0.9); *ANA RNP ANTIBODIES <0.2 AI (0.0-0.9); *ANA SJOGREN'S ANTI-SS-A <0.2 AI (0.0-0.9); *ANA SJOGREN'S ANTI-SS-B <0.2 AI (0.0-0.9); *ANAANTI-SCLERODERMA-70 AB <0.2 AI (0.0-0.9); *ANASMITH AB <0.2 AI (0.0-0.9)
[2021-08-14 12:00] VITALS: BP 175/64
[2021-08-14 14:07] LABS: *SPE A/G RATIO 0.6 (0.7-1.7); *SPE ALPHA-1-GLOBULIN 0.3 g/dL (0.0-0.4); *SPE ALPHA-2-GLOBULIN 0.8 g/dL (0.4-1.0); *SPE M-SPIKE Not Observed g/dL (Not Observed)
[2021-08-14] MEDS: SOD FERRIC GLUC 125 MG in IV NS 0.9% 100 ML IV SCH (15:21)
[2021-08-14 16:00] VITALS: BP 172/68
[2021-08-14] MEDS: VANCOMYCIN 0.75 GM in IV D5W 250 ML IV SCH (16:37)
[2021-08-14 17:19] LABS: BAND % (MANUAL) 1 % (0.0-5.0); EOSINOPHILS % (MANUAL) 7 % (0-4); LYMPHOCYTES % (MANUAL) 30 % (16-48); MONOCYTES % (MANUAL) 11 % (0-11.0); NEUTROPHILS % (MANUAL) 51 (42-76)
--- NOTE | 2021-08-14 19:00 | NUR ---
PATHOLOGY MANAGER CLOSING NOTES PATIENT ON BED ALERT AND ORIENTED X 2 WITH NO SIGNS OF DISTRESS. PATIENT IS ROOM AIR WITH EQUAL AND UNLABORED BREATHING. PATIENT IS ON TELE MONITOR WITH READING OF SINUS RHYTHYM AT 60'S. PATIENT WITH INFILTRATED IV ACCESS. IV REMOVED AND UNABLE TO ESTABLISH A NEW ONE. PATIENT REFUSED IV ACCESS AND BLOOD DRAW AT THIS TIME. PATIENT STILL FOR BLOOD TRANSFUSION OF 1 UNIT RBC, AVAILABLE ONCE WITH ACCESS. SAFETY MEASURES IN PLACE WITH CALL LIGHT WITHIN REACH, BED IN LOWEST POSITION, SR UP X 3 WITH BED ALARM ON FOR SAFETY. WILL ENDORSED ACCORDINGLY.
[2021-08-14 20:00] VITALS: BP 170/69
[2021-08-14] MEDS: CLONIDINE HCL 0.1 MG TABLET PO PRN (23:02)
[2021-08-15] VITALS (9 sets, daily range): BP systolic 130–176; BP diastolic 54–93
[2021-08-15] MEDS: MEROPENEM 500 MG in IV NS 0.9% 50 ML IV SCH ×3 (01:11→16:25)
[2021-08-15] MEDS ORDERED: hydrALAZINE HCL IV 20 MG VIAL ONE (02:54)
--- NOTE | 2021-08-15 07:50 | NUR ---
ACCOUNTS PAYABLE REPRESENTATIVE CLOSING NOTES PATIENT RESTING IN BED, ALERT/ORIENTED X 2-3, PT ABLE TO MAKE NEEDS KNOWN. PT STABLE ON RA, NO S/S OF DISTRESS OR SOB NOTED, BREATHING EVEN AND UNLABORED. PATIENT ON EXTERNAL CASHIER TICKET SELLING READING SINUS RHYTHM, HR: 61. IV ACCESS INSERTED ON RIGHT WRIST #20G, INTACT AND RUNNING NS @ 70 ML/HR. PATIENT REFUSED LAB DRAW THIS AM. PRN BP MEDICATION GIVEN TO LOWER BP THAT WAS SBP > 160. WAS UNABLE TO GIVE 1 UNIT OF PRBC BECAUSE BLOOD BANK PERSONNEL WERE NOT AVAILABLE WHEN I ATTEMPTED TO GO TWICE, ENDORSED TO DAY SHIFT NURSE. MEDICATION GIVEN ORDERED, PT NEEDS MET THROUGHOUT SHIFT. SAFETY MEASURES IN PLACE: CALL LIGHT WITHIN REACH, SIDE RAILS UP X 2, BED LOCKED IN LOW POSITION, BED ALARM ON. ENDORSED TO DAY SHIFT NURSE FOR CONTINUITY OF CARE
[2021-08-15] MEDS: TAMSULOSIN 0.4 MG CAP.SR.24H PO SCH (08:56)
[2021-08-15] MEDS: PANTOPRAZOLE 40 MG TABLET.DR PO SCH (08:56)
[2021-08-15] MEDS: hydrALAZINE HCL 25 MG TABLET PO SCH ×3 (08:57→21:44)
[2021-08-15] MEDS: AMLODIPINE BESYLATE 10 MG TABLET PO SCH (08:57)
[2021-08-15] MEDS: CARVEDILOL 6.25 MG TABLET PO SCH ×2 (08:58→16:04)
--- NOTE | 2021-08-15 11:03 | NUR ---
RN NOTES BLOOD PRODUCT 1PRBC OBTAINED FROM LAB. BLOOD PRODUCT VERIFIED AND WITNESS BY ANOTHER JANNA GONZALEZ. PRE-TRANSFUSION VS TAKEN AND RECORDED. WILL START INFUSION INDICATED.
--- NOTE | 2021-08-15 11:15 | NUR ---
RN NOTES VS TAKEN AND RECORDED. CURRENTLY MONITORED FOR TRANSFUSION REACTION; PATIENT CURRENTLY AFEBRILE AT THIS TIME. WILL CONTINUE TO MONITOR.
--- NOTE | 2021-08-15 13:56 | NUR ---
RN NOTES TRANSFUSED 1PRBC TODAY; VS TAKEN AND RECORDED. NO TRANSFUSION REACTION NOTED. PATIENT CURRENTLY AFEBRILE AND EATING LATE LUNCH RIGHT NOW. WILL CONTINUE TO MONITOR.
[2021-08-15] MEDS: SOD FERRIC GLUC 125 MG in IV NS 0.9% 100 ML IV SCH (14:53)
[2021-08-15] MEDS: VANCOMYCIN 0.75 GM in IV D5W 250 ML IV SCH (15:37)
--- NOTE | 2021-08-15 16:30 | NUR ---
RN NOTES CONSENT FORM SIGNED BY PATIENT FOR US-GUIDED PERCUTANEOUS ABSCESS DRAINAGE OF LEFT INGUINAL HETEROGENOUS MASS; PATIENT MADE AWARE BY CONOR SALAZAR ONCO. CONSENT FORM PLACED IN PATIENT'S CHART.
--- NOTE | 2021-08-15 17:28 | NUR ---
RN NOTES STIVARGA HOME MEDICATION RECEIVED FROM PATIENT'S SON AND DROPPED OFF AT PHARMACY.
--- NOTE | 2021-08-15 18:48 | NUR ---
RN NOTES PHLEB TECH AT BEDSIDE TO DRAW BLOOD.
--- NOTE | 2021-08-15 18:57 | NUR ---
RN NOTES PHLEB TECH ABLE TO DRAW BLOOD FOR LABS; PATIENT RESTING IN BED AT THIS TIME, DRINKING COFFEE AND EATING BREAD. BREATHING EVEN AND UNLABORED, NOT IN ACUTE DISTRESS. IV LINE INTACT AND PATENT. NO COMPLAINT OF PAIN AT THIS TIME. SAFETY MEASURES MAINTAINED. WILL ENDORSE TO FAMILY MANAGER RN FOR SOFIE.
[2021-08-15 19:16] LABS: ALANINE AMINOTRANSFERASE 15 U/L (12-78); ALBUMIN 2.2 g/dL (3.4-5.0); ALKALINE PHOSPHATASE 79 U/L (46-116); ASPARTATE AMINOTRANSFERASE 20 U/L (15-37); BILIRUBIN,TOTAL 0.3 mg/dL (0.2-1.0); CALCIUM, SERUM 7.3 mg/dL (8.5-10.1); CARBON DIOXIDE 23 mmol/L (21-32); CHLORIDE 110 mmol/L (98-107); CREATININE 1.7 mg/dL (0.6-1.3); GLUCOSE 127 mg/dL (74-106); MAGNESIUM 2.1 mg/dL (1.8-2.4); PHOSPHORUS 3.1 mg/dL (2.5-4.9); POTASSIUM 4.1 mmol/L (3.5-5.1); SODIUM SERUM 141 mmol/L (136-145); TOTAL PROTEIN, SERUM 6.8 g/dL (6.4-8.2); UREA NITROGEN, BLOOD 21 mg/dL (7-18)
--- NOTE | 2021-08-15 19:45 | NUR ---
RECORD LABEL INTERNSHIP NOTES RECEIVED ON BED ON HIGH FOWLERS POSITION,BREATHING REGULAR,NOT IN ANY FORM OF DISTRESS,PRESENT IVF NS AT 70ML/HR RATE,SITE ON PATENT ON RIGHT WRIST.GOING FOR ULTRASOUND DRAINAGE OF LEFT GROIN ABSCESS,CONSENT ON CHART.FALL PRECAUTION OBSERVED,BED ALARM,CALL LIGHT IN REACH,NEEDS ANTICIPATED.
[2021-08-15 20:49] LABS: BASOPHILS % (AUTO) 0.3 % (0.0-2.0); EOSINOPHILS % (AUTO) 2.6 % (0.0-6.0); HEMATOCRIT 25 % (39-51); HEMOGLOBIN 8.3 g/dL (13.5-17.5); LYMPHOCYTES # (AUTO) 0.7 K/uL (0.8-4.8); LYMPHOCYTES % (AUTO) 13.4 % (20.0-44.0); MEAN CORPUSCULAR HGB CONC 33 g/dl (31.0-36.0); MEAN CORPUSCULAR VOLUME 96 fL (80-96); MONOCYTES % (AUTO) 17.5 % (2.0-12.0); NEUTROPHILS # (AUTO) 3.7 K/uL (1.8-8.9); NEUTROPHILS % (AUTO) 66.2 % (43.0-81.0); PLATELET COUNT (AUTO) 121 K/uL (150-450); WHITE BLOOD COUNT (AUTO) 5.6 K/uL (4.3-11.0)
[2021-08-15 22:49] LABS: EOSINOPHILS % (MANUAL) 2 % (0-4); LYMPHOCYTES % (MANUAL) 12 % (16-48); MONOCYTES % (MANUAL) 14 % (0-11.0); NEUTROPHILS % (MANUAL) 72 (42-76)
[2021-08-16] VITALS: BP 177/80
[2021-08-16] MEDS: MEROPENEM 500 MG in IV NS 0.9% 50 ML IV SCH ×2 (01:21→10:37)
[2021-08-16 04:00] VITALS: BP 170/70
--- NOTE | 2021-08-16 05:00 | NUR ---
DONOR SERVICES MANAGER NOTES BP 170/70,DUE LOPRESSOR 50MG PO GIVEN ORDERED.
[2021-08-16] MEDS: hydrALAZINE HCL 25 MG TABLET PO SCH ×3 (05:05→22:04)
--- NOTE | 2021-08-16 06:54 | NUR ---
MATHEMATICS IMPROVEMENT TEACHER NOTES FAIRLY RESTED AT NIGHT.WARM COMPRESS TO LEFT GROIN Q 6HOURS DONE.GOING FOR ULTRASOUND GUIDED TO LEFT GROIN ABSCESS,CONSENT ON CHART.IN NO ACUTE DISTRESS.
[2021-08-16 07:18] LABS: BASOPHILS % (AUTO) 0.4 % (0.0-2.0); EOSINOPHILS % (AUTO) 1.8 % (0.0-6.0); HEMATOCRIT 24 % (39-51); HEMOGLOBIN 8.1 g/dL (13.5-17.5); LYMPHOCYTES # (AUTO) 0.7 K/uL (0.8-4.8); LYMPHOCYTES % (AUTO) 9.2 % (20.0-44.0); MEAN CORPUSCULAR HGB CONC 33 g/dl (31.0-36.0); MEAN CORPUSCULAR VOLUME 96 fL (80-96); MONOCYTES # (AUTO) 1.1 K/uL (0.1-1.30); MONOCYTES % (AUTO) 14.2 % (2.0-12.0); NEUTROPHILS # (AUTO) 5.7 K/uL (1.8-8.9); NEUTROPHILS % (AUTO) 74.4 % (43.0-81.0); PLATELET COUNT (AUTO) 135 K/uL (150-450); RED BLOOD CELL COUNT(AUTO) 2.54 MIL/uL (4.5-6.0); WHITE BLOOD COUNT (AUTO) 7.7 K/uL (4.3-11.0)
--- NOTE | 2021-08-16 07:49 | NUR ---
TYPESETTER APPRENTICE OPENING NOTES RECEIVED PATIENT IN BED, AWAKE, A/O X3. PATIENT ON ROOM AIR; BREATHING EVEN AND UNLABORED AT THIS TIME. WITH MILD EXERTION HAS RESPIRATORY WHEEZING. TELE MONITOR WITH A CURRENT READING OF SR 68. IV ACCESS AT R WRIST G # 20. L GROIN ABDOMINAL ABSCESS PRESENT; AWAITING DRAINAGE. SAFETY PRECAUTIONS IN PLACE; BED IN LOW POSITION AND LOCKED, RAILS UP X2, CALL LIGHT WITHIN REACH. WILL CONTINUE TO MONITOR PATIENT.
[2021-08-16 08:00] VITALS: BP 186/86
[2021-08-16 08:07] LABS: ALANINE AMINOTRANSFERASE 14 U/L (12-78); ALBUMIN 2.2 g/dL (3.4-5.0); ALKALINE PHOSPHATASE 77 U/L (46-116); ASPARTATE AMINOTRANSFERASE 20 U/L (15-37); BILIRUBIN,TOTAL 0.3 mg/dL (0.2-1.0); CALCIUM, SERUM 7.8 mg/dL (8.5-10.1); CARBON DIOXIDE 23 mmol/L (21-32); CHLORIDE 111 mmol/L (98-107); CREATININE 1.5 mg/dL (0.6-1.3); GLUCOSE 118 mg/dL (74-106); POTASSIUM 4.4 mmol/L (3.5-5.1); SODIUM SERUM 144 mmol/L (136-145); TOTAL PROTEIN, SERUM 6.8 g/dL (6.4-8.2); UREA NITROGEN, BLOOD 22 mg/dL (7-18)
[2021-08-16 08:09] LABS: CALCIUM, SERUM 7.8 mg/dL (8.5-10.1); CARBON DIOXIDE 23 mmol/L (21-32); CHLORIDE 111 mmol/L (98-107); CREATININE 1.5 mg/dL (0.6-1.3); GLUCOSE 118 mg/dL (74-106); POTASSIUM 4.3 mmol/L (3.5-5.1); SODIUM SERUM 143 mmol/L (136-145); UREA NITROGEN, BLOOD 22 mg/dL (7-18)
[2021-08-16] MEDS: AMLODIPINE BESYLATE 10 MG TABLET PO SCH (08:41)
[2021-08-16] MEDS: PANTOPRAZOLE 40 MG TABLET.DR PO SCH (08:41)
[2021-08-16] MEDS: CARVEDILOL 6.25 MG TABLET PO SCH ×2 (08:42→16:32)
[2021-08-16] MEDS: TAMSULOSIN 0.4 MG CAP.SR.24H PO SCH (08:42)
[2021-08-16 12:00] VITALS: BP 161/91
[2021-08-16] MEDS: SOD FERRIC GLUC 125 MG in IV NS 0.9% 100 ML IV SCH (15:21)
[2021-08-16 16:00] VITALS: BP 157/81
[2021-08-16] MEDS: VANCOMYCIN 0.75 GM in IV D5W 250 ML IV SCH (16:05)
[2021-08-16] MEDS ORDERED: IV NS 0.9% 250 ML IV ONE (16:16)
[2021-08-16] MEDS ORDERED: CT SWABBABLE VALVE TRANS SET 1 EA INFUS.SET MC ONE (16:16)
[2021-08-16] MEDS ORDERED: IOHEXOL-300 100 ML VIAL IV ONE (16:16)
--- NOTE | 2021-08-16 17:00 | NUR ---
SENIOR POWER PLANT OPERATOR NOTES PATIENT NOTED WITH INCREASED WHEEZING. VS WNL. O2 AT 97% ON ROOM AIR. ORDERED CHEST X-RAY.
[2021-08-16 18:28] LABS: HEMOGLOBIN 8.9 g/dL (13.5-17.5)
--- NOTE | 2021-08-16 18:38 | NUR ---
COREMAKER FLOOR CLOSING NOTES PATIENT IN BED, AWAKE, A/O X3. PATIENT ON ROOM AIR; BREATHING EVEN WITH SOME WHEEZING PRESENT DURING EXERTION. TELE MONITOR WITH A CURRENT READING OF SR. IV ACCESS AT LFA G # 20. L GROIN ABDOMINAL ABSCESS PRESENT; AWAITING DRAINAGE. ALL NEEDS ATTENDED DURING THE DAY. SAFETY PRECAUTIONS IN PLACE; BED IN LOW POSITION AND LOCKED, RAILS UP X2, CALL LIGHT WITHIN REACH. WILL ENDORSE TO DISABILITY RATER NURSE FOR SOFIE.
--- NOTE | 2021-08-16 19:30 | NUR ---
STATE MANAGER OPENING NOTES NOTES PATIENT IN BED, AWAKE, A/O X3. PATIENT ON ROOM AIR; BREATHING EVEN WITH SOME WHEEZING PRESENT DURING EXERTION. TELE MONITOR WITH A CURRENT READING OF SR. IV ACCESS AT LFA G # 20. L GROIN ABDOMINAL ABSCESS PRESENT; AWAITING DRAINAGE. ALL NEEDS ATTENDED DURING THE DAY. SAFETY PRECAUTIONS IN PLACE; BED IN LOW POSITION AND LOCKED, RAILS UP X2, CALL LIGHT WITHIN REACH. WILL CONTINUE TO MONITOR.
[2021-08-16 20:00] VITALS: BP 156/78
[2021-08-16] MEDS: MEROPENEM 1 G in IV NS 0.9% 100 ML IV SCH (22:04)
[2021-08-17] VITALS: BP 152/60
[2021-08-17 04:00] VITALS: BP 140/56
[2021-08-17] MEDS: hydrALAZINE HCL 25 MG TABLET PO SCH (04:46)
[2021-08-17] MEDS: ALBUTEROL FS 2.5 MG/3 ML VIAL.NEB NEB PRN ×2 (05:20→10:54)
--- NOTE | 2021-08-17 05:20 | NUR ---
PATIENT ASSISTANT NOTES NOTED PT WITH INCREASED WHEEZING NOTED PT HAD A STAT CX YESTERDAY EVENING FOR WHEEZING NO INFILTRATE NOTED. PT ALSO HAS A HISTORY OF SMOKING. NOTIFIED PLUSH BRUSHER ABOUT INCREASED WHEEZING RECEIVED NEW ORDER FOR ALBUTEROL Q4 PRN FOR WHEEZING ORDER NOTED AND CARRIED OUT. RT INFORMED OF NEW ORDER WELL. WILL CONTINUE TO MONITOR
--- NOTE | 2021-08-17 07:12 | NUR ---
GATE SUPERVISOR CLOSING NOTES PATIENT IN BED, AWAKE, A/O X3. PATIENT ON ROOM AIR; BREATHING EVEN WITH SOME WHEEZING PRESENT DURING EXERTION. TELE MONITOR WITH A CURRENT READING OF SR. IV ACCESS AT LFA G # 20. L GROIN ABDOMINAL ABSCESS PRESENT HEATING PAD TO L GRAIN Q6HRS NO HEATING PAD AT THIS TIME; AWAITING DRAINAGE. ALL NEEDS ATTENDED DURING THE DAY. SAFETY PRECAUTIONS IN PLACE; BED IN LOW POSITION AND LOCKED, RAILS UP X2, CALL LIGHT WITHIN REACH. WILL ENDORSE CARE TO DAY SHIFT NURSE.
[2021-08-17 07:20] LABS: ALANINE AMINOTRANSFERASE 15 U/L (12-78); ALBUMIN 2.2 g/dL (3.4-5.0); ALKALINE PHOSPHATASE 72 U/L (46-116); ASPARTATE AMINOTRANSFERASE 33 U/L (15-37); BILIRUBIN,TOTAL 0.4 mg/dL (0.2-1.0); CARBON DIOXIDE 19 mmol/L (21-32); CHLORIDE 110 mmol/L (98-107); CREATININE 1.4 mg/dL (0.6-1.3); GLUCOSE 111 mg/dL (74-106); POTASSIUM 4.5 mmol/L (3.5-5.1); SODIUM SERUM 140 mmol/L (136-145); UREA NITROGEN, BLOOD 25 mg/dL (7-18)
[2021-08-17 07:34] LABS: CALCIUM, SERUM 7.7 mg/dL (8.5-10.1)
[2021-08-17] MEDS: PANTOPRAZOLE 40 MG TABLET.DR PO SCH (08:29)
[2021-08-17] MEDS: TAMSULOSIN 0.4 MG CAP.SR.24H PO SCH (08:29)
[2021-08-17] MEDS ORDERED: hydrALAZINE HCL 25 MG TABLET PO SCH (08:30)
[2021-08-17] MEDS: AMLODIPINE BESYLATE 10 MG TABLET PO SCH (08:30)
[2021-08-17 08:31] LABS: BASOPHILS % (AUTO) 0.5 % (0.0-2.0); EOSINOPHILS % (AUTO) 3.4 % (0.0-6.0); HEMATOCRIT 27 % (39-51); HEMOGLOBIN 8.7 g/dL (13.5-17.5); LYMPHOCYTES # (AUTO) 0.7 K/uL (0.8-4.8); LYMPHOCYTES % (AUTO) 8.5 % (20.0-44.0); MEAN CORPUSCULAR HGB CONC 33 g/dl (31.0-36.0); MEAN CORPUSCULAR VOLUME 98 fL (80-96); MONOCYTES # (AUTO) 1.1 K/uL (0.1-1.30); MONOCYTES % (AUTO) 13.9 % (2.0-12.0); NEUTROPHILS # (AUTO) 5.7 K/uL (1.8-8.9); NEUTROPHILS % (AUTO) 73.7 % (43.0-81.0); PLATELET COUNT (AUTO) 148 K/uL (150-450); RED BLOOD CELL COUNT(AUTO) 2.73 MIL/uL (4.5-6.0); WHITE BLOOD COUNT (AUTO) 7.8 K/uL (4.3-11.0)
[2021-08-17] MEDS: MEROPENEM 1 G in IV NS 0.9% 100 ML IV SCH ×2 (08:31→20:48)
[2021-08-17] MEDS: CARVEDILOL 6.25 MG TABLET PO SCH ×2 (08:31→16:51)
[2021-08-17] MEDS: hydrALAZINE HCL 50 MG TABLET PO SCH ×3 (08:31→16:51)
--- NOTE | 2021-08-17 10:30 | NUR ---
RN NOTES PATIENT WAS SEEN BY DR. GUILLORY W/ ORDERS NOTED; REQUESTED RT FOR BREATHING TX FOR PATIENT. NO COMPLAINT OF RESP DISTRESS AT THIS TIME; PATIENT STILL WORKING ON HIS BREAKFAST.
[2021-08-17 10:32] VITALS: BP 160/72
--- NOTE | 2021-08-17 10:54 | NUR ---
RN NOTES RT AT BEDSIDE FOR BREATHING TX.
[2021-08-17] MEDS: IV NS 0.9% 1,000 ML IV PRN (11:59)
[2021-08-17] MEDS: SOD FERRIC GLUC 125 MG in IV NS 0.9% 100 ML IV SCH (13:22)
--- NOTE | 2021-08-17 15:05 | NUR ---
RN NOTES ANDREAS ZHENG AT BEDSIDE TO PARTS COUNTER CLERK PATIENT VIA WHEELCHAIR FOR IR GUIDED ABSCESS DRAINAGE.
--- NOTE | 2021-08-17 15:58 | NUR ---
RN NOTES VANCO TROUGH RECEIVED AT 20; PHARMACY MADE AWARE AND WILL ADJUST DOSE OF VANCOMYCIN IV. PATIENT STILL IN PROCEDURE AT THIS TIME.
--- NOTE | 2021-08-17 16:47 | NUR ---
RN NOTES PATIENT RETURNED TO UNIT VIA WHEELCHAIR, ACCOMPANIED BY 1 PROTOTYPE SPECIAL BUILD. SPECIMEN OBTAINED.
[2021-08-17] MEDS ORDERED: VANCOMYCIN 500 MG in IV D5W 100ml IV SCH (18:00)
--- NOTE | 2021-08-17 18:39 | NUR ---
RN NOTES REQUESTED VANCOMYCIN 500MG FROM PHARMACY; WILL DELIVER MEDICATION PER PHARMACY
--- NOTE | 2021-08-17 18:47 | NUR ---
RN NOTES ATB RECEIVED AND ADMINISTERED INDICATED; INFUSING WELL.
--- NOTE | 2021-08-17 19:20 | NUR ---
RN NOTES IV LINE CHANGED TODAY BY OTTONIEL WILDLIFE REHABILITATOR RN; PREVIOUS SITE INFILTRATED. PATIENT RESTING IN BED, NOT IN ACUTE DISTRESS. DRAIN NOTED ON POSTERIOR SIDE; SEROSANGUINEOUS DRAINAGE NOTED. DUE MEDS GIVEN TODAY. SAFETY MEASURES MAINTAINED. ENDORSED TO WILDLIFE REHABILITATOR RN FOR SOFIE.
[2021-08-17 20:00] VITALS: BP 151/67
--- NOTE | 2021-08-17 20:00 | NUR ---
RECEIVED in bed alert nd orientated X3 heavenf and verbalizing his needs "Pls may I have a warm [place], cold water" Needs met pt is thankful right groin with swelling red tender when touch accordion drain activated light colored norton purulent drainage small amount patient denies pain hurts when the area is touched noted the IV left arm painful and red and swollen, Dc'D Restarted right hand g20 iv resumed
[2021-08-17 23:23] LABS: HEMOGLOBIN 8.3 g/dL (13.5-17.5)
[2021-08-18] VITALS: BP 148/60
[2021-08-18 04:00] VITALS: BP_SYST 147; BP_SYST 151; BP_DIAS 67; BP_DIAS 69
--- NOTE | 2021-08-18 04:48 | NUR ---
CLOSING NOTES: ALERT AND ORIENTATED X4 VERBALIZES HIS NEED AND IS PLEASENT AND SMILING LEFT GROINF ABCCESS S/P I & D WITH ACCORDIAN DRAIN SCANT DRAINAGE LIGHT GODWIN IN COLOR AND PURELINT IN COLOR SITE NOTED WITH SOME SWELLING NOTED AT THE BEGINNING OF THE SHIFT LEFT ARM SWOLLEN ELEVATED ON A PILLOW SWALLOWS W/O PROBLEM NEEDS ASSIST TO BE GIVEN THE WATER DENIES PAIN
[2021-08-18] MEDS: IV NS 0.9% 1,000 ML IV PRN (06:30)
--- NOTE | 2021-08-18 07:22 | NUR ---
MUNITIONS WORKER OPENING NOTES RECEIVED PT AWAKE IN BED WATCHING TV. HOB ELEVATED. A/O X3-4. ABLE TO MAKE NEEDS KNOWN, DENIES PAIN OR ANY DISCOMFORTS AT THIS TIME. ON 02 VIA N/C @ 2LPM, TOLERATING WELL, BREATHING IS EVEN AND UNLABORED. TELE-MONITOR SHOWS NSR WITH HR OF 67 AT THIS TIME, NO C/O CARDIAC DISTRESS VOICED. IV ACCESS ON RIGHT WRIST G#20 INTACT WITH IVF OF NS @7O ML/HR INFUSING WELL, NO S/S OF INFILTRATION AT SITE NOTED. ACCORDION DRAIN IN PLACE ON LEFT GROIN AND NOTED WITH THICK LIGHT BROWNISH YELLOWISH DRAINAGE NOTED. MICHELLE CATH ON LCW IN PLACED. SAFETY MEASURES ARE IN PLACED: BED IS LOCKED AND IN LOWEST POSITION, SIDE RAILS UPx2, CALL LIGHT AND BED SIDE TABLE WITHIN EASY REACH OF PT. WILL CONTINUE TO MONITOR.
[2021-08-18] MEDS: PANTOPRAZOLE 40 MG TABLET.DR PO SCH (07:28)
[2021-08-18 08:00] VITALS: BP 155/67
[2021-08-18] MEDS: CARVEDILOL 6.25 MG TABLET PO SCH ×2 (08:37→16:10)
[2021-08-18] MEDS: AMLODIPINE BESYLATE 10 MG TABLET PO SCH (08:38)
[2021-08-18] MEDS: hydrALAZINE HCL 50 MG TABLET PO SCH ×3 (08:38→16:09)
[2021-08-18] MEDS: TAMSULOSIN 0.4 MG CAP.SR.24H PO SCH (08:38)
[2021-08-18] MEDS: MEROPENEM 1 G in IV NS 0.9% 100 ML IV SCH ×2 (09:01→21:30)
[2021-08-18 12:00] VITALS: BP 133/68
[2021-08-18] MEDS: HYDROCODONE/APAP 5/325MG TABLET PO PRN (13:52)
[2021-08-18] MEDS: SOD FERRIC GLUC 125 MG in IV NS 0.9% 100 ML IV SCH (14:26)
[2021-08-18 16:00] VITALS: BP 140/81
--- NOTE | 2021-08-18 18:45 | NUR ---
HOGSHEAD OPENER CLOSING NOTES PT IN BED AWAKE AND WATCHING TV AT THIS TIME. HOB ELEVATED. A/O X3-4. ABLE TO MAKE NEEDS KNOWN. ON ROOM AIR, TOLERATING WELL WITH NO ACUTE RESPIRATORY DISTRESS NOTED DURING SHIFT. TELE-MONITOR SHOWS NSR WITH HR OF 65 AT THIS TIME, NO C/O CARDIAC DISTRESS VOICED. IV ACCESS ON RIGHT WRIST G#20 INTACT WITH IVF OF NS @7O ML/HR INFUSING WELL, NO S/S OF INFILTRATION AT SITE NOTED. ACCORDION DRAIN IN PLACE ON LEFT GROIN AND NOTED WITH THICK LIGHT BROWNISH YELLOWISH DRAINAGE NOTED. MICHELLE CATH ON LCW IN PLACED. ALL NEEDS AND CARE ATTENDED. SAFETY MEASURES KEPT IN PLACE: BED IN LOWEST LOCKED POSITION, SR UP X2, CALL LIGHT AND BEDSIDE TABLE W/IN EASY REACH OF PT. WILL ENDORSED SOFIE TO SPECIAL PROCEDURES NURSE NURSE.
[2021-08-18 20:00] VITALS: BP 155/69
--- NOTE | 2021-08-18 20:30 | NUR ---
BOX TOE STITCHER OPENING NOTES: RECEIVED PATIENT SLEEP IN BED COMFORTABLY, BED IN LOW POSITION, CALL LIGHTS WITHIN REACH, NO COMPLAIN OF PAIN AND DISCOMFORT AT THIS TIME, PATIENT A/O X3-4 ON TELE MONITORING USING BED SIDE COMMODE, WITH IV LINE AT RIGHT WRIST #20 WITH ONGOING NSS@70ML PER HOUR INFUSING WELL, PATIENT IS COOPERATIVE AND MED COMPLIANT, PATIENT KEPT CLEAN AND DRY, ALLL NEEDS MET, WILL CONTINUE TO MONITOR.
[2021-08-19] VITALS: BP 139/57
[2021-08-19 04:00] VITALS: BP 144/63
[2021-08-19] MEDS: IV NS 0.9% 1,000 ML IV PRN (04:34)
--- NOTE | 2021-08-19 07:51 | NUR ---
RIVET HAMMER MACHINE OPERATOR CLOSING NOTES: PATIENT SLEEP IN BED COMFORTABLY, BED IN LOW POSITION, CALL LIGHTS WITHIN REACH, NO COMPLAIN OF PAIN AND DISCOMFORT AT THIS TIME,PATIENT WITH IV LINE AT RIGHT WRIST WITH ONGOING NSS@70ML PER HOUR INFUSING WELL, PATIENT HAS A RIGHT GROIN ACCORDION DRAINAGE NO SIGN OF INFECTION WAS OBSERVE, KEPT CLEAN AND DRY, ALL NEEDS MET ENDORSE TO INCOMING SHIFT.
[2021-08-19 08:00] VITALS: BP 142/67
--- NOTE | 2021-08-19 08:00 | NUR ---
RN Opening Note Patient received in bed, AO x 3-4, able responds all stimuli. Skin is warm to touch, keep clean/dry, intact IV site. Remain drainage bag on left groin. Respiratory even and unlabored on room air. Kept elevated HOB for ensure air ,aspiration precaution and remains lower position of the bed. call light within reach, will continue to monitor.
[2021-08-19] MEDS ORDERED: AMLO-213 PO (09:00)
[2021-08-19] MEDS ORDERED: TAMS-12 PO (09:00)
[2021-08-19] MEDS ORDERED: LEVO750T46 PO (09:00)
[2021-08-19] MEDS ORDERED: CARV6.252 PO (09:00)
[2021-08-19] MEDS ORDERED: HYDR-4077 PO (09:00)
[2021-08-19] MEDS: PANTOPRAZOLE 40 MG TABLET.DR PO SCH (09:05)
[2021-08-19] MEDS: AMLODIPINE BESYLATE 10 MG TABLET PO SCH (09:05)
[2021-08-19] MEDS: TAMSULOSIN 0.4 MG CAP.SR.24H PO SCH (09:05)
[2021-08-19] MEDS: CARVEDILOL 6.25 MG TABLET PO SCH (09:06)
[2021-08-19] MEDS: MEROPENEM 1 G in IV NS 0.9% 100 ML IV SCH (09:17)
[2021-08-19 11:26] VITALS: BP 148/73
[2021-08-19] MEDS: hydrALAZINE HCL 50 MG TABLET PO SCH (11:26)
--- NOTE | 2021-08-19 14:00 | NUR ---
Patient discharge to home with home health, given discharge instruction include new medication, follow up surgeon and oncology MD after discharge. Patient left facility accompanied by staff to the private car. In stable condition, wound picture taken.
[2021-08-22] MEDS ORDERED: DEXAMETHASONE SOD PHOSPHATE 4 MG/ML VIAL ONE (17:17)
[2021-08-22] MEDS ORDERED: CARVEDILOL 6.25 MG TABLET ONE (17:17)
== END 2021-08-19 14:30 | disposition home health service (06) | DRG 383 ==
LOC: ER 12:05 → TRANSITION 08-12 00:07 → MED 08-12 14:16 → TELE 08-12 21:21
PROVIDERS: ADMIT Internal Medicine; ATTEND Nurse Practitioner Acute Care
PROC: 30233N1 Transfusion of Nonautologous Red Blood Cells into Peripheral Vein, Percutaneous Approach (ICD-10-PCS; principal; 2021-08-12)
PROC: 0Y963ZZ Drainage of Left Inguinal Region, Percutaneous Approach (ICD-10-PCS; 2021-08-17)
DX: L02.214 Cutaneous abscess of groin (principal); N17.0 Acute kidney failure with tubular necrosis; K68.9 Other disorders of retroperitoneum; D69.6 Thrombocytopenia, unspecified; D68.9 Coagulation defect, unspecified; E44.0 Moderate protein-calorie malnutrition; I13.0 Hypertensive heart and chronic kidney disease with heart failure and stage 1 through stage 4 chronic kidney disease, or unspecified chronic kidney disease; K40.30 Unilateral inguinal hernia, with obstruction, without gangrene, not specified as recurrent; I50.32 Chronic diastolic (congestive) heart failure; C78.00 Secondary malignant neoplasm of unspecified lung; I48.91 Unspecified atrial fibrillation; M48.54XA Collapsed vertebra, not elsewhere classified, thoracic region, initial encounter for fracture; N18.9 Chronic kidney disease, unspecified; L03.314 Cellulitis of groin; Z85.05 Personal history of malignant neoplasm of liver; Z85.038 Personal history of other malignant neoplasm of large intestine; Z79.899 Other long term (current) drug therapy; Z87.891 Personal history of nicotine dependence; Z90.49 Acquired absence of other specified parts of digestive tract; Z98.890 Other specified postprocedural states; Z79.82 Long term (current) use of aspirin; Z86.16 Personal history of COVID-19; J44.9 Chronic obstructive pulmonary disease, unspecified; Z92.21 Personal history of antineoplastic chemotherapy; D50.9 Iron deficiency anemia, unspecified; C78.7 Secondary malignant neoplasm of liver and intrahepatic bile duct; N40.0 Benign prostatic hyperplasia without lower urinary tract symptoms
CPT/HCPCS: 36415; 71045-TC; 75989; 75989-TC; 76700-TC; 76882; 80048-TC; 80053-TC; 80076-TC; 80202-TC; 81001; 82105; 82378; 82728-TC; 82784; 83540-TC; 83605-TC; 83690-TC; 83735-TC; 84100-TC; 84155; 84165; 84436-TC; 84443-TC; 84484-TC; 85025-TC; 85027-TC; 85610-TC; 85730-TC; 86140-TC; 86225; 86235; 86301; 86334; 86431-TC; 86706; 86803; 86850-TC; 87040-TC; 87070-TC; 87081-TC; 87086-TC; 87186-TC; 87340; 88305-TC; 88312-TC; C9803; G0378; J0360; J2185; J2543; J2916; J3370; J7030; J7050; J7060; P9016; Q9967

== ENCOUNTER 2021-08-22 10:24 | Inpatient (IN) | payer MEDICARE, OTHER ==
[~2021-08-22] VITALS: Ht 167.6 cm; Wt 65.8 kg
[~2021-08-22 10:24] MED LIST changes: -ASPI-1169 PO; +CARV6.252 PO; -FURO40TA5 PO; +HYDR-4077 PO; +LEVO750T46 PO
--- NOTE | 2021-08-22 10:40 | NUR ---
BIB [facility] FROM HOME C/O WEAKNESS, SOB, AND UNABLE TO GET OUT OF BED X 2 DAYS. BG 135 CHILD CENTER ASSISTANT. AAOX4, BREATHING SLIGHTLY LABORED, WHEEZING NOTED. CHANGED TO GOWN. ON MONITOR. POX 90% ON RA, BROUGHT UP TO 100% ON SIMPLE FACEMASK 5L. WILL CONTINUE TO MONITOR.
[2021-08-22] MEDS ORDERED: ALBUTEROL FS 2.5 MG/3 ML VIAL.NEB NEB ONE (11:00)
[2021-08-22] MEDS ORDERED: IPRATROPIUM NEB FS 0.5 MG/2.5 ML AMPUL.NEB NEB ONE (11:00)
--- NOTE | 2021-08-22 11:17 | NUR ---
VS STABLE. BLANKETS GIVEN. NEEDS MET
[2021-08-22 12:11] LABS: HEMATOCRIT 26 % (39-51); HEMOGLOBIN 8.7 g/dL (13.5-17.5); MEAN CORPUSCULAR HGB CONC 33 g/dl (31.0-36.0); MEAN CORPUSCULAR VOLUME 98 fL (80-96); PLATELET COUNT (AUTO) 121 K/uL (150-450); RED BLOOD CELL COUNT(AUTO) 2.66 MIL/uL (4.5-6.0); WHITE BLOOD COUNT (AUTO) 7.2 K/uL (4.3-11.0)
[2021-08-22 12:12] LABS: BASOPHILS % (AUTO) 0.3 % (0.0-2.0); EOSINOPHILS % (AUTO) 1.1 % (0.0-6.0); LYMPHOCYTES # (AUTO) 0.6 K/uL (0.8-4.8); LYMPHOCYTES % (AUTO) 8.9 % (20.0-44.0); MONOCYTES # (AUTO) 1.2 K/uL (0.1-1.30); NEUTROPHILS # (AUTO) 5.3 K/uL (1.8-8.9); NEUTROPHILS % (AUTO) 72.7 % (43.0-81.0)
[2021-08-22 12:23] LABS: ALANINE AMINOTRANSFERASE 23 U/L (12-78); ALBUMIN 2.5 g/dL (3.4-5.0); ALKALINE PHOSPHATASE 76 U/L (46-116); ASPARTATE AMINOTRANSFERASE 30 U/L (15-37); BILIRUBIN,DIRECT 0.2 mg/dL (0.0-0.2); BILIRUBIN,TOTAL 0.4 mg/dL (0.2-1.0); CALCIUM, SERUM 8.1 mg/dL (8.5-10.1); CARBON DIOXIDE 26 mmol/L (21-32); CHLORIDE 106 mmol/L (98-107); CREATININE 1.6 mg/dL (0.6-1.3); GLUCOSE 121 mg/dL (74-106); POTASSIUM 4.8 mmol/L (3.5-5.1); SODIUM SERUM 138 mmol/L (136-145); UREA NITROGEN, BLOOD 34 mg/dL (7-18)
[2021-08-22] MEDS ORDERED: AZITHROMYCIN 500 MG in IV D5W 250 ML IV ONE (12:30)
[2021-08-22] MEDS ORDERED: CEFTRIAXONE 1GM BAG (ER ONLY) 50 ML IV ONE ×2 (12:30→15:24)
--- NOTE | 2021-08-22 12:54 | NUR ---
VS STABLE, NEEDS MET
--- NOTE | 2021-08-22 13:06 | NUR ---
LAB AT BEDSIDE
[2021-08-22] MEDS ORDERED: ALBUTEROL FS 2.5 MG/3 ML VIAL.NEB ONE (13:17)
--- NOTE | 2021-08-22 13:21 | NUR ---
LAB REPORTED COVID+, DR MARCOS AWARE
--- NOTE | 2021-08-22 13:36 | NUR ---
[facility] CALLED MAINTENANCE ENGINEER PAGED.
--- NOTE | 2021-08-22 14:33 | NUR ---
ON MONITOR. NBREATHING EVEN AND UNLABORED, POX 99%
--- NOTE | 2021-08-22 14:33 | NUR ---
PT LAYING IN BED, AWAKE ALERT, BLANKETS GIVEN, PT MADE COMFORTABLE
--- NOTE | 2021-08-22 15:28 | NUR ---
VS STABLE, POX 99% ON 2L NC. WILL CONTINUE TO MONITOR.
[2021-08-22] MEDS ORDERED: STIVARGA 40 MG PO SCH (16:00)
[2021-08-22] MEDS ORDERED: ONDANSETRON HCL/PF 4 MG/2 ML VIAL IVP PRN (16:00)
[2021-08-22] MEDS ORDERED: ALBUTEROL SULFATE 8 GM HFA.AER.AD IH PRN (16:00)
[2021-08-22] MEDS ORDERED: ACETAMINOPHEN 325 MG TABLET PO PRN (16:00)
--- NOTE | 2021-08-22 16:30 | NUR ---
COVID PCR SAMPLE OBTAINED AND SENT TO LAB
[2021-08-22 16:54] LABS: C-REACTIVE PROTEIN 1.7 mg/dL (0.0-0.9)
--- NOTE | 2021-08-22 17:23 | NUR ---
[facility] PHONE [phone]
[2021-08-22] MEDS: CARVEDILOL 6.25 MG TABLET PO SCH (17:34)
[2021-08-22] MEDS: DEXAMETHASONE SOD PHOSPHATE 4 MG/ML VIAL IV SCH (17:34)
[2021-08-22] MEDS: hydrALAZINE HCL 50 MG TABLET PO SCH (18:00)
[2021-08-22] MEDS ORDERED: MEROPENEM 500 MG VIAL IV ONE (21:02)
[2021-08-22] MEDS ORDERED: HEPARIN SODIUM, PORCINE 5000 UNITS/1 ML VIAL ONE (21:02)
[2021-08-22] MEDS: HEPARIN SODIUM, PORCINE 5000 UNITS/1 ML VIAL SQ SCH (21:15)
[2021-08-22] MEDS: MEROPENEM 500 MG in IV NS 0.9% 50 ML IV SCH (21:16)
--- NOTE | 2021-08-22 21:46 | NUR ---
REPORT GIVEN TO GLORIA SALDIVAR
--- NOTE | 2021-08-22 21:50 | NUR ---
receptionist telephone operator notes Admitted a 81 y/o male a/ox3 came from home c/o general weakness ,admitted dx for covid 19 pna with respiratory failure .pts on 0xygen 2liters via nc sating 96% .on tele monitor Sr -78 , no sob no distress noted . pts nkda full code ,on cardiac low fat diet.on left ac at g#20 intact and patent ,with left chest pacemaker . skin assessment done noted with left pelvic s/p abcess with drain on , per er endorsement ,no drainage noted , scrotum redness bilateral foot foot +2 edema .v/s stable afebrile all needs attended too call light within reach .kept pts comfortable all safety measures inplace at all times , bed in low and locked position, precautionary measures observed at all times.will continue to monitor pts.
--- NOTE | 2021-08-22 22:06 | NUR ---
PATIENT TRANSFERRED UNDER ACLS
[2021-08-22 22:26] VITALS: BP 151/65
[2021-08-23] VITALS: BP 151/65
[2021-08-23 04:00] VITALS: BP 122/64
[2021-08-23 06:54] LABS: ALANINE AMINOTRANSFERASE 14 U/L (12-78); ALBUMIN 2.1 g/dL (3.4-5.0); ASPARTATE AMINOTRANSFERASE 19 U/L (15-37); BILIRUBIN,TOTAL 0.3 mg/dL (0.2-1.0); CALCIUM, SERUM 7.8 mg/dL (8.5-10.1); CARBON DIOXIDE 22 mmol/L (21-32); CHLORIDE 105 mmol/L (98-107); CREATININE 1.6 mg/dL (0.6-1.3); GLUCOSE 130 mg/dL (74-106); MAGNESIUM 2.2 mg/dL (1.8-2.4); PHOSPHORUS 3.6 mg/dL (2.5-4.9); POTASSIUM 4.6 mmol/L (3.5-5.1); SODIUM SERUM 137 mmol/L (136-145); TOTAL PROTEIN, SERUM 6.7 g/dL (6.4-8.2); UREA NITROGEN, BLOOD 36 mg/dL (7-18)
[2021-08-23 07:08] LABS: BASOPHILS % (AUTO) 0.1 % (0.0-2.0); EOSINOPHILS % (AUTO) 0.1 % (0.0-6.0); HEMATOCRIT 29 % (39-51); HEMOGLOBIN 9.5 g/dL (13.5-17.5); LYMPHOCYTES # (AUTO) 0.4 K/uL (0.8-4.8); LYMPHOCYTES % (AUTO) 11.5 % (20.0-44.0); MEAN CORPUSCULAR HGB CONC 34 g/dl (31.0-36.0); MEAN CORPUSCULAR VOLUME 97 fL (80-96); MONOCYTES # (AUTO) 0.1 K/uL (0.1-1.30); NEUTROPHILS # (AUTO) 2.8 K/uL (1.8-8.9); NEUTROPHILS % (AUTO) 85.3 % (43.0-81.0); PLATELET COUNT (AUTO) 143 K/uL (150-450); RED BLOOD CELL COUNT(AUTO) 2.92 MIL/uL (4.5-6.0); WHITE BLOOD COUNT (AUTO) 3.3 K/uL (4.3-11.0)
--- NOTE | 2021-08-23 07:23 | NUR ---
manager telemetry notes Received pts in bed a/ox4 on 2liters of 02, sating 99% no sob no distress noted . no danitza at this time , will endorse to rn day shift for continuity of care.
--- NOTE | 2021-08-23 07:23 | NUR ---
OPENING RN NOTES RECEIVED PT IN BED RESTING, PT IS A/O X 3. NOTED SURGICAL DRAIN NEAR L PELVIC AREA. PT HAS L AC #20. PT ON 2L NC SATING AT 96%. ALL SAFETY MEASURES IN PLACE, BED IN LOWEST LOCKED POSITION, SIDE RAILS UP X 3, CALL LIGHT WITHIN REACH. WILL CONTINUE TO MONITOR THROUGHOUT SHIFT.
[2021-08-23 07:54] LABS: ALKALINE PHOSPHATASE 65 U/L (46-116)
[2021-08-23 08:00] VITALS: BP 134/56
[2021-08-23] MEDS: DEXAMETHASONE SOD PHOSPHATE 4 MG/ML VIAL IV SCH ×2 (08:51→16:44)
[2021-08-23] MEDS: TAMSULOSIN 0.4 MG CAP.SR.24H PO SCH (08:51)
[2021-08-23] MEDS: hydrALAZINE HCL 50 MG TABLET PO SCH ×3 (08:52→16:45)
[2021-08-23] MEDS: AMLODIPINE BESYLATE 10 MG TABLET PO SCH (08:52)
[2021-08-23] MEDS: CARVEDILOL 6.25 MG TABLET PO SCH ×2 (08:52→16:45)
[2021-08-23] MEDS: HEPARIN SODIUM, PORCINE 5000 UNITS/1 ML VIAL SQ SCH ×2 (08:53→22:00)
[2021-08-23] MEDS: MEROPENEM 500 MG in IV NS 0.9% 50 ML IV SCH ×2 (08:56→21:19)
[2021-08-23 10:07] LABS: THYROID STIMULATING HORMONE 4.443 uIU/mL (0.358-3.74)
[2021-08-23 12:00] VITALS: BP 130/60
[2021-08-23 16:00] VITALS: BP 135/60
[2021-08-23] MEDS: AZITHROMYCIN 250 MG TABLET PO SCH (16:46)
--- NOTE | 2021-08-23 18:34 | NUR ---
RN CLOSING NOTES PT IS RESTING IN BED, PT REMAINS A/O X3-4, TOLERATED ROOM AIR ALL SHIFT WITH 02 SAT BETWEEN 96-98%. PT HAS PIGTAIL CATH FROM PREVIOUS VISIT. IV ACCESS ON L AC #20 FLUSHES AND PATENT. ALL TREATMENTS TOLERATED WELL THROUGHOUT SHIFT. ALL SAFETY MEASURES ARE IN PLACE, BED IN LOWEST LOCKED POSITION, CALL LIGHT WITHIN REACH, SIDE RAILS UP X 3. CALL LIGHT WITHIN REACH. WILL ENDORSE TO COMMUNITY NURSE NURSE FOR SOFIE.
[2021-08-23 20:00] VITALS: BP 100/52
--- NOTE | 2021-08-23 20:34 | NUR ---
CONTINUITY OF CARE Patient in bed, A/O x3 conversant. Tolerating room air, denies SOB. Swelling scrotum area. Pigtail drainage catheter clamped present in left scrotum. Covid rapid test (+) and PCR test pending result. Will cont to provide care.
--- NOTE | 2021-08-23 22:03 | NUR ---
ANTICOAGULANT H/H 9.12/30 PLT 143 Heparin injection given co-signed by JANNA Arrigaa.
[2021-08-24 01:08] VITALS: BP 130/45
[2021-08-24 05:51] VITALS: BP 141/58
--- NOTE | 2021-08-24 06:01 | NUR ---
END OF SHIFT REPORT Patient in bed, A/O x3. Oxygen saturation in high 90's on room air, denies SOB. Swelling and redness on scrotal area, no c/o pain. On IV abx. Afebrile. Pigtail drainage catheter with clean and dry dressing in place. Covid rapid test (+) Contact/Droplet precaution maintained. Will endorse to oncoming RN.
--- NOTE | 2021-08-24 07:17 | NUR ---
OPENING RN NOTES RECEIVED PT IN BED RESTING, PT IS A/O X 3. NOTED PIGTAIL CATH NEAR L PELVIC AREA. PT HAS L AC #20. PT ON RA SATING AT 96%. NO SOB OR DISTRESS NOTED AT THIS TIME. ALL SAFETY MEASURES IN PLACE, BED IN LOWEST LOCKED POSITION, SIDE RAILS UP X 3, CALL LIGHT WITHIN REACH. WILL CONTINUE TO MONITOR THROUGHOUT SHIFT.
--- NOTE | 2021-08-24 07:30 | NUR ---
ELECTRICIAN WIRING OPENING NOTES RECEIVED PT IN BED RESTING, PT IS A/O X 3. ON ROOM AIR TOLERATING WELL. NO SOB NOTED. NOT IN DISTRESS. WITH NO COMPLAINTS OF PAIN OR DISCOMFORT AT THIS TIME. WITH IV ACCESS AT RIGHT AC G22, SALINE LOCKED, PATENT AND INTACT. WITH PIGTAIL CATHETER DRAINAGE CATH IN PLACED AT LEFT SCROTUM. ON TELE MONITOR CURRENTLY READING SINUS RHYTHM AT 74BPM. SAFETY MEASURES IN PLACED. CALL LIGHT WITHIN REACH. BED ON LOWEST LOCKED POSITION, SIDE RAILS UP X2. WILL CONTINUE TO MONITOR.
[2021-08-24 07:33] LABS: BASOPHILS % (AUTO) 0.1 % (0.0-2.0); HEMATOCRIT 27 % (39-51); HEMOGLOBIN 9.1 g/dL (13.5-17.5); LYMPHOCYTES # (AUTO) 0.4 K/uL (0.8-4.8); LYMPHOCYTES % (AUTO) 11.4 % (20.0-44.0); MEAN CORPUSCULAR HGB CONC 34 g/dl (31.0-36.0); MEAN CORPUSCULAR VOLUME 98 fL (80-96); MONOCYTES # (AUTO) 0.3 K/uL (0.1-1.30); MONOCYTES % (AUTO) 7.2 % (2.0-12.0); NEUTROPHILS # (AUTO) 2.9 K/uL (1.8-8.9); NEUTROPHILS % (AUTO) 81.3 % (43.0-81.0); PLATELET COUNT (AUTO) 128 K/uL (150-450); RED BLOOD CELL COUNT(AUTO) 2.79 MIL/uL (4.5-6.0); WHITE BLOOD COUNT (AUTO) 3.6 K/uL (4.3-11.0)
[2021-08-24 07:39] LABS: CALCIUM, SERUM 7.8 mg/dL (8.5-10.1); CARBON DIOXIDE 24 mmol/L (21-32); CHLORIDE 105 mmol/L (98-107); CREATININE 1.7 mg/dL (0.6-1.3); GLUCOSE 142 mg/dL (74-106); MAGNESIUM 2.5 mg/dL (1.8-2.4); PHOSPHORUS 3.6 mg/dL (2.5-4.9); POTASSIUM 4.5 mmol/L (3.5-5.1); SODIUM SERUM 137 mmol/L (136-145); UREA NITROGEN, BLOOD 49 mg/dL (7-18)
[2021-08-24 08:00] VITALS: BP 140/69
[2021-08-24] MEDS: HEPARIN SODIUM, PORCINE 5000 UNITS/1 ML VIAL SQ SCH (09:00)
[2021-08-24] MEDS: MEROPENEM 500 MG in IV NS 0.9% 50 ML IV SCH ×2 (10:12→21:14)
[2021-08-24] MEDS: DEXAMETHASONE SOD PHOSPHATE 10 MG/ML VIAL IV SCH ×2 (10:15→17:11)
--- NOTE | 2021-08-24 10:15 | NUR ---
RN NOTES PATIENT WAS SEEN BY JANNA INFANTE TRYING TO WALK TO REACH THE BEDSIDE COMMODE AND FELL. ASSISTED PATIENT TO BED WITH COMPLAINTS OF PAIN AT THE LEFT HIP. REPORTED TO DR. DAUGHERTY AND ORDERED PATIENT FOR XRAY.
[2021-08-24] MEDS: TAMSULOSIN 0.4 MG CAP.SR.24H PO SCH (10:16)
[2021-08-24] MEDS: CARVEDILOL 6.25 MG TABLET PO SCH ×2 (10:19→17:11)
[2021-08-24] MEDS: AMLODIPINE BESYLATE 10 MG TABLET PO SCH (10:19)
[2021-08-24] MEDS: hydrALAZINE HCL 50 MG TABLET PO SCH ×3 (10:20→17:12)
[2021-08-24 12:00] VITALS: BP 137/68
[2021-08-24] MEDS ORDERED: HYDROCODONE/APAP 5/325MG TABLET PO PRN ×2 (14:00→17:00)
--- NOTE | 2021-08-24 15:44 | NUR ---
patient s/p fall ,hip xray relayed to md,son unable to reach left message,john paul wilson notified.
[2021-08-24 16:00] VITALS: BP 144/71
--- NOTE | 2021-08-24 16:21 | NUR ---
evert talk to the patient regarding hip surgery.patient would like to talk to surgeon but agreed to have the surgery will ff up for consent.
--- NOTE | 2021-08-24 16:57 | NUR ---
senior telecommunications technician note dr velez anesthesiologist called with order type and screen ,2 units prbc on hold and education research analyst clearance ,spoke with Cristian jaimes stated that walker will dropped by ,will f\u
--- NOTE | 2021-08-24 16:57 | NUR ---
PATIENT SIGNED CONSENT FOR SURGERY.LEFT MESSAGE AGAIN TO THE SON.
[2021-08-24] MEDS: AZITHROMYCIN 250 MG TABLET PO SCH (17:12)
--- NOTE | 2021-08-24 18:58 | NUR ---
DEVELOPER RELATIONS MANAGER CLOSING NOTES PT IN BED RESTING, PT IS A/O X 3. ON ROOM AIR TOLERATING WELL. NO SOB NOTED. NOT IN DISTRESS. WITH IV ACCESS AT RIGHT AC G22, SALINE LOCKED, PATENT AND INTACT. WITH PIGTAIL CATHETER DRAINAGE CATH IN PLACED AT LEFT SCROTUM. WITH CLARKE CATHETER IN PLACED. ON TELE MONITOR CURRENTLY READING SINUS RHYTHM AT 80BPM. SAFETY MEASURES IN PLACED. CALL LIGHT WITHIN REACH. BED ON LOWEST LOCKED POSITION, SIDE RAILS UP X2. WILL ENDORSE TO NEXT SHIFT.
--- NOTE | 2021-08-24 19:15 | NUR ---
RN NOTES RECEIVED REPORT FROM MORNING RN. PATIENT A/O X3 ABLE TO MAKE NEEDS KNOWN WITH PERIODS OF CONFUSION. WITH OXYGEN INHALATION AT 2LPM VIA NC TOLERATING WELL SATING 96%. NO SOB NO DISTRESS NOTED AT THIS TIME. WITH IV ACCESS AT R AC #22 PATENT FLUSHES WELL. WITH CLARKE CATHETER CONNECTED TO URINE BAG PATENT DRAINING WELL WITH YELLOWISH URINE OUTPUT. WITH PIGTAIL DRAINAGE INTACT. VITAL SIGNS TAKEN AND RECORDED. PATIENT IS S/P FALL FOR POSS. L HIP HEMIARTHROPLASTY VS. TOTAL HIP ARTHROPLASTY. CONSENT SIGN BY THE PATIENT @ CHART. ALL SAFETY MEASURES IN PLACE AT ALL TIMES. HOB ELEVATED. CALL LIGHT WITHIN REACH BED ON LOWEST POSITION AND LOCKED. BOTH SIDE RAILS UP FOR SAFETY BED ALARM ON. WILL CLOSELY MONITOR THE PATIENT.
[2021-08-24 20:00] VITALS: BP 147/69
--- NOTE | 2021-08-24 20:00 | NUR ---
RN NOTES SEEN AND EXAMINED BY DR RONY HENDRIX ORTHO SURGEON. SPOKE WITH THE PATIENT EXPLAINED RISK AND BENEFITS OF THE OPERATION. PATIENT STILL DECIDED TO GO ON SURGERY. TRIED MANY TIMES TO CONTACT HIS FAMILY REGARDING THE PROCEDURE STILL NO ANSWER. WILL TRY AGAIN LATER TO CALL HIS FAMILY MEMBER.
--- NOTE | 2021-08-24 22:40 | NUR ---
RN NOTES ELINA PINEDO SHAPING MACHINE TENDER INSERTED RIGHT UPPER ARM MIDLINE #18 PATENT FLUSHES WELL. WILL CONTINUE TO MONITOR.
[2021-08-25] VITALS (10 sets, daily range): BP systolic 111–137; BP diastolic 50–69
--- NOTE | 2021-08-25 06:49 | NUR ---
RN NOTES PATIENT REMAINS STABLE THIS SHIFT NO DISTRESS NO SOB NOTED. ALL DUE MEDS GIVEN ORDERED. STILL ON OXYGEN INHALATION AT 2LPM VIA NASAL CANULA. CLARKE CATHETER INTACT DRAINING WELL. ALL NEEDS ATTENDED PROMPTLY. STILL TRIED TO CALL HIS FAMILY REGARDING THE SURGERY THIS MORNING STILL NO CALL BACK.ALL SAFETY MEASURES IN PLACE AT ALL TIMES. SIDE RAILS UP FOR SAFETY. CALL LIGHT WITHIN REACH. HOB ELEVATED. BED ON LOWEST POSITION AND LOCKED. FOR SURGERY TODAY. CONSENT @ CHART. WILL ENDORSED TO MORNING RN FOR SOFIE
[2021-08-25] MEDS ORDERED: ROCURONIUM BROMIDE 50 MG/5 ML ONE ×2 (07:26→07:27)
[2021-08-25] MEDS ORDERED: FENTANYL PF 250MCG/5ML AMPUL ONE (07:26)
--- NOTE | 2021-08-25 07:30 | NUR ---
RN MORNING NOTE PT OBSERVED IN BED SLEEPING WITH HOB FLAT. PT ON 2L NC SAT 98% TOLERATING WELL WITH NO LABORED BREATHING OR DISTRESS. PT A/OX3. PT HAS A CLARKE DRAINING URINE TO GRAVITY. PT NPO AT THIS TIME AND WILL HAVE SURGERY THIS MORNING. IV ACCESS L AC 22G AND R UA MIDLINE 18G. BED IS LOCKED IN LOWEST POSITION X2 GUARD RAILS UP, CALL CRUZ WITHIN REACH, WILL CONTINUE TO MONITOR THIS SHIFT.
[2021-08-25 08:05] LABS: BASOPHILS % (AUTO) 0.1 % (0.0-2.0); HEMATOCRIT 28 % (39-51); HEMOGLOBIN 9.3 g/dL (13.5-17.5); LYMPHOCYTES # (AUTO) 0.4 K/uL (0.8-4.8); LYMPHOCYTES % (AUTO) 5.2 % (20.0-44.0); MEAN CORPUSCULAR HGB CONC 33 g/dl (31.0-36.0); MEAN CORPUSCULAR VOLUME 98 fL (80-96); NEUTROPHILS # (AUTO) 5.6 K/uL (1.8-8.9); NEUTROPHILS % (AUTO) 80.7 % (43.0-81.0); PLATELET COUNT (AUTO) 126 K/uL (150-450); RED BLOOD CELL COUNT(AUTO) 2.84 MIL/uL (4.5-6.0)
--- NOTE | 2021-08-25 08:05 | NUR ---
RN NOTE PT HAS LEFT THE FLOOR FOR SURGERY. PT STABLE AT THIS TIME.
[2021-08-25 08:35] LABS: CALCIUM, SERUM 8.3 mg/dL (8.5-10.1); CARBON DIOXIDE 23 mmol/L (21-32); CHLORIDE 105 mmol/L (98-107); CREATININE 1.6 mg/dL (0.6-1.3); GLUCOSE 130 mg/dL (74-106); MAGNESIUM 2.7 mg/dL (1.8-2.4); PHOSPHORUS 3.9 mg/dL (2.5-4.9); POTASSIUM 4.8 mmol/L (3.5-5.1); SODIUM SERUM 136 mmol/L (136-145); UREA NITROGEN, BLOOD 51 mg/dL (7-18)
[2021-08-25] MEDS ORDERED: POLYMYXIN B SULFATE 500,000 UNITS ONE (08:47)
[2021-08-25] MEDS ORDERED: BUPIVACAINE 0.5 % PF 150 MG/30 ML VIAL ONE (08:47)
[2021-08-25] MEDS ORDERED: BUPIVACAINE 0.25% 75 MG/30 ML VIAL ONE (08:56)
[2021-08-25] MEDS: hydrALAZINE HCL 50 MG TABLET PO SCH ×3 (09:00→16:34)
[2021-08-25] MEDS: TAMSULOSIN 0.4 MG CAP.SR.24H PO SCH (09:00)
[2021-08-25] MEDS ORDERED: TRANEXAMIC ACID 3,000 MG in SODIUM CHLORIDE IRRIG SOLUTION 70 ML IR ONE (09:00)
[2021-08-25] MEDS: AMLODIPINE BESYLATE 10 MG TABLET PO SCH (09:00)
[2021-08-25] MEDS: CARVEDILOL 6.25 MG TABLET PO SCH ×2 (09:00→16:35)
[2021-08-25] MEDS: ENOXAPARIN SODIUM 40 MG/0.4 ML DISP.SYRIN SQ SCH (10:30)
[2021-08-25 10:46] LABS: HEMOGLOBIN 7.5 g/dL (13.5-17.5)
--- NOTE | 2021-08-25 11:05 | NUR ---
RN NOTE PT RETURNED TO [facility] FROM SURGERY. PT VS WNL AMD STABLE AT THIS TIME. MORNING PO MEDS HELD DUE TO NPO STATUS, PT CURRENTLY SLEEPING AND WILL CONTINUE TO HOLD PO MED UNTIL REASSESSED. WILL ADMINISTER IV DECADRON AND IV MARY. WILL CONTINUE TO MONITOR.
--- NOTE | 2021-08-25 13:30 | NUR ---
RN NOTE PT IS POST-OP AND CURRENTLY A/OX1 AND UNABLE TO TAKE PO MEDS AT THIS TIME.
[2021-08-25] MEDS ORDERED: IV NS 0.9% 1,000 ML BAG IV ONE (15:22)
[2021-08-25] MEDS ORDERED: NEOSTIGMINE METHYLSULFATE INJ 1 MG/ML VIAL IV ONE (15:22)
[2021-08-25] MEDS ORDERED: DEXAMETHASONE SOD PHOSPHATE 4 MG/ML VIAL IV ONE (15:22)
[2021-08-25] MEDS ORDERED: ETOMIDATE 2 MG/ML VIAL IV ONE (15:22)
[2021-08-25] MEDS ORDERED: LIDOCAINE HCL/PF 2 % 5ML SDV 5 ML VIAL IV ONE (15:22)
[2021-08-25] MEDS ORDERED: PHENYLEPHRINE 10 MG/ML VIAL IV ONE (15:22)
[2021-08-25] MEDS ORDERED: IV SET PRIMARY 1 EA INFUS.SET MC ONE (15:22)
[2021-08-25] MEDS ORDERED: ONDANSETRON HCL/PF 4 MG/2 ML VIAL IVP ONE (15:22)
[2021-08-25] MEDS ORDERED: CEFAZOLIN 1 GM VIAL IV ONE (15:22)
[2021-08-25] MEDS ORDERED: GLYCOPYRROLATE 0.2 MG/ML VIAL IV ONE (15:22)
[2021-08-25 15:50] LABS: BILIRUBIN,URINE NEGATIVE (NEGATIVE); COLOR,URINE YELLOW (YELLOW); LEUKOCYTE ESTERASE ,URINE NEGATIVE (NEGATIVE); NITRITE, URINE NEGATIVE (NEGATIVE); PROTEIN,URINE NEGATIVE (NEGATIVE); UGLUCOSE NEGATIVE (NEGATIVE); UROBILINOGEN,URINE 0.2 EU/dL (0.2)
[2021-08-25] MEDS: MEROPENEM 500 MG in IV NS 0.9% 50 ML IV SCH ×2 (15:59→21:09)
[2021-08-25] MEDS: AZITHROMYCIN 250 MG TABLET PO SCH (16:00)
[2021-08-25] MEDS: DEXAMETHASONE SOD PHOSPHATE 10 MG/ML VIAL IV SCH ×2 (16:00→17:00)
--- NOTE | 2021-08-25 16:06 | NUR ---
RN NOTE PT IS POST-OP AND CURRENTLY A/OX1 AND UNABLE TO TAKE PO MEDS AT THIS TIME.
--- NOTE | 2021-08-25 16:36 | NUR ---
JANNA NOTE PT IS POST-OP AND CURRENTLY A/OX1 AND UNABLE TO TAKE PO MEDS AT THIS TIME. Addendum: 08/25/21 at 1734 by LIZZIE HERNANDEZ RN DECADRON GIVEN AT 1600 AFTER RETURNING FROM SURGERY AND WAITING FOR BLOOD TRANSFUSION TO FINISH. WILL HOLD 1700 DOSE.
--- NOTE | 2021-08-25 20:30 | NUR ---
NURSE WOUND CARE OPENING NOTES: RECEIVED PATIENT AWAKE IN BED, BED IN LOW POSITION, CALL LIGHTS WITHIN REACH, NO COMPLAIN OF PAIN AND DISCOMFORT AT THIS TIME, PATIENT ON TELE MONITORING SR 79, PATIENT IS S/P HIP SURGERY, ON ABDUCTOR PILLOW PLACE AT ALL TIME, PATIENT HAS RAC#18 AND RU MIDLINE SL, ON O2 INHALATION VIA NASAL CANNULA AT 2LPM SATURATING WELL, PATIENT KEPT CLEAN AND DRY, ALL NEEDS MET,WILL CONTINUE TO MONITOR.
[2021-08-26] VITALS (8 sets, daily range): BP systolic 109–137; BP diastolic 51–80
--- NOTE | 2021-08-26 06:55 | NUR ---
RN CLOSING NOTES: PATIENT SLEEP IN BED COMFORTABLY, BED IN LOW POSITION, CALL LIGHTS WITHIN REACH, NO COMPLAIN OF PAIN AND DISCOMFORT AT THIS TIME, PATIENT KEPT CLEAN AND DRY ALL NEEDS MET ENDORSE TO INCOMING SHIFT
--- NOTE | 2021-08-26 07:42 | NUR ---
RN NOTE PATIENT RECEIVED IN BED, ON 2L O2 NC WITH NO SIGNS OF LABORED BREATHING AT THIS TIME. CLARKE CATH IN PLACE. BILATERAL SOFT WRIST RESTRAINS ON, SKIN WARM AND INTACT. RIGHT AC 22G SL AND RIGHT UA MIDLINE 18G IN PLACE. BED LOCKED AND IN LOWEST POSITION, CALL LIGHT WITHIN REACH, 2 SIDE RAILS UP. WILL CONTINUE TO MONITOR.
[2021-08-26] MEDS: MEROPENEM 500 MG in IV NS 0.9% 50 ML IV SCH ×2 (08:45→21:21)
[2021-08-26] MEDS: hydrALAZINE HCL 50 MG TABLET PO SCH ×3 (08:45→16:53)
[2021-08-26] MEDS: TAMSULOSIN 0.4 MG CAP.SR.24H PO SCH (08:45)
[2021-08-26] MEDS: DEXAMETHASONE SOD PHOSPHATE 10 MG/ML VIAL IV SCH ×2 (08:45→16:55)
[2021-08-26] MEDS: CARVEDILOL 6.25 MG TABLET PO SCH ×2 (08:46→16:53)
[2021-08-26] MEDS: AMLODIPINE BESYLATE 10 MG TABLET PO SCH (08:47)
[2021-08-26] MEDS: ENOXAPARIN SODIUM 40 MG/0.4 ML DISP.SYRIN SQ SCH (09:40)
--- NOTE | 2021-08-26 09:40 | NUR ---
RN NOTE PATIENT NON-COOPERATIVE WITH SOME CONFUSION AT THIS TIME. PATIENT REFUSING TO WORK WITH PT AND REFUSING HIS LOVENOX INJECTION. WILL CONTINUE TO MONITOR.
[2021-08-26 09:58] LABS: IRON, SERUM 45 ug/dl (50-175); TOTAL IRON BINDING CAPACITY 133 ug/dl (250-450)
[2021-08-26 10:11] LABS: CALCIUM, SERUM 7.8 mg/dL (8.5-10.1); CARBON DIOXIDE 22 mmol/L (21-32); CHLORIDE 110 mmol/L (98-107); CREATININE 2.2 mg/dL (0.6-1.3); GLUCOSE 114 mg/dL (74-106); PHOSPHORUS 5.6 mg/dL (2.5-4.9); SODIUM SERUM 142 mmol/L (136-145); UREA NITROGEN, BLOOD 75 mg/dL (7-18)
[2021-08-26 10:31] LABS: FERRITIN 2383 ng/mL (8-388)
--- NOTE | 2021-08-26 11:09 | NUR ---
RN NOTE PATIENT REFUSING LAB DRAW FOR REPEAT. REQUEST FOR SUPERINTENDENT TRACK TO RETURN LATER. WILL CONTINUE TO MONITOR.
[2021-08-26] MEDS ORDERED: IV NS 0.9% 1,000 ML IV PRN (11:30)
[2021-08-26] MEDS ORDERED: SODIUM POLYSTYRENE SULFONATE 15 G/60 ML BOTTLE PO ONE ×2 (11:30→19:30)
[2021-08-26] MEDS ORDERED: LORAZEPAM INJ 2 MG/ML VIAL IV ONE (11:45)
--- NOTE | 2021-08-26 11:48 | NUR ---
RN NOTE PATIENT AGITATED, REMOVING ABDUCTION PILLOW WITH HIS LEGS. ATIVAN 0.5MG GIVEN. WILL CONTINUE TO MONITOR.
--- NOTE | 2021-08-26 12:18 | NUR ---
RN NOTE PATIENT STILL REFUSING MEDICATION AND VITAL SIGNS. LESS AGITATED AT THIS TIME. WILL CONTINUE TO MONITOR.
[2021-08-26 13:48] LABS: BASOPHILS % (AUTO) 0.1 % (0.0-2.0); LYMPHOCYTES # (AUTO) 0.3 K/uL (0.8-4.8); LYMPHOCYTES % (AUTO) 4.8 % (20.0-44.0); MEAN CORPUSCULAR HGB CONC 34 g/dl (31.0-36.0); MEAN CORPUSCULAR VOLUME 95 fL (80-96); MONOCYTES # (AUTO) 0.6 K/uL (0.1-1.30); MONOCYTES % (AUTO) 8.6 % (2.0-12.0); NEUTROPHILS # (AUTO) 5.9 K/uL (1.8-8.9); NEUTROPHILS % (AUTO) 86.5 % (43.0-81.0); PLATELET COUNT (AUTO) 73 K/uL (150-450); WHITE BLOOD COUNT (AUTO) 6.8 K/uL (4.3-11.0)
[2021-08-26 13:49] LABS: RED BLOOD CELL COUNT(AUTO) 1.71 MIL/uL (4.5-6.0)
[2021-08-26 13:51] LABS: HEMATOCRIT 16 % (39-51); HEMOGLOBIN 5.4 g/dL (13.5-17.5)
--- NOTE | 2021-08-26 13:55 | NUR ---
RN NOTE CRITICAL LAB VALUES OF HEMOGLOBIN 5.4 AND HEMATOCRIT 16 REPORTED TO CONOR DAUGHERTY. ORDER FOR 2 UNITS PRBC. WILL CONTINUE TO MONITOR.
[2021-08-26] MEDS ORDERED: INSULIN REGULAR, HUMAN 100 UNIT/ML 10 ML VIAL IV ONE (14:30)
[2021-08-26] MEDS ORDERED: DEXTROSE 50%-WATER 50 ML DISP.SYRIN IVP ONE (14:30)
[2021-08-26 16:53] LABS: LYMPHOCYTES % (MANUAL) 8 % (16-48); MONOCYTES % (MANUAL) 4 % (0-11.0); NEUTROPHILS % (MANUAL) 88 (42-76)
[2021-08-26] MEDS ORDERED: AZITHROMYCIN 500 MG in IV D5W 250 ML IV ONE (17:00)
--- NOTE | 2021-08-26 17:05 | NUR ---
RN NOTE BLOOD TRANSFUSION STARTED, NO SIGNS OF ADVERSE EFFECT OR DISTRESS AT THIS TIME. VITAL SIGNS STABLE. WILL CONTINUE TO MONITOR.
--- NOTE | 2021-08-26 18:48 | NUR ---
RN CLOSING NOTE PATIENT REMAINS IN BED, ON 2L O2 NC WITH NO SIGNS OF LABORED BREATHING AT THIS TIME. CLARKE CATH IN PLACE. BILATERAL SOFT WRIST RESTRAINS ON, SKIN WARM AND INTACT. PRBC TRANSFUSION RUNNING THROUGH RIGHT UA MIDLINE AT THIS TIME, NO SIGNS OF ADVERSE REACTIONS. ALL NEEDS ATTENDED DURING SHIFT. RIGHT AC 22G SL AND RIGHT UA MIDLINE 18G IN PLACE. BED LOCKED AND IN LOWEST POSITION, CALL LIGHT WITHIN REACH, 2 SIDE RAILS UP. WILL ENDORSE TO CLAY CARMAN NURSE.
[2021-08-26 18:59] LABS: CALCIUM, SERUM 7.9 mg/dL (8.5-10.1); CREATININE 2.2 mg/dL (0.6-1.3); GLUCOSE 115 mg/dL (74-106); UREA NITROGEN, BLOOD 74 mg/dL (7-18)
[2021-08-26 19:19] LABS: CARBON DIOXIDE 23 mmol/L (21-32); CHLORIDE 111 mmol/L (98-107); POTASSIUM 6.1 mmol/L (3.5-5.1); SODIUM SERUM 142 mmol/L (136-145)
--- NOTE | 2021-08-26 19:30 | NUR ---
ELECTRICAL INSTALLATION INSPECTOR OPENING NOTES: RECEIVED PATIENT AWAKE IN BED, BED IN LOW POSITION, CALL LIGHTS WITHIN REACH, NO COMPLAIN OF PAIN AND DISCOMFORT AT THIS TIME, PATIENT ON TELE MONITORING SR 61, PATIENT IS S/P HIP SURGERY, ON ABDUCTOR PILLOW PLACE AT ALL TIME, PATIENT HAS RAC#18 AND RU MIDLINE SL, ON O2 INHALATION VIA NASAL CANNULA AT 4LPM SATURATING WELL AT 99%. PATIENT WAS RECEIVING ONE UNIT OF RBC PACKED, THE SECOND UNIT OF BLOOD WAS NOT AVAILABLE AT THE LAB. AM NURSE ENDORSED THAT ONCE LAB HAS THE BLOOD AVAILABLE THEY WILL CONTACT US SO I CAN TRANSFUSE THE SECOND UNIT. WILL CONTACT LAB TO FOLLOW UP. PATIENTS POTASSIUM LEVEL 6.1, AM NURSE ENDORSED THAT HE REFUSED KAYEXALATE.WILL TRY TO EDUCATE PATIENT TO TAKE KAYEXALATE. WILL CONTINUE TO MONITOR PATIENT.
--- NOTE | 2021-08-26 20:20 | NUR ---
RN NOTE CONTACTED FOR PATIENTS POTASSIUM BEING HIGH 6.1. WILL WAIT FOR RESPONSE BACK FROM PHYSICIAN.
--- NOTE | 2021-08-26 20:39 | NUR ---
RN NOTE CALLED DR. FLORES FOR PATIENTS POTASSIUM LEVEL BEING 6.1. ORDERED TO GIVE THE KAYEXALATE, IF PATIENT REFUSES MEDICATION, TO CHECK FOR BLOOD SUGAR AND CALL HER FOR FURTHER ORDERS FROM THERE.
--- NOTE | 2021-08-26 21:20 | NUR ---
RN NOTE ADMINISTERED KAYEXALATE ORDERED PER . PATIENT DID NOT REFUSE MEDICATION.
[2021-08-27] VITALS (9 sets, daily range): BP systolic 131–161; BP diastolic 51–81
--- NOTE | 2021-08-27 00:42 | NUR ---
RN NOTE LAB CALLED, SAYING THAT THEIR SYSTEM IS SHOWING THAT 2 UNITS OF BLOOD WAS GIVEN OUT FOR THIS PATIENT. I EXPLAINED ONCE MORE THAT ONLY ONE UNIT WAS TRANSFUSED TODAY, AND THAT WE ARE STILL WAITING ON THE SECOND UNIT FROM THEM.THEY SAID THEY WILL LOOK INTO IT ONCE MORE AND CALL BACK. WILL CONTINUE TO FOLLOW UP WITH THEM REGARDING THE ORDER.
--- NOTE | 2021-08-27 07:26 | NUR ---
RN OPENING NOTE- PATIENT AWAKE IN BED, BED IN LOW POSITION, CALL LIGHTS WITHIN REACH, NO COMPLAINT OF PAIN AT THIS TIME, PATIENT ON TELE MONITORING SR 78, PATIENT IS S/P HIP SURGERY, ABDUCTION PILLOW PLACE AT ALL TIMES, PATIENT HAS RAC#18 AND RU MIDLINE SL, ON O2 INHALATION VIA NASAL CANNULA AT 4LPM SATURATING WELL AT 97%. PATIENT WAS RECEIVING ONE UNIT OF RBC PACKED, THE SECOND UNIT OF BLOOD IS NOW AVAILABLE. WILL INITIATE AND FOLLOW UP ON LABS . SIDE RAILS UP, BED LOCKED, MONITOR
--- NOTE | 2021-08-27 07:36 | NUR ---
RN CLOSING NOTES ALL PATIENTS NEEDS MET THROUGHOUT THE NIGHT. PATIENT KEPT NPO THROUGHOUT THE NIGHT PER ORDER. ENDORSED THAT ONE UNIT OF PRBC IS TO BE INFUSED PER ORDER AND H&H TO BE ORDERED AFTER INFUSION.
[2021-08-27 07:40] LABS: CALCIUM, SERUM 7.8 mg/dL (8.5-10.1); CARBON DIOXIDE 20 mmol/L (21-32); CHLORIDE 111 mmol/L (98-107); CREATININE 1.9 mg/dL (0.6-1.3); GLUCOSE 124 mg/dL (74-106); MAGNESIUM 3.2 mg/dL (1.8-2.4); PHOSPHORUS 5.2 mg/dL (2.5-4.9); POTASSIUM 5.7 mmol/L (3.5-5.1); SODIUM SERUM 141 mmol/L (136-145); UREA NITROGEN, BLOOD 72 mg/dL (7-18)
[2021-08-27 08:19] LABS: BASOPHILS % (AUTO) 0.1 % (0.0-2.0); HEMATOCRIT 22 % (39-51); HEMOGLOBIN 7.2 g/dL (13.5-17.5); LYMPHOCYTES # (AUTO) 0.4 K/uL (0.8-4.8); LYMPHOCYTES % (AUTO) 4.9 % (20.0-44.0); MEAN CORPUSCULAR HGB CONC 33 g/dl (31.0-36.0); MEAN CORPUSCULAR VOLUME 94 fL (80-96); MONOCYTES # (AUTO) 1.3 K/uL (0.1-1.30); MONOCYTES % (AUTO) 16.8 % (2.0-12.0); NEUTROPHILS % (AUTO) 78.2 % (43.0-81.0); PLATELET COUNT (AUTO) 83 K/uL (150-450); WHITE BLOOD COUNT (AUTO) 7.6 K/uL (4.3-11.0)
--- NOTE | 2021-08-27 08:30 | NUR ---
RN NOTE- TRANSFUSION STARTED ONE UNIT PRBC
[2021-08-27] MEDS: TAMSULOSIN 0.4 MG CAP.SR.24H PO SCH (09:51)
[2021-08-27] MEDS: CARVEDILOL 6.25 MG TABLET PO SCH ×2 (09:52→17:16)
[2021-08-27] MEDS: hydrALAZINE HCL 50 MG TABLET PO SCH ×3 (09:52→17:16)
[2021-08-27] MEDS: DEXAMETHASONE SOD PHOSPHATE 10 MG/ML VIAL IV SCH ×2 (09:53→17:16)
[2021-08-27] MEDS: AMLODIPINE BESYLATE 10 MG TABLET PO SCH (09:53)
[2021-08-27] MEDS: MEROPENEM 500 MG in IV NS 0.9% 50 ML IV SCH ×2 (09:54→20:41)
[2021-08-27] MEDS: ENOXAPARIN SODIUM 40 MG/0.4 ML DISP.SYRIN SQ SCH (10:30)
--- NOTE | 2021-08-27 10:34 | NUR ---
RN NOTE- LOVENOX NON ADMINISTERED. HGB 5.4, HCT 16
--- NOTE | 2021-08-27 11:40 | NUR ---
RN NOTE- TRANSFUSION COMPLETE . STAT CBC, BMP ORDERED PER CONOR DAUGHERTY. TOLERATED WELL. VS- BP- 151/76. HR-65, RR- 20, T- 98.2
[2021-08-27 12:32] LABS: BAND % (MANUAL) 2 % (0.0-5.0); LYMPHOCYTES % (MANUAL) 6 % (16-48); MONOCYTES % (MANUAL) 14 % (0-11.0); NEUTROPHILS % (MANUAL) 78 (42-76)
[2021-08-27 12:52] LABS: BASOPHILS % (AUTO) 0.1 % (0.0-2.0); HEMATOCRIT 26 % (39-51); HEMOGLOBIN 8.7 g/dL (13.5-17.5); LYMPHOCYTES # (AUTO) 0.4 K/uL (0.8-4.8); MEAN CORPUSCULAR HGB CONC 34 g/dl (31.0-36.0); MEAN CORPUSCULAR VOLUME 93 fL (80-96); MONOCYTES # (AUTO) 1.8 K/uL (0.1-1.30); MONOCYTES % (AUTO) 20.9 % (2.0-12.0); NEUTROPHILS # (AUTO) 6.3 K/uL (1.8-8.9); PLATELET COUNT (AUTO) 79 K/uL (150-450); RED BLOOD CELL COUNT(AUTO) 2.76 MIL/uL (4.5-6.0); WHITE BLOOD COUNT (AUTO) 8.5 K/uL (4.3-11.0)
[2021-08-27 15:14] LABS: CALCIUM, SERUM 7.8 mg/dL (8.5-10.1); CARBON DIOXIDE 27 mmol/L (21-32); CHLORIDE 111 mmol/L (98-107); GLUCOSE 119 mg/dL (74-106); POTASSIUM 5.6 mmol/L (3.5-5.1); SODIUM SERUM 142 mmol/L (136-145); UREA NITROGEN, BLOOD 71 mg/dL (7-18)
--- NOTE | 2021-08-27 16:56 | NUR ---
RN NOTE- IR REMOVED GROIN DRAIN. TOLERATED WELL. CONOR DAUGHERTY ORDERED CARDIAC DIET. DIETARY NOTIFIED
[2021-08-27 16:59] LABS: BAND % (MANUAL) 1 % (0.0-5.0); LYMPHOCYTES % (MANUAL) 12 % (16-48); MONOCYTES % (MANUAL) 8 % (0-11.0); NEUTROPHILS % (MANUAL) 79 (42-76)
--- NOTE | 2021-08-27 18:41 | NUR ---
RN CLOSING NOTE- PT IN BED AWAKE, AOX4, NEEDS ATTENDED, PO INTAKE 100%, PIGTAIL CAT REMOVED FROM GROIN. NO DRAINAGE NOTED. DENIES PAIN, TRANSFUSION TODAY. HGB >, K+ 5.5. WOODWORKING MACHINE OPERATOR WILLOW AWARE. BED LOCKED, SIDE RAILS UP, CALL LIGHT IN REACH. MONITOR / ASSIST
--- NOTE | 2021-08-27 19:30 | NUR ---
RN OPENING NOTE PATIENT RESTING IN BED, BED IN LOW POSITION, CALL LIGHTS WITHIN REACH, NO COMPLAINT OF PAIN AT THIS TIME, PATIENT ON TELE MONITORING SR 61, PATIENT IS S/P HIP SURGERY, ABDUCTION PILLOW PLACE AT ALL TIMES, PATIENT HAS RAC#18 AND RU MIDLINE SL, ON O2 INHALATION VIA NASAL CANNULA AT 4LPM SATURATING WELL AT 98%. ALL ISOLATION PRECAUTIONS TAKEN,SIDE RAILS UP, BED LOCKED, WILL CONTINUE TO MONITOR.
[2021-08-28] VITALS: BP 120/52
[2021-08-28 04:00] VITALS: BP 116/53
--- NOTE | 2021-08-28 06:00 | NUR ---
RN CLOSING NOTES NO SIGNIFICANT CHANGES THROUGHOUT THE NIGHT. PATIENT RECEIVED A DELIVERY OF FOOD AND HIS PHONE AND SAND BUFFER. WILL ENDORSE PLAN OF CARE TO AM NURSE.
[2021-08-28 06:58] LABS: BASOPHILS % (AUTO) 0.1 % (0.0-2.0); EOSINOPHILS % (AUTO) 0.4 % (0.0-6.0); HEMATOCRIT 25 % (39-51); HEMOGLOBIN 8.6 g/dL (13.5-17.5); LYMPHOCYTES # (AUTO) 0.7 K/uL (0.8-4.8); LYMPHOCYTES % (AUTO) 6.8 % (20.0-44.0); MEAN CORPUSCULAR HGB CONC 34 g/dl (31.0-36.0); MEAN CORPUSCULAR VOLUME 93 fL (80-96); MONOCYTES # (AUTO) 1.7 K/uL (0.1-1.30); MONOCYTES % (AUTO) 17.5 % (2.0-12.0); NEUTROPHILS # (AUTO) 7.4 K/uL (1.8-8.9); NEUTROPHILS % (AUTO) 75.2 % (43.0-81.0); PLATELET COUNT (AUTO) 87 K/uL (150-450); RED BLOOD CELL COUNT(AUTO) 2.72 MIL/uL (4.5-6.0); WHITE BLOOD COUNT (AUTO) 9.9 K/uL (4.3-11.0)
[2021-08-28 07:50] LABS: CARBON DIOXIDE 26 mmol/L (21-32); CHLORIDE 111 mmol/L (98-107); CREATININE 1.8 mg/dL (0.6-1.3); GLUCOSE 134 mg/dL (74-106); PHOSPHORUS 3.8 mg/dL (2.5-4.9); POTASSIUM 4.9 mmol/L (3.5-5.1); SODIUM SERUM 142 mmol/L (136-145); UREA NITROGEN, BLOOD 62 mg/dL (7-18)
[2021-08-28 08:00] VITALS: BP 104/62
--- NOTE | 2021-08-28 08:00 | NUR ---
INVASIVE CARDIOVASCULAR TECHNOLOGIST NOTE PATIENT IN BED , ALL NEEDS ATTENDED W ON 3L NC NO SOB NOTED AT THIS TIME SATURATION 99%, ON TELE MONITOR SR HR 62, ABLE TO EAT BREAKFAST SELF RT AC AND ASHTYN MID LINE IN PLACE , BED IN LOWEST AND LOCKED POSITION SEEN BY PT ABLE TO MAKE FEE STEPS ABDUCTION PILLOW IN PLACE ALL NEEDS ATTENDED WILL CONT TO MONITOR, LT HIP DRESSING IN PLACE NO BLEEDING NOTED CALL LIGHT WITHIN REACH
[2021-08-28] MEDS: DEXAMETHASONE SOD PHOSPHATE 10 MG/ML VIAL IV SCH ×2 (08:45→16:30)
[2021-08-28] MEDS: TAMSULOSIN 0.4 MG CAP.SR.24H PO SCH (08:45)
[2021-08-28] MEDS: hydrALAZINE HCL 50 MG TABLET PO SCH ×3 (08:46→16:31)
[2021-08-28] MEDS: CARVEDILOL 6.25 MG TABLET PO SCH ×2 (08:46→16:30)
[2021-08-28] MEDS: AMLODIPINE BESYLATE 10 MG TABLET PO SCH (08:47)
[2021-08-28] MEDS: MEROPENEM 500 MG in IV NS 0.9% 50 ML IV SCH ×2 (09:02→20:35)
[2021-08-28] MEDS: ENOXAPARIN SODIUM 40 MG/0.4 ML DISP.SYRIN SQ SCH (10:38)
[2021-08-28 11:17] LABS: BAND % (MANUAL) 2 % (0.0-5.0); LYMPHOCYTES % (MANUAL) 8 % (16-48); MONOCYTES % (MANUAL) 10 % (0-11.0); NEUTROPHILS % (MANUAL) 80 (42-76)
--- NOTE | 2021-08-28 11:34 | NUR ---
CAR EXAMINER NOTE DR ABRAMS AT BEDSIDE UPDATED PATIENT CONDITION , ALSO NOTIFIED THAT PATIENT IS COUGHING WITH ORDER ROBITUSSIN GIVEN , ORDER
[2021-08-28 12:00] VITALS: BP 147/77
[2021-08-28] MEDS ORDERED: GUAIFENESIN/D-METHORPHAN HB 5 ML UDC PO PRN (12:00)
[2021-08-28] MEDS ORDERED: ENOX40DI SQ (12:40)
--- NOTE | 2021-08-28 13:32 | NUR ---
returned telephone equipment appraiser note seen by pt able to make few steps with walker will f\u
--- NOTE | 2021-08-28 14:45 | NUR ---
tele grout sewer line repairer note per case management coordinator no bed available yet to transfer to snf
[2021-08-28 16:00] VITALS: BP 147/53
--- NOTE | 2021-08-28 18:25 | NUR ---
telemetry rn note resting comfortably ,all needs attended ,not in distress, refused to have abduction pillow but per pt ok to have pillow between legs, caLL LIGHT WITHIN REACH NO SOB NOTED , will cont to monitor
--- NOTE | 2021-08-28 19:30 | NUR ---
RN OPENING NOTE PATIENT RESTING IN BED, BED IN LOW POSITION, CALL LIGHTS WITHIN REACH, NO COMPLAINT OF PAIN AT THIS TIME, PATIENT ON TELE MONITORING SINUS JACOB 60HR, PATIENT HAS RAC#18 AND RU MIDLINE SL, ON O2 INHALATION VIA NASAL CANNULA AT 3LPM SATURATING WELL AT 99%. ALL ISOLATION PRECAUTIONS TAKEN,SIDE RAILS UP, BED LOCKED, WILL CONTINUE TO MONITOR.
[2021-08-28 20:00] VITALS: BP 142/63
[2021-08-29] VITALS: BP 148/66
[2021-08-29 04:00] VITALS: BP 133/65
--- NOTE | 2021-08-29 06:30 | NUR ---
RN NOTE PATIENT RESTING IN BED. NO SIG CHANGES THROUGHOUT THE NIGHT. KEPT PATIENT DRY AND CLEAN. ALL PATIENT NEEDS MET THROUGH THE NIGHT. WILL ENDORSE PLAN OF CARE TO AM NURSE.
[2021-08-29 08:00] VITALS: BP 150/65
[2021-08-29] MEDS: DEXAMETHASONE SOD PHOSPHATE 10 MG/ML VIAL IV SCH (09:42)
[2021-08-29] MEDS: TAMSULOSIN 0.4 MG CAP.SR.24H PO SCH (09:43)
[2021-08-29] MEDS: hydrALAZINE HCL 50 MG TABLET PO SCH ×2 (09:44→13:11)
[2021-08-29] MEDS: CARVEDILOL 6.25 MG TABLET PO SCH (09:44)
[2021-08-29] MEDS: AMLODIPINE BESYLATE 10 MG TABLET PO SCH (09:44)
[2021-08-29] MEDS: ENOXAPARIN SODIUM 40 MG/0.4 ML DISP.SYRIN SQ SCH (09:45)
[2021-08-29] MEDS: MEROPENEM 500 MG in IV NS 0.9% 50 ML IV SCH (09:45)
[2021-08-29] MEDS ORDERED: REMDESIVIR (CHARGED) 200 MG, *LOADING DOSE 1 EA in IV NS 0.9% 210 ML IV ONE (11:30)
[2021-08-29 12:00] VITALS: BP 145/61
[2021-08-29 13:11] VITALS: BP 145/61
--- NOTE | 2021-08-29 15:37 | NUR ---
DC NOTES PT DC'S TO [facility] AT APPROX 1530 IN STABLE CONDITION. DC INSTRUCTIONS GIVEN AND EXPLAINED TO PT. PT VERBALIZED UNDERSTANDING. ALL PAPERWORK SIGNED AND COMPLETED. ALL BELONGINGS SENT WITH PT. REMOVED ASHTYN MIDLINE AND DC CLARKE. NO COMPLICATIONS NOTED , PT LEFT UNIT IN STABLE CONDITION VIA GURNEY. PT ENDORSED TO AMBULANCE CREW ACCORDINGLY.
[2021-08-30] MEDS ORDERED: REMDESIVIR (CHARGED) 100 MG in IV NS 0.9% 100 ML IV SCH (11:30)
== END 2021-08-29 15:29 | DRG 950 ==
LOC: ER 10:32 → TRANSITION 15:02 → TELE1 19:52
PROVIDERS: ADMIT Registered Nurse; ATTEND Internal Medicine
PROC: 30233N1 Transfusion of Nonautologous Red Blood Cells into Peripheral Vein, Percutaneous Approach (ICD-10-PCS; 2021-08-24)
PROC: 0SRS0JZ Replacement of Left Hip Joint, Femoral Surface with Synthetic Substitute, Open Approach (ICD-10-PCS; principal; 2021-08-25)
PROC: 05H933Z Insertion of Infusion Device into Right Brachial Vein, Percutaneous Approach (ICD-10-PCS; 2021-08-25)
PROC: 0VP Male Reproductive System, Removal (ICD-10-PCS; 2021-08-27)
DX: U07.1 COVID-19 (principal); J96.01 Acute respiratory failure with hypoxia; J12.82 Pneumonia due to coronavirus disease 2019; N17.0 Acute kidney failure with tubular necrosis; D61.818 Other pancytopenia; J15.9 Unspecified bacterial pneumonia; D68.9 Coagulation defect, unspecified; D63.1 Anemia in chronic kidney disease; S72.002A Fracture of unspecified part of neck of left femur, initial encounter for closed fracture; I13.0 Hypertensive heart and chronic kidney disease with heart failure and stage 1 through stage 4 chronic kidney disease, or unspecified chronic kidney disease; E44.0 Moderate protein-calorie malnutrition; I50.32 Chronic diastolic (congestive) heart failure; C78.7 Secondary malignant neoplasm of liver and intrahepatic bile duct; I48.91 Unspecified atrial fibrillation; Z85.118 Personal history of other malignant neoplasm of bronchus and lung; Z85.038 Personal history of other malignant neoplasm of large intestine; Z90.49 Acquired absence of other specified parts of digestive tract; Z87.891 Personal history of nicotine dependence; Z98.890 Other specified postprocedural states; Z79.899 Other long term (current) drug therapy; N40.0 Benign prostatic hyperplasia without lower urinary tract symptoms; D53.9 Nutritional anemia, unspecified; J44.0 Chronic obstructive pulmonary disease with (acute) lower respiratory infection; N18.4 Chronic kidney disease, stage 4 (severe); Z85.05 Personal history of malignant neoplasm of liver; Z95.828 Presence of other vascular implants and grafts; I70.0 Atherosclerosis of aorta; E87.5 Hyperkalemia; R64 Cachexia; W18.30XA Fall on same level, unspecified, initial encounter; Z91.81 History of falling; Y92.230 Patient room in hospital as the place of occurrence of the external cause
CPT/HCPCS: 36410; 36415; 71045-TC; 72170-TC; 73502; 73552; 73700-TC; 75989; 80048-TC; 80053-TC; 80076-TC; 82550-TC; 82728-TC; 83540-TC; 83615-TC; 83735-TC; 84100-TC; 84443-TC; 84484-TC; 85025-TC; 85027-TC; 85378-TC; 85730-TC; 86140-TC; 86850-TC; 87040-TC; 87081-TC; 88305-TC; 88311-TC; 93307-TC; 97110-TC; 97112-TC; 97116-TC; 97530-TC; A4217; A6209; C1776; C9803; G0378; J0456; J0690; J0696; J1100; J1644; J1650; J1815; J2060; J2185; J2370; J2405; J3010; J3490; J7030; J7040; J7050; J7060; P9016; U0003